=== PATIENT | female | born 1960 | race American Indian/Alaskan Native ===

== ENCOUNTER → 2023-11-02 | Outpatient (CLI) | payer SELFPAY | END | disposition home or self-care (01) | LOC: CARD 08:41 | PROVIDERS: ATTEND Internal Medicine | DX: I45.10 Unspecified right bundle-branch block (principal); I10 Essential (primary) hypertension; J44.9 Chronic obstructive pulmonary disease, unspecified; E78.5 Hyperlipidemia, unspecified | CPT/HCPCS: 78452; 93017; A9500 ==

== ENCOUNTER 2024-06-09 02:21 | Inpatient (IN) | payer MEDICAID, OTHER ==
[~2024-06-09] VITALS: Ht 170.2 cm; Wt 125.0 kg
[2024-06-09] VITALS (58 sets, daily range): BP systolic 102–159; BP diastolic 54–110; PULSE 60–97; RESP 17–90; TEMP 98–98.2; O2SAT 90–100
[2024-06-09] MEDS: DexAMETHasone SOD PHOS 10MG/1ML VIAL INJ ONE (02:42)
[2024-06-09] MEDS: diphenhdrAMINE HCL 50 MG/1 ML VL IV ONE (02:43)
[2024-06-09] MEDS: DexAMETHasone INJECTION 10 MG in D5W 5% 50 ML IV ONE (02:43)
[2024-06-09] MEDS: SUCCINYLCHOLINE CHLORIDE 20 MG/ML 10ML VIAL IV ONE ×2 (02:48→02:52)
[2024-06-09] MEDS: ONDANSETRON HCL 4 MG/2 ML VIAL ONE (02:48)
[2024-06-09] MEDS: ETOMIDATE (2MG/ML) 20ML VIAL IV ONE ×2 (02:48→02:50)
[2024-06-09] MEDS: ONDANSETRON HCL 4 MG/2 ML VIAL IV ONE (02:49)
[2024-06-09 02:58] LABS: Basophils # (auto) 0.1 10 ^3/uL (0-0.2); Eosinophils # (auto) 0.4 10 ^3/uL (0-0.8); Hemoglobin 13.7 g/dL (12.2-16.2); Lymphocytes # (auto) 2.6 10 ^3/uL (0.4-5.4); Mean Corpuscular Volume 80.5 fL (80.0-100.0); Nucleated Red Blood Cells % 0.1 %
[2024-06-09 03:04] LABS: Basophils % (auto) 1.1 % (0.0-2.0); Eosinophils % (auto) 3.5 % (0.0-7.0); Hematocrit 42.1 % (36.0-46.0); Lymphocytes % (auto) 26.3 % (10.0-50.0); Mean Corpuscular Hemoglobin 26.2 pg (28.0-32.0); Mean Corpuscular Hgb Conc. 32.6 g/dL (32.0-36.0); Monocytes # (auto) 0.7 10 ^3/uL (0-1.3); Monocytes % (auto) 6.9 % (0.0-12.0); Neutrophils # (auto) 6.2 10 ^3/uL (1.6-8.6); Neutrophils % (auto) 62.2 % (37.0-80.0); Platelet Count (auto) 263 10^3/uL (140-450); Red Blood Cells 5.23 10^6/uL (4.0-5.20); Red Cell Distribution Width 15.5 % (11.8-14.3)
[2024-06-09] MEDS: MAGNESIUM SULFATE 1GM/100ML 100 ML IV SCH (03:04)
[2024-06-09] MEDS: PROPOFOL 100 ML IV SCH (03:15)
[2024-06-09] MEDS ORDERED: MIDAZOLAM HCL 5 MG/ML-1ML VIAL IV ONE (03:15)
[2024-06-09] MEDS: MIDAZOLAM DRIP 50 mg/50mL 50 ML IV SCH (03:15)
[2024-06-09] MEDS: EPINEPHrine HCL 1 MG/1 ML AMP IM ONE (03:20)
[2024-06-09] MEDS: PROPOFOL 100 ML IV ONE (03:20)
[2024-06-09] MEDS: MIDAZOLAM HCL 5 MG/ML-1ML VIAL IV ONE ×2 (03:20→03:30)
[2024-06-09] MEDS: MIDAZOLAM DRIP 50 mg/50mL 50 ML IV ONE (03:20)
[2024-06-09] MEDS: MAGNESIUM SULFATE 1GM/100ML 200 ML IV ONE (03:20)
[2024-06-09] MEDS: MIDAZOLAM HCL 5 MG/ML-1ML VIAL ONE (03:20)
[2024-06-09] MEDS: METOPROLOL TARTRATE 1MG/1ML-5ML VIAL IV ONE ×2 (03:29)
[2024-06-09] MEDS: ALBUTEROL SULF 2.5 MG/0.5ML(0.5%) NEB SOLN NEB ONE (03:34)
[2024-06-09 03:49] LABS: Alanine Aminotransferase 19 U/L (7-40); Albumin 4.4 g/dL (3.2-4.8); Anion Gap 8 (5-15); Aspartate Aminotransferase 28 U/L (13-40); BUN/Creatinine Ratio 10.7 (10.0-20.0); Bilirubin, Total 0.4 mg/dL (0.2-1.0); Blood Urea Nitrogen 11 mg/dL (9-23); Calcium 9.9 mg/dL (8.7-10.4); Carbon Dioxide 23 mmol/L (20-31); Potassium 3.8 mmol/L (3.5-5.1); Sodium 141 mmol/L (136-145); Total Protein 7.6 g/dL (5.7-8.2)
--- NOTE | 2024-06-09 04:00 | ED.PDOC ---
HPI Allergic reaction HPI Comments 63-year-old female came to emergency room due to allergic reaction. Patient has history of hypertension, but she could not recall what medication she takes. As of 7:00 p.m. last night, patient has been experiencing facial swelling, tongue swelling, throat swelling, difficulty swallowing, shortness of breath and wheezing. Patient unable to speak in full sentences, and in respiratory distress at this time care, saturating 95% on room air Chief Complaint: Allergic Reaction Time Seen by MD: 03:58 Reviewed Notes: Nurses Notes Allergies: Coded Allergies: NO KNOWN ALLERGIES (Unverified , 06/09/24) Home Meds Reported Medications Lisinopril (Lisinopril) 20 Mg Tab, 1 TAB PO BID 06/09/24 Atorvastatin Calcium (ATORVASTATIN CALCIUM) 20 Mg Tab, 1 TAB PO DAILY 06/09/24 Information Source: Patient Mode of Arrival: Ambulatory Severity: Severe Rash: None SOB: Severe Difficulty swallowing: Severe Pruritus: None Timing: Hours Duration: Since onset Prehospital treatment: None Location: Face, Throat, Tongue Exposed to: Medication Developed: Difficult Swallowing, Facial Swelling Review of Systems REVIEW OF SYSTEMS: No fever, no chills, or fatigue HEENT: (+) difficulty swallowing, (+) tongue swelling, no earache, no congestion, no neck pain. Cardiac: No chest pain. No palpitations. Lungs: (+) shortness of breath, no cough. GI: No nausea, no vomiting, no diarrhea, no constipation, no abdominal pain : No dysuria, frequency, or urgency. No hematuria. Musculoskeletal: No joint pain , no joint swelling, no extremity edema. Skin: No rash, no itching. Neuro: No headache, no dizziness, no weakness Vital Signs Vital Signs Date Time Temp Pulse Resp B/P (MAP) Pulse Ox O2 Delivery O2 Flow Rate FiO2 06/09/24 07:45 94 22 151/102 (118) 96 06/09/24 07:33 Mechanical Ventilator+ 70 70 06/09/24 03:08 99.0 99.0 06/09/24 02:49 0 Physical Exam General: Awake, alert and oriented. Skin: Skin in warm, dry and intact. Appropriate color for ethnicity. Nailbeds pink with no cyanosis. HEENT: Tongue is swollen and protruding from mouth, patient is unable to swallow her secretions, muffled voice Neck: The neck is supple with normal range of motion. No JVD. Cardiac: Heart rate and rhythm are normal. No murmurs, gallops, or rubs are auscultated. Respiratory: No wheezing, no stridor, patient is tachypneic Abdominal: Abdomen is soft, non-tender without distention. Bowel sounds are present and normoactive in all four quadrants. Extremities: Upper and lower extremities are atraumatic in appearance without deformity Neurological: The patient is awake, alert and oriented to person, place, and time with normal speech. Speech is clear. There is no facial asymmetry. Past Medical History PAST MEDICAL HISTORY: HTN Surgical History: Denies all surgeries APPLICATIONS TESTER History: Denies all APPLICATIONS TESTER Hx Family History Family History: Reviewed,noncontributory to illness Social History Smoker: Non-Smoker Alcohol: Denies ETOH Use Drugs: Denies Drug Use Lives In: Home Was a procedure done? Was a procedure done?: Yes Sedation Sedation?: Yes Informed consent obtained: Yes Sedation start time: 02:48 Sedation end time: 03:48 Sedation total time: Patient is still sedated at this time Intubation Indication: Airway Protection Prep: Preoxygenation Pretreated with: Sedation Medicated with: Succinylcholine, Other (Etomidate) Intubation Approach: Orotracheal Intubation size: cm (6.5, 24 of the lip) Informed consent obtained: Yes Risks/benefits/alt described: Yes EKG EKG : Pulse Rate (adult): 133 Cardiac Rhythm: ST Block: RBBB Comments Left anterior fascicular block, No STEMI Differential diagnosis (all) Differential Diagnosis: Anaphylaxis, Angioedema, Bronchospasm, Drug Reaction, Other X-Ray, Labs, Meds, VS Vital Signs Date Time Temp Pulse Resp B/P (MAP) Pulse Ox O2 Delivery O2 Flow Rate FiO2 06/09/24 07:45 94 22 151/102 (118) 96 06/09/24 07:33 94 22 95 Mechanical Ventilator+ 70 70 06/09/24 07:21 87 22 140/54 (82) 95 70 06/09/24 07:15 87 22 140/99 (113) 95 06/09/24 07:00 137/97 06/09/24 07:00 137/97 06/09/24 07:00 88 22 138/93 (108) 95 06/09/24 06:39 142/100 (114) 95 70 06/09/24 06:30 90 22 142/100 (114) 97 06/09/24 06:15 93 22 152/108 (123) 96 06/09/24 06:00 151/108 06/09/24 06:00 151/108 06/09/24 06:00 95 22 151/108 (122) 96 06/09/24 05:45 98 22 159/108 (125) 97 06/09/24 05:34 94 22 159/108 (125) 96 100 06/09/24 05:30 94 22 165/113 (130) 96 06/09/24 05:15 95 22 162/112 (129) 96 06/09/24 05:00 97 22 160/112 (128) 95 06/09/24 05:00 160/112 06/09/24 05:00 160/112 06/09/24 04:45 97 22 157/110 (126) 97 06/09/24 04:40 97 22 157/110 (126) 97 100 06/09/24 04:30 96 18 150/107 (121) 97 06/09/24 04:29 96 150/107 06/09/24 04:15 96 19 136/98 (111) 97 06/09/24 04:00 96 20 129/96 (107) 95 06/09/24 04:00 129/96 06/09/24 04:00 129/99 06/09/24 04:00 133 06/09/24 03:55 120/93 06/09/24 03:45 91 20 120/93 (102) 97 06/09/24 03:45 120/93 06/09/24 03:45 120/93 06/09/24 03:30 128 19 131/94 (106) 97 06/09/24 03:30 131/94 06/09/24 03:29 126 131/94 06/09/24 03:15 197/131 06/09/24 03:15 197/131 06/09/24 03:15 197/131 06/09/24 03:15 130 20 197/131 (153) 92 06/09/24 03:09 133 06/09/24 03:08 99.0 98 20 160/103 (122) 95 99.0 06/09/24 03:00 142 19 97 06/09/24 02:55 132 26 177/122 (140) 94 100 06/09/24 02:49 94 19 94 Room Air* 0 21 06/09/24 02:45 96 19 168/108 (128) 94 Lab Test 06/09/24 06:35 06/09/24 05:47 06/09/24 04:32 06/09/24 04:19 Range/Units Blood Gas Specimen Type Arterial Arterial Blood Gas Sample Site Left radial Right brachial Blood Gas Patient Temperature 37.0 37.0 Arterial Blood Date Drawn [id number] Arterial Blood pH 7.354 7.281 L 7.350-7.450 Arterial Blood Partial Pressure CO2 41.1 49.9 H 32.0-45.0 mmHg Arterial Blood Partial Pressure O2 104.6 117.6 H 83.0-108.0 mmHg Arterial Blood HCO3 22.4 23.0 21.0-28.0 mmol/L Arterial Blood Oxygen Saturation 97.4 97.9 94.0-98.0 % Arterial Blood Base Excess -3.0 L -4.1 L -2.0-3.0 mmol/L Arterial Blood Oxyhemoglobin 95.4 95.2 94.0-98.0 % Arterial Blood Carboxyhemoglobin 1.5 2.2 H 0.5-1.5 % Arterial Blood Methemoglobin 0.6 0.6 0.0-1.5 % Ken Test Modified Modified Blood Gas Total Hemoglobin 14.60 14.30 12.0-16.0 g/dL Blood Gas Set Respiration Rate 22.0 14.0 Blood Gas Modality Vent - ac Vent - ac FiO2 % 100.0 100.0 Blood Gas Tidal Volume 500.0 500.0 Blood Gas PEEP or CPAP 10.0 10.0 Troponin I High Sensitivity 286 *H </=34 ng/L Urine Color Colorless Yellow Urine Clarity Clear Clear Urine pH 6.0 5.0-9.0 Urine Specific [place] 1.005 1.001-1.035 Urine Protein Negative Negative Urine Ketones Negative Negative Urine Blood Negative Negative /uL Urine Nitrite Negative Negative Urine Bilirubin Negative Negative Urine Urobilinogen Normal Negative mg/dL Urine Leukocyte Esterase Negative Negative /uL Urine RBC 1 0 - 4 /hpf Urine Microscopic WBC < 1 0-5 /HPF Urine Squamous Epithelial Cells Few <5 /hpf Urine Bacteria Few H None Seen /hpf Urine Mucus Few None Seen Urine Glucose Normal Normal mg/dL Test 06/09/24 03:45 06/09/24 02:44 Range/Units Troponin I High Sensitivity 37 *H 6 </=34 ng/L White Blood Count 10.0 4.4-10.8 10^3/uL Red Blood Count 5.23 H 4.0-5.20 10^6/uL Hemoglobin 13.7 12.2-16.2 g/dL Hematocrit 42.1 36.0-46.0 % Mean Corpuscular Volume 80.5 80.0-100.0 fL Mean Corpuscular Hemoglobin 26.2 L 28.0-32.0 pg Mean Corpuscular Hemoglobin Concent 32.6 32.0-36.0 g/dL Red Cell Distribution Width 15.5 H 11.8-14.3 % Platelet Count 263 140-450 10^3/uL Mean Platelet Volume 7.7 6.9-10.8 fL Neutrophils (%) (Auto) 62.2 37.0-80.0 % Lymphocytes (%) (Auto) 26.3 10.0-50.0 % Monocytes (%) (Auto) 6.9 0.0-12.0 % Eosinophils (%) (Auto) 3.5 0.0-7.0 % Basophils (%) (Auto) 1.1 0.0-2.0 % Neutrophils # (Auto) 6.2 1.6-8.6 10 ^3/uL Lymphocytes # (Auto) 2.6 0.4-5.4 10 ^3/uL Monocytes # (Auto) 0.7 0-1.3 10 ^3/uL Eosinophils # (Auto) 0.4 0-0.8 10 ^3/uL Basophils # (Auto) 0.1 0-0.2 10 ^3/uL Nucleated Red Blood Cells 0.1 % Sodium Level 141 136-145 mmol/L Potassium Level 3.8 3.5-5.1 mmol/L Chloride Level 110 H 98-107 mmol/L Carbon Dioxide Level 23 20-31 mmol/L Anion Gap 8 5-15 Blood Urea Nitrogen 11 9-23 mg/dL Creatinine 1.03 H 0.550-1.02 mg/dL Glomerular Filtration Rate Calc 61 >90 mL/min BUN/Creatinine Ratio 10.7 10.0-20.0 Serum Glucose 114 H 74-106 mg/dL Hemoglobin A1c 6.1 H <5.7 % A1C Lactic Acid Level 1.2 0.4-2.0 mmol/L Calcium Level 9.9 8.7-10.4 mg/dL Total Bilirubin 0.4 0.2-1.0 mg/dL Aspartate Amino Transferase (AST) 28 13-40 U/L Alanine Aminotransferase (ALT) 19 7-40 U/L Alkaline Phosphatase 144 H 46-116 U/L B-Type Natriuretic Peptide 20.54 0-100 pg/mL Total Protein 7.6 5.7-8.2 g/dL Albumin 4.4 3.2-4.8 g/dL Current Medications Medications (Trade) Dose Ordered Sig/Maday Route Start Time Stop Time Status Last Admin Epinephrine HCl 0.5 mg ONCE ONCE IM 06/09/24 02:45 06/09/24 02:46 DC 06/09/24 03:20 Dexamethasone Sodium Phosphate 10 mg/Dextrose 51 ml @ 204 mls/hr ONCE ONCE IV 06/09/24 02:45 06/09/24 02:59 DC 06/09/24 02:43 Diphenhydramine HCl (Benadryl Injection) 50 mg ONCE ONCE IV 06/09/24 02:45 06/09/24 02:46 DC 06/09/24 02:43 Ondansetron HCl (Zofran) 4 mg ONCE ONCE IV 06/09/24 03:00 06/09/24 03:01 DC 06/09/24 02:49 Etomidate 20 mg ONCE ONCE IV 06/09/24 03:00 06/09/24 03:26 DC 06/09/24 02:50 Succinylcholine Chloride (Quelicin) 100 mg ONCE ONCE IV 06/09/24 03:00 06/09/24 03:26 DC 06/09/24 02:52 Propofol 100 ml @ 3.558 mls/ hr Q24H IV 06/09/24 03:00 06/09/24 12:49 Metoprolol Tartrate (Lopressor) 5 mg ONCE ONCE IV 06/09/24 03:15 06/09/24 03:26 DC 06/09/24 03:29 Albuterol (Ventolin Medneb) 2.5 mg ONCE ONCE NEB 06/09/24 03:15 06/09/24 03:16 DC 06/09/24 03:34 Midazolam HCl 50 ml @ 1 mls/hr Q24H IV 06/09/24 03:15 06/09/24 14:10 Midazolam HCl (Versed Injection) 10 mg ONCE ONCE IV 06/09/24 04:30 06/09/24 04:31 DC 06/09/24 03:20 Magnesium Sulfate/ Dextrose 100 ml @ 100 mls/hr Q1H IV 06/09/24 07:45 06/09/24 08:30 DC 06/09/24 03:19 CHEST RADIOGRAPH Indication: Shortness of breath Technique: Single frontal view of the chest was obtained COMPARISON: None FINDINGS: Lines and Tubes: Endotracheal tube tip projects approximately 2.7 cm above the level of the ambar. Enteric catheter courses below the level of the diaphragm, terminating within the left upper quadrant. Lungs: Moderate opacification of the left lung consistent with pulmonary airspace disease. Pleura: No effusion. No pneumothorax. Cardiomediastinal contours: The heart is enlarged. Bones: Unremarkable IMPRESSION: 1. Left pulmonary airspace disease. 2. Cardiomegaly. 3. Lines and tubes as above. Time of 1ST Reevaluation: 03:55 Reevaluation 1ST: Unchanged Patient Education/Counseling: Diagnosis, Treatment Family Education/Counseling: No Family Present Departure 1 Departure Time of Disposition: 04:53 Impression: Primary Impression: Angioedema Additional Impressions: Endotracheally intubated Elevated troponin Disposition: 01 HOME / SELF CARE / HOMELESS Condition: Stable Comments 63-year-old female who presented to the emergency department with significant tongue swelling, she was having difficulty managing her secretions, difficulty speaking. Patient was seen in triage, taken to ED bed immediately. Administered Decadron, epinephrine. Patient was intubated immediately for concerning impending airway compromise. There was significant edema of the airway structures. Patient was intubated on the 2nd attempt using the GlideScope. Patient went into a sinus tachycardic rhythm with bundle branch block at a rate of 135 after the intubation. Patient's heart rate and blood pressure improved after dose of metoprolol. Patient admitted for further treatment, evaluation and monitoring. Discussed with the patient's daughter via phone. Extensive evaluation was performed in attempt to identify or rule out: (See differential diagnosis section) The following tests were ordered, and results were reviewed by me and discussed with patient: (See diagnostic results section) The following test were independently interpreted by me: EKG, I reviewed and agreed with the following test results read by other providers: N/A I reviewed the following notes from the pt's past medical encounters: N/A Additional information was gathered from interviewing the following independent historians: Patient's daughter Discussion of management or test interpretation with external physician/other qualified health director long term care: N/A Addressed an acute or chronic illness that poses a threat to life or bodily function: Angioedema, airway compromise Decision regarding hospitalization or escalation of hospital level of care: Risk and benefits of admission for further treatment of patient's condition was considered. Due to patient's current clinical condition, high risk of decline and poor outcome if discharged and need for further inpatient management and monitoring, patient will be admitted to the hospital. Discussed with patient. Drug therapy requiring intensive monitoring for toxicity: IV succinylcholine, IV dexamethasone, IM epinephrine Parenteral controlled substances: IV etomidate, IV propofol, IV Versed Decision regarding elective major surgery with identified patient or procedure risk factors: N/A Decision regarding emergency major surgery: N/A Decision not to resuscitate or to de-escalate care because of poor prognosis: N/A Diagnosis or treatment significantly limited by social determinants of health: N/A Critical Care Note Critical Care Time?: Yes (35 min-critical care time only) Critical care comment: Angioedema. Due to a high probability of clinically significant, life threatening deterioration, the patient required my highest level of preparedness to intervene emergently and I personally spent this critical care time directly and personally managing the patient. This critical care time included obtaining a history; examining the patient; pulse oximetry; ordering and review of studies; arranging urgent treatment with development of a management plan; evaluation of patient's response to treatment; frequent reassessment; and, discussions with other providers. This critical care time was performed to assess and manage the high probability of imminent, life-threatening deterioration that could result in multi-organ failure. It was exclusive of separately billable procedures and treating other patients and teaching time. Please see my other sections and the rest of the note for further information on patient assessment and treatment. Stability Stability form required: No Heart Score Heart Score: Heart Score Response (Comments) Value History N/A 0 EKG N/A 0 Age N/A 0 Risk Factors N/A 0 Troponin N/A 0 Total 0 I personally scribed for ISABEL IVORY MD ([email or web address]) on 06/09/24 at 04:00. Electronically submitted by Ryne Villar ([place]). I personally scribed for ISABEL IVORY MD ([email or web address]) on 06/09/24 at 04:49. Electronically submitted by Ryne Villar ([place]). ISABEL IVORY MD Jun 09, 2024 04:00
--- NOTE | 2024-06-09 04:21 | DVH ---
CHEST RADIOGRAPH Indication: Shortness of breath Technique: Single frontal view of the chest was obtained COMPARISON: None FINDINGS: Lines and Tubes: Endotracheal tube tip projects approximately 2.7 cm above the level of the ambar. E nteric catheter courses below the level of the diaphragm, terminating within the left upper quadrant. Lungs: Moderate opacification of the left lung consistent with pulmonary airspace disease. Pleura: No effusion. No pneumothorax. Cardiomediastinal contours: The heart is enlarged. Bones: Unremarkable IMPRESSION: 1. Left pulmonary airspace disease. 2. Cardiomegaly. 3. Lines and tubes as above.
[2024-06-09 04:29] LABS: Alkaline Phosphatase 144 U/L (46-116); Chloride 110 mmol/L (98-107); Glucose 114 mg/dL (74-106)
[2024-06-09 04:37] LABS: Base Excess -4.1 mmol/L (-2.0-3.0)
[2024-06-09 04:52] LABS: Urine Bacteria FEW /hpf (None Seen); Urine Blood Negative /uL (Negative); Urine Clarity Clear (Clear); Urine Color Colorless (Yellow); Urine Mucus FEW (None Seen); Urine Protein, UAD Negative (Negative); Urine Specific Gravity 1.005 (1.001-1.035); Urine Squamous Epithelial Cell FEW /hpf (<5); Urine Urobilinogen Normal (Negative); Urine WBC < 1 /HPF (0-5)
--- NOTE | 2024-06-09 05:14 | ECG ---
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
--- NOTE | 2024-06-09 07:56 | DVHHP2 ---
History of Present Illness Reason for Visit: Allergic reaction History of Present Illness This 63-year-old female presents in the ED with a chief complaint of allergic reaction. Upon assessment, the patient is currently intubated due to severe allergic reaction with angioedema. Medical records obtained from nursing staff, apparently symptoms of facial swelling, tongue swelling, throat swelling, shortness of breath, and wheezing started last night. Past medical history of hypertension and obesity Past Medical History As stated in HPI Past Surgical History Unknown Family History Unknown Past Social History Unknown Review of Systems Review of Systems ROS see HPI Allergies: Coded Allergies: NO KNOWN ALLERGIES (Unverified , 06/09/24) Medications Current Medications Medications Dose Ordered Sig/Maday Route Start Time Stop Time Status Last Admin Dose Admin Propofol 100 ml @ 3.558 mls/ hr Q24H IV 06/09/24 03:00 06/09/24 03:15 3.558 MLS/HR Midazolam HCl 50 ml @ 1 mls/hr Q24H IV 06/09/24 03:15 06/09/24 03:15 1 MLS/HR Magnesium Sulfate/ Dextrose 100 ml @ 100 mls/hr Q1H IV 06/09/24 07:45 06/09/24 09:44 UNV Exam Vital Signs Vital Signs Date Time Temp Pulse Resp B/P (MAP) Pulse Ox O2 Delivery O2 Flow Rate FiO2 06/09/24 07:33 94 22 95 Mechanical Ventilator+ 70 70 06/09/24 07:21 140/54 (82) 06/09/24 03:08 99.0 99.0 06/09/24 02:49 0 General Appearance: Other (Orally intubated) HEENT: Atraumatic, Other (Angioedema) Respiratory: Clear to auscultation, Normal air movement, Other (Mechanical intubation) Cardiovascular: Regular rate, Normal S1 Abdominal: Normal bowel sounds, Soft, No tenderness Extremities: No clubbing, No cyanosis, No edema, Normal pulses Skin: No rashes, No breakdown Neuro: Other (Sedated) Labs/Xrays Labs Test 06/09/24 06:35 06/09/24 05:47 06/09/24 04:19 06/09/24 02:44 Range/Units Blood Gas Specimen Type Arterial Blood Gas Sample Site Left radial Blood Gas Patient Temperature 37.0 Arterial Blood Date Drawn [id number] Arterial Blood pH 7.354 7.350-7.450 Arterial Blood Partial Pressure CO2 41.1 32.0-45.0 mmHg Arterial Blood Partial Pressure O2 104.6 83.0-108.0 mmHg Arterial Blood HCO3 22.4 21.0-28.0 mmol/L Arterial Blood Oxygen Saturation 97.4 94.0-98.0 % Arterial Blood Base Excess -3.0 L -2.0-3.0 mmol/L Arterial Blood Oxyhemoglobin 95.4 94.0-98.0 % Arterial Blood Carboxyhemoglobin 1.5 0.5-1.5 % Arterial Blood Methemoglobin 0.6 0.0-1.5 % Ken Test Modified Blood Gas Total Hemoglobin 14.60 12.0-16.0 g/dL Blood Gas Set Respiration Rate 22.0 Blood Gas Modality Vent - ac FiO2 % 100.0 Blood Gas Tidal Volume 500.0 Blood Gas PEEP or CPAP 10.0 Troponin I High Sensitivity 286 *H </=34 ng/L Urine Color Colorless Yellow Urine Clarity Clear Clear Urine pH 6.0 5.0-9.0 Urine Specific [place] 1.005 1.001-1.035 Urine Protein Negative Negative Urine Ketones Negative Negative Urine Blood Negative Negative /uL Urine Nitrite Negative Negative Urine Bilirubin Negative Negative Urine Urobilinogen Normal Negative mg/dL Urine Leukocyte Esterase Negative Negative /uL Urine RBC 1 0 - 4 /hpf Urine Microscopic WBC < 1 0-5 /HPF Urine Squamous Epithelial Cells Few <5 /hpf Urine Bacteria Few H None Seen /hpf Urine Mucus Few None Seen Urine Glucose Normal Normal mg/dL White Blood Count 10.0 4.4-10.8 10^3/uL Red Blood Count 5.23 H 4.0-5.20 10^6/uL Hemoglobin 13.7 12.2-16.2 g/dL Hematocrit 42.1 36.0-46.0 % Mean Corpuscular Volume 80.5 80.0-100.0 fL Mean Corpuscular Hemoglobin 26.2 L 28.0-32.0 pg Mean Corpuscular Hemoglobin Concent 32.6 32.0-36.0 g/dL Red Cell Distribution Width 15.5 H 11.8-14.3 % Platelet Count 263 140-450 10^3/uL Mean Platelet Volume 7.7 6.9-10.8 fL Neutrophils (%) (Auto) 62.2 37.0-80.0 % Lymphocytes (%) (Auto) 26.3 10.0-50.0 % Monocytes (%) (Auto) 6.9 0.0-12.0 % Eosinophils (%) (Auto) 3.5 0.0-7.0 % Basophils (%) (Auto) 1.1 0.0-2.0 % Neutrophils # (Auto) 6.2 1.6-8.6 10 ^3/uL Lymphocytes # (Auto) 2.6 0.4-5.4 10 ^3/uL Monocytes # (Auto) 0.7 0-1.3 10 ^3/uL Eosinophils # (Auto) 0.4 0-0.8 10 ^3/uL Basophils # (Auto) 0.1 0-0.2 10 ^3/uL Nucleated Red Blood Cells 0.1 % Sodium Level 141 136-145 mmol/L Potassium Level 3.8 3.5-5.1 mmol/L Chloride Level 110 H 98-107 mmol/L Carbon Dioxide Level 23 20-31 mmol/L Anion Gap 8 5-15 Blood Urea Nitrogen 11 9-23 mg/dL Creatinine 1.03 H 0.550-1.02 mg/dL Glomerular Filtration Rate Calc 61 >90 mL/min BUN/Creatinine Ratio 10.7 10.0-20.0 Serum Glucose 114 H 74-106 mg/dL Lactic Acid Level 1.2 0.4-2.0 mmol/L Calcium Level 9.9 8.7-10.4 mg/dL Total Bilirubin 0.4 0.2-1.0 mg/dL Aspartate Amino Transferase (AST) 28 13-40 U/L Alanine Aminotransferase (ALT) 19 7-40 U/L Alkaline Phosphatase 144 H 46-116 U/L B-Type Natriuretic Peptide 20.54 0-100 pg/mL Total Protein 7.6 5.7-8.2 g/dL Albumin 4.4 3.2-4.8 g/dL PROCEDURE(s): CXR1 - CHEST XRAY 1 VIEW REASON: Shortness of breath ORDER NUMBER(s): [id number], ACCESSION NUMBER(s): [id number] CHEST RADIOGRAPH Indication: Shortness of breath Technique: Single frontal view of the chest was obtained COMPARISON: None FINDINGS: Lines and Tubes: Endotracheal tube tip projects approximately 2.7 cm above the level of the ambar. Enteric catheter courses below the level of the diaphragm, terminating within the left upper quadrant. Lungs: Moderate opacification of the left lung consistent with pulmonary airspace disease. Pleura: No effusion. No pneumothorax. Cardiomediastinal contours: The heart is enlarged. Bones: Unremarkable IMPRESSION: 1. Left pulmonary airspace disease. 2. Cardiomegaly. 3. Lines and tubes as above. 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
[2024-06-09] MEDS ORDERED: LISI20TA56 PO (08:00)
[2024-06-09] MEDS: hydrALAZINE HCL 20 MG/ML VL IV ONE (08:00)
[2024-06-09] MEDS ORDERED: ATOR20TA50 PO (08:00)
[2024-06-09] MEDS ORDERED: IPRATROPIUM BROM 0.5 MG/2.5ML INH SOL NEB PRN (10:00)
[2024-06-09] MEDS ORDERED: ALBUTEROL SULF 2.5 MG/0.5ML(0.5%) NEB SOLN NEB PRN (10:00)
[2024-06-09] MEDS ORDERED: diphenhdrAMINE HCL 50 MG/1 ML VL IV PRN (10:00)
[2024-06-09] MEDS: methylPREDNISolone SOD SUCC 125 MG/2 ML VL IV SCH (10:26)
[2024-06-09 10:28] LABS: Cholesterol 190 mg/dL (< 200)
[2024-06-09] MEDS: ENOXAPARIN SOD 40 MG/0.4 ML SYRINGE SC SCH (10:29)
[2024-06-09] MEDS: SODIUM CHLORIDE 0.9% 1,000 ML IV SCH (10:34)
[2024-06-09] MEDS: PANTOPRAZOLE 40 MG/10 ML VIAL INJ IV SCH (10:35)
[2024-06-09 10:39] LABS: HDL Cholesterol 31 mg/dL (40-59); LDL Cholesterol 134 mg/dL (< 100); Triglycerides 163 mg/dL (< 150)
[2024-06-09 10:42] LABS: COVID19 ANTIGEN SOFIA FIA NEGATIVE (NEGATIVE); Rapid Influenza A Negative (Negative); Rapid Influenza B Negative (Negative)
[2024-06-09] MEDS: ASPirin 325 MG TAB PO ONE (10:43)
[2024-06-09] MEDS: ALBUTEROL SULF 2.5 MG/0.5ML(0.5%) NEB SOLN NEB SCH (11:59)
[2024-06-09] MEDS: IPRATROPIUM BROM 0.5 MG/2.5ML INH SOL NEB SCH (11:59)
--- NOTE | 2024-06-09 13:57 | DVHSR ---
APPROVED REPORT EXAM: LIMITED Two-dimensional and M-mode echocardiogram with Doppler and color Doppler. Blood Pressure: 140/99 mmHg INDICATION Elevated [place] RISK FACTORS Obesity: Height: 5' 7", Weight: 261 DIMENSIONS LVDd4.2 (3.8-5.7cm)LA (2D)3.9 (1.9-4.0cm)Aortic Root2.9 (2.0-3.7cm) LVDs3.4 (2.5-4.0cm)LA (MM) (1.9-4.0cm)Aortic Cusp Exc1.6 (1.5-2.0cm) EF (%) 40.0 (55-70%)Rt. Atrium3.8 (1.9-4.0cm)Asc. Aorta cm Mitral Valve MitralMitral Stenosis E wave0.50m/sMV Mean GR.mmHg A wave0.90m/sMV Peak GR.mmHg E/A ratio0.62D MVAcm2 Aortic Valve Aortic ValveAortic Stenosis V10.90m/Mary Mean GR.4mmHg V21.30m/Mary Peak GR.8mmHg LVOT Diameter2.0 (1.8-2.4cm)Doppler AVA2.17cm2 Pulmonic Valve V20.60m/s Other Information Quality : Technically LimitedRhythm : Technically limited study due to body habitus, patient position and on vent. Conclusion lvef 45% by visual estimatea apical wall motion abnormality noted, hypokinesis normal rv function leftl atria enlarged no severe valve abnormalities noted
--- NOTE | 2024-06-09 16:12 | DVHINCON2 ---
Date of service: Jun 09, 2024 History of Present Illness 63-year-old female came to emergency room due to allergic reaction. Patient has history of hypertension, but she could not recall what medication she takes. As of 7:00 p.m. last night, patient has been experiencing facial swelling, tongue swelling, throat swelling, difficulty swallowing, shortness of breath and wheezing. Patient unable to speak in full sentences, and in respiratory distress at this time care, saturating 95% on room air Chief Complaint: Allergic Reaction Time Seen by MD: 03:58 Reviewed Notes: Nurses Notes Allergies: Past Medical History reviewed Allergies: Coded Allergies: NO KNOWN ALLERGIES (Unverified , 06/09/24) Home Meds Reported Medications Lisinopril (Lisinopril) 20 Mg Tab, 1 TAB PO BID 06/09/24 Atorvastatin Calcium (ATORVASTATIN CALCIUM) 20 Mg Tab, 1 TAB PO DAILY 06/09/24 Current Medications Current Medications Medications (Trade) Dose Ordered Sig/Maday Route PRN Reason Start Time Stop Time Status Last Admin Propofol 100 ml @ 3.558 mls/ hr Q24H IV 06/09/24 03:00 06/09/24 12:49 Midazolam HCl 50 ml @ 1 mls/hr Q24H IV 06/09/24 03:15 06/09/24 14:10 Magnesium Sulfate/ Dextrose 100 ml @ 100 mls/hr Q1H IV 06/09/24 07:45 06/09/24 08:30 DC 06/09/24 03:19 Sodium Chloride 1,000 ml @ 75 mls/hr [id number] IV 06/09/24 08:00 06/09/24 10:34 Ondansetron HCl (Zofran) 4 mg Q4HP PRN IV NAUSEA / VOMITING 06/09/24 08:00 Enoxaparin Sodium (Lovenox) 40 mg DAILY SC 06/09/24 10:00 06/09/24 10:29 Methylprednisolone Sodium Succinate (Solu Medrol) 60 mg BID IV 06/09/24 10:00 06/09/24 10:26 Hydralazine HCl (Apresoline Injection) 10 mg Q6HP PRN IV SBP>150 06/09/24 08:00 Aspirin 81 mg DAILY PO 06/10/24 10:00 Atorvastatin Calcium (Lipitor) 40 mg HS PO 06/09/24 22:00 Diphenhydramine HCl (Benadryl Injection) 25 mg Q6HP PRN IV FOR ITCHING 06/09/24 10:00 Pantoprazole Sodium (Protonix) 40 mg DAILY IV 06/09/24 10:00 06/09/24 10:35 Albuterol (Ventolin Medneb) 2.5 mg Q4HPRN PRN NEB SHORTNESS OF BREATH 06/09/24 10:00 Albuterol (Ventolin Medneb) 2.5 mg Q6HR NEB 06/09/24 12:00 06/09/24 11:59 Ipratropium [place] (Atrovent Medneb) 0.5 mg Q4HPRN PRN NEB SHORTNESS OF BREATH 06/09/24 10:00 Ipratropium [place] (Atrovent Medneb) 0.5 mg Q6HR NEB 06/09/24 12:00 06/09/24 11:59 Review of Systems 10 pt ros otherwise negative Vital Signs Vital Signs Date Time Temp Pulse Resp B/P (MAP) Pulse Ox O2 Delivery O2 Flow Rate FiO2 06/09/24 15:56 68 22 111/79 (90) 95 60 06/09/24 12:00 98.0 98.0 06/09/24 08:00 Mechanical Ventilator+ 06/09/24 02:49 0 Physical Exam intubated sedated minor facial swelling, s1 s2 rrr ctab soft nt/nd no edema Labs/Diagnostic Data Labs Test 06/09/24 12:35 06/09/24 10:11 06/09/24 08:03 06/09/24 06:35 Range/Units Troponin I High Sensitivity 517 *H </=34 ng/L Influenza Type A Antigen Negative Negative Influenza Type B Antigen Negative Negative SARS-CoV-2 Antigen (Rapid) Negative NEGATIVE Triglycerides Level 163 H < 150 mg/dL Cholesterol Level 190 < 200 mg/dL LDL Cholesterol 134 H < 100 mg/dL HDL Cholesterol 31 L 40-59 mg/dL Thyroid Stimulating Hormone (TSH) 1.76 0.55-4.78 uIU/mL Blood Gas Specimen Type Arterial Blood Gas Sample Site Left radial Blood Gas Patient Temperature 37.0 Arterial Blood Date Drawn [id number] Arterial Blood pH 7.354 7.350-7.450 Arterial Blood Partial Pressure CO2 41.1 32.0-45.0 mmHg Arterial Blood Partial Pressure O2 104.6 83.0-108.0 mmHg Arterial Blood HCO3 22.4 21.0-28.0 mmol/L Arterial Blood Oxygen Saturation 97.4 94.0-98.0 % Arterial Blood Base Excess -3.0 L -2.0-3.0 mmol/L Arterial Blood Oxyhemoglobin 95.4 94.0-98.0 % Arterial Blood Carboxyhemoglobin 1.5 0.5-1.5 % Arterial Blood Methemoglobin 0.6 0.0-1.5 % Ken Test Modified Blood Gas Total Hemoglobin 14.60 12.0-16.0 g/dL Blood Gas Set Respiration Rate 22.0 Blood Gas Modality Vent - ac FiO2 % 100.0 Blood Gas Tidal Volume 500.0 Blood Gas PEEP or CPAP 10.0 Test 06/09/24 04:19 06/09/24 02:44 Range/Units Urine Color Colorless Yellow Urine Clarity Clear Clear Urine pH 6.0 5.0-9.0 Urine Specific [place] 1.005 1.001-1.035 Urine Protein Negative Negative Urine Ketones Negative Negative Urine Blood Negative Negative /uL Urine Nitrite Negative Negative Urine Bilirubin Negative Negative Urine Urobilinogen Normal Negative mg/dL Urine Leukocyte Esterase Negative Negative /uL Urine RBC 1 0 - 4 /hpf Urine Microscopic WBC < 1 0-5 /HPF Urine Squamous Epithelial Cells Few <5 /hpf Urine Bacteria Few H None Seen /hpf Urine Mucus Few None Seen Urine Glucose Normal Normal mg/dL White Blood Count 10.0 4.4-10.8 10^3/uL Red Blood Count 5.23 H 4.0-5.20 10^6/uL Hemoglobin 13.7 12.2-16.2 g/dL Hematocrit 42.1 36.0-46.0 % Mean Corpuscular Volume 80.5 80.0-100.0 fL Mean Corpuscular Hemoglobin 26.2 L 28.0-32.0 pg Mean Corpuscular Hemoglobin Concent 32.6 32.0-36.0 g/dL Red Cell Distribution Width 15.5 H 11.8-14.3 % Platelet Count 263 140-450 10^3/uL Mean Platelet Volume 7.7 6.9-10.8 fL Neutrophils (%) (Auto) 62.2 37.0-80.0 % Lymphocytes (%) (Auto) 26.3 10.0-50.0 % Monocytes (%) (Auto) 6.9 0.0-12.0 % Eosinophils (%) (Auto) 3.5 0.0-7.0 % Basophils (%) (Auto) 1.1 0.0-2.0 % Neutrophils # (Auto) 6.2 1.6-8.6 10 ^3/uL Lymphocytes # (Auto) 2.6 0.4-5.4 10 ^3/uL Monocytes # (Auto) 0.7 0-1.3 10 ^3/uL Eosinophils # (Auto) 0.4 0-0.8 10 ^3/uL Basophils # (Auto) 0.1 0-0.2 10 ^3/uL Nucleated Red Blood Cells 0.1 % Sodium Level 141 136-145 mmol/L Potassium Level 3.8 3.5-5.1 mmol/L Chloride Level 110 H 98-107 mmol/L Carbon Dioxide Level 23 20-31 mmol/L Anion Gap 8 5-15 Blood Urea Nitrogen 11 9-23 mg/dL Creatinine 1.03 H 0.550-1.02 mg/dL Glomerular Filtration Rate Calc 61 >90 mL/min BUN/Creatinine Ratio 10.7 10.0-20.0 Serum Glucose 114 H 74-106 mg/dL Hemoglobin A1c 6.1 H <5.7 % A1C Lactic Acid Level 1.2 0.4-2.0 mmol/L Calcium Level 9.9 8.7-10.4 mg/dL Total Bilirubin 0.4 0.2-1.0 mg/dL Aspartate Amino Transferase (AST) 28 13-40 U/L Alanine Aminotransferase (ALT) 19 7-40 U/L Alkaline Phosphatase 144 H 46-116 U/L B-Type Natriuretic Peptide 20.54 0-100 pg/mL Total Protein 7.6 5.7-8.2 g/dL Albumin 4.4 3.2-4.8 g/dL Assessment angioedema obesity mild LV dysfunction allergic reaction Plan/Recommendation pt has seen me in clinic before RN will try to obtain medication or recent history to cause this pt may have had this before cotn supportive care steroids mild LV dysfunction, monitor for now avoid garth/arb Plan discussed with: Patient ARCEKAREN MD Jun 09, 2024 16:12
[2024-06-09] MEDS: ATORVASTATIN 20 MG TAB PO SCH (21:54)
[2024-06-10] VITALS (75 sets, daily range): BP systolic 101–158; BP diastolic 59–103; PULSE 60–105; RESP 14–28; TEMP 97.4–99.7; O2SAT 92–98
[2024-06-10 05:44] LABS: Basophils # (auto) 0 10 ^3/uL (0-0.2); Basophils % (auto) 0.1 % (0.0-2.0); Eosinophils # (auto) 0 10 ^3/uL (0-0.8); Lymphocytes # (auto) 0.8 10 ^3/uL (0.4-5.4); Monocytes # (auto) 0.5 10 ^3/uL (0-1.3)
[2024-06-10 05:46] LABS: Hematocrit 41.3 % (36.0-46.0); Hemoglobin 13.3 g/dL (12.2-16.2); Lymphocytes % (auto) 7.4 % (10.0-50.0); Mean Corpuscular Hgb Conc. 32.3 g/dL (32.0-36.0); Mean Corpuscular Volume 80.6 fL (80.0-100.0); Monocytes % (auto) 4.4 % (0.0-12.0); Neutrophils # (auto) 9.8 10 ^3/uL (1.6-8.6); Neutrophils % (auto) 88.1 % (37.0-80.0); Platelet Count (auto) 250 10^3/uL (140-450); Red Blood Cells 5.13 10^6/uL (4.0-5.20); Red Cell Distribution Width 16.5 % (11.8-14.3); White Blood Cell 11.2 10^3/uL (4.4-10.8)
[2024-06-10 06:00] LABS: Alanine Aminotransferase 18 U/L (7-40); Anion Gap 8 (5-15); Aspartate Aminotransferase 26 U/L (13-40); BUN/Creatinine Ratio 15.8 (10.0-20.0); Blood Urea Nitrogen 16 mg/dL (9-23); Calcium 9.8 mg/dL (8.7-10.4); Carbon Dioxide 22 mmol/L (20-31); Potassium 3.9 mmol/L (3.5-5.1); Sodium 139 mmol/L (136-145)
[2024-06-10 06:09] LABS: Alkaline Phosphatase 127 U/L (46-116); Bilirubin, Total 0.3 mg/dL (0.2-1.0); Chloride 109 mmol/L (98-107); Glucose 169 mg/dL (74-106)
--- NOTE | 2024-06-10 06:34 | DVH ---
EXAM: XR Chest, 1 View CLINICAL INDICATION: angioedema TECHNIQUE: Frontal view of the chest. COMPARISON: XY CHEST XRAY 1 VIEW on DOS: 06/09/24 FINDINGS: LUNGS AND PLEURAL SPACES: Bibasilar atelectasis or pneumonia. No pneumothorax. HEART: Unremarkable. No cardiomegaly. MEDIASTINUM: Unremarkable. Normal mediastinal contour. BONES/JOINTS: Unremarkable. No acute fracture. TUBES, LINES AND DEVICES: The endotracheal tube (ETT) is in satisfactory position. Enteric tube ti p in the stomach. OTHER FINDINGS: . . .. IMPRESSION: Bibasilar atelectasis or pneumonia.
[2024-06-10 06:46] LABS: Base Excess -2.4 mmol/L (-2.0-3.0)
[2024-06-10] MEDS: ASPirin 81 mg TAB PO SCH (08:58)
[2024-06-10] MEDS: PIPERACILLIN-TAZOB 3.375GM 100 ML IV ONE (11:49)
[2024-06-10] MEDS: methylPREDNISolone SOD SUCC 125 MG/2 ML VL IV SCH (11:49)
--- NOTE | 2024-06-10 14:40 | ECG ---
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
--- NOTE | 2024-06-10 14:51 | ECG ---
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
[2024-06-10] MEDS: PIPERACILLIN-TAZOB 3.375GM 100 ML IV SCH (16:39)
[2024-06-10] MEDS: fentaNYL Drip 2500mCg/250mlNS 250 ML IV SCH (17:45)
--- NOTE | 2024-06-10 17:52 | DVHPNRES ---
Progress Note Date Seen: Jun 10, 2024 Resident Creating Document: CHRIS JOSE RESIDENT Has the PT tested + for MRSA If YES, has PT been informed?: No Medical Necessity Reason Pt with a Central, PICC or Fol: No Subjective Review of Systems This is a 63-year-old female with past medical history of hypertension and morbid obesity grade 3, who presented to the ED with chief complaint of allergic reaction. Upon admission, the patient was complaining of mild shortness of breath, facial swelling, tongue swelling, throat swelling and wheezes. Patient was evaluated by the ED staff and decision to secure airway was taken to prevent airway collapse. Patient was intubated and placed on mechanical ventilator. Initial parameters were VT 500, RR 22, FiO2 55%, peep 10. Patient was started on methylprednisolone 60 mg b.i.d., sedation. Prophylactic dose of enoxaparin. Patient was admitted for further assessment and management. Patient seen and examined at bedside. Patient is currently sedated on mechanical ventilation on the following parameters VT 500, RR 22, FiO2 55%, peep 8. Initial ABG showed a pH of 7.37, pCO2 of 40, PaO2 of 72.6 and HC03 of 22.6 consistent with a normal a acid-base balance. On my examination there were bilateral clear lungs, no crackles or wheezes at this time. Patient was still having swelling of the tongue and face looks slightly edematous. We will continue the patient on IV steroids, IV antibiotics and re-evaluate daily for possible extubation. ROS unable to obtain due to patient's current status intubated. Objective vital signs Vital Sign Date Time Temp Pulse Resp B/P (MAP) Pulse Ox O2 Delivery O2 Flow Rate FiO2 06/10/24 17:00 97.6 68 22 106/66 (79) 94 97.6 06/10/24 16:20 55 06/10/24 15:46 Mechanical Ventilator+ 06/10/24 10:00 55.0 Total Intake and Output 06/09/24 06/09/24 06/10/24 14:59 22:59 06:59 Intake Total 398.530 ml 738.82 ml 683.16 ml Output Total 826 ml 350 ml Balance 398.530 ml -87.18 ml 333.16 ml medications Current Medications Medications Dose Ordered Sig/Maday Route Start Time Stop Time Status Last Admin Dose Admin Propofol 100 ml @ 3.558 mls/ hr Q24H IV 06/09/24 03:00 06/10/24 16:39 35.58 MLS/HR Midazolam HCl 50 ml @ 1 mls/hr Q24H IV 06/09/24 03:15 06/09/24 14:10 3 MLS/HR Sodium Chloride 1,000 ml @ 75 mls/hr [id number] IV 06/09/24 08:00 06/09/24 21:22 75 MLS/HR Ondansetron HCl 4 mg Q4HP PRN IV 06/09/24 08:00 Enoxaparin Sodium 40 mg DAILY SC 06/09/24 10:00 06/10/24 08:58 40 MG Hydralazine HCl 10 mg Q6HP PRN IV 06/09/24 08:00 Aspirin 81 mg DAILY PO 06/10/24 10:00 06/10/24 08:58 81 MG Atorvastatin Calcium 40 mg HS PO 06/09/24 22:00 06/09/24 21:54 40 MG Diphenhydramine HCl 25 mg Q6HP PRN IV 06/09/24 10:00 Pantoprazole Sodium 40 mg DAILY IV 06/09/24 10:00 06/10/24 08:54 40 MG Albuterol 2.5 mg Q4HPRN PRN NEB 06/09/24 10:00 Albuterol 2.5 mg Q6HR NEB 06/09/24 12:00 06/10/24 12:22 2.5 MG Ipratropium [place] 0.5 mg Q4HPRN PRN NEB 06/09/24 10:00 Ipratropium [place] 0.5 mg Q6HR NEB 06/09/24 12:00 06/10/24 12:22 0.5 MG Piperacillin Sod/ Tazobactam Sod 100 ml @ 25 mls/hr Q8HR IV 06/10/24 17:00 06/10/24 16:39 25 MLS/HR Methylprednisolone Sodium Succinate 40 mg DAILY IV 06/10/24 10:00 06/10/24 11:49 40 MG Examination Physical Examination General: Patient sedated and intubated on the following parameters VT 500, RR 22, FiO2 55, peep 8. HEENT: Normocephalic, atraumatic, moist mucous membranes Respiratory/pulmonary: Clear lungs bilaterally, no associated crackles or wheezes. Cardiovascular: Normal heart sounds S1 and S2 with no associated murmurs Abdomen: Abdomen nondistended, there is no pain to palpation in any of the abdominal quadrants, no palpable masses. Extremities: There is no peripheral edema present at the lower extremities. Peripheral Pulses: 3+ Radial (R). 3+ Radial (L). 3+ Dorsalis pedis (R). 3+ Dorsalis pedis(L) Skin: No rashes or pruritus, there is no sacral edema present at this time. Neurological: Sedated currently RASS -3 laboratory and microbiology Laboratory Tests 06/10/24 05:07 Test 06/10/24 05:07 Range/Units Serum Glucose 169 H 74-106 mg/dL Microbiology Date/Time Source Procedure Growth Status 06/09/24 03:13 Sputum Gram Stain - Final Resulted 06/09/24 03:13 Sputum Respiratory Culture - Preliminary Resulted Problem List/Assessment/Plan Problem List/Assessment/Plan Assessment/Plan Acute anaphylactic reaction, unkown source Acute angioedema Acute hypoxic respiratory failure likely due to above -patient was having facial swelling, tongue, throat swelling and decision was to intubate to protect airway -patient is currently intubated on the following mechanical ventilatory settings: VT 500, RR 22, FiO2 55%, peep 8 -monitor ABG -continue methylprednisolone 40 mg IV daily -sedated on propofol, Versed. 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% -echocardiogram showed LVEF of 45% with apical wall abnormalities and hypokinesis -EKG showed sinus rhythm with right bundle branch block and T-wave inversion in all leads -troponins were elevated NSTEMI type 2 likely due to above -trend troponins -cardiology on the case DI likely due to vasomotor nephropathy -creatinine was 1.03 -we will monitor kidney function closely -hold Nirav or arbs at this time Primary hypertension -blood pressure on normal range at this time -patient sedated and intubated, not needing vasopressor at this time Dyslipidemia -start atorvastatin 40 mg daily Morbid obesity Grade III -Lifestyle modification Goals of care discussed with nurse, family attempted to contact but no response at this time, FULL CODE Plan discussed with Dr. Marcial Plan discussed with: Other My Orders My Orders Orders - CHRIS JOSE Procedure Category Date Status Time Piperacillin-Tazob PHA 06/10/24 In Process 3.375gm (Zosyn 3.375g 17:00 Methylprednisolone PHA 06/10/24 In Process Sod Succ (Solu Medrol 10:00 Ventilator Orders RT 06/10/24 Transmitted 10:00 Date of Service: Jun 10, 2024 Billing Provider: LISSETTE MARCIAL MD Common Visit Codes: [id number] INP/OBS CARE(HIGH) CHRIS JOSE RESIDENT Jun 10, 2024 17:52 LISSETTE MARCIAL MD Jun 10, 2024 18:36
[2024-06-10] MEDS: FUROSEMIDE 20 MG/2 ML VIAL IV ONE (18:40)
[2024-06-11] VITALS (105 sets, daily range): BP systolic 86–173; BP diastolic 48–108; PULSE 62–109; RESP 10–30; TEMP 98–99.6; O2SAT 89–100
--- NOTE | 2024-06-11 04:42 | DVH ---
CHEST RADIOGRAPH Indication: respiratory failure Technique: Single frontal view of the chest was obtained Comparison: XY CHEST PORTABLE on DOS: 06/10/24, XY CHEST XRAY 1 VIEW on DOS: 06/09/24 FINDINGS: Lines and Tubes: The endotracheal tube terminates 4.5 cm above the ambar. The enteric tube courses b elow the left hemidiaphragm and the tip extends outside the field of view. Lungs: Bibasilar opacities noted. Pleura: No effusion. No pneumothorax. Cardiomediastinal contours: Unremarkable Bones: No acute osseous abnormality. IMPRESSION: 1. No significant interval change.
[2024-06-11 05:29] LABS: Chloride 107 mmol/L (98-107); Potassium 3.9 mmol/L (3.5-5.1); Sodium 142 mmol/L (136-145)
[2024-06-11 05:30] LABS: Anion Gap 9 (5-15); Calcium 9.7 mg/dL (8.7-10.4); Carbon Dioxide 26 mmol/L (20-31)
[2024-06-11 05:35] LABS: BUN/Creatinine Ratio 17.6 (10.0-20.0); Blood Urea Nitrogen 21 mg/dL (9-23)
[2024-06-11 05:43] LABS: Glucose 120 mg/dL (74-106)
[2024-06-11 06:05] LABS: Basophils # (auto) 0.1 10 ^3/uL (0-0.2); Basophils % (auto) 0.9 % (0.0-2.0); Eosinophils # (auto) 0 10 ^3/uL (0-0.8); Eosinophils % (auto) 0.1 % (0.0-7.0); Hematocrit 41.6 % (36.0-46.0); Hemoglobin 13.4 g/dL (12.2-16.2); Lymphocytes # (auto) 2.3 10 ^3/uL (0.4-5.4); Lymphocytes % (auto) 15.1 % (10.0-50.0); Mean Corpuscular Hgb Conc. 32.1 g/dL (32.0-36.0); Mean Corpuscular Volume 80.9 fL (80.0-100.0); Monocytes # (auto) 2.1 10 ^3/uL (0-1.3); Monocytes % (auto) 13.7 % (0.0-12.0); Neutrophils # (auto) 10.9 10 ^3/uL (1.6-8.6); Neutrophils % (auto) 70.2 % (37.0-80.0); Nucleated Red Blood Cells % 0.2 %; Platelet Count (auto) 239 10^3/uL (140-450); Red Blood Cells 5.14 10^6/uL (4.0-5.20); Red Cell Distribution Width 16.9 % (11.8-14.3); White Blood Cell 15.5 10^3/uL (4.4-10.8)
[2024-06-11 07:58] LABS: Base Excess -2.5 mmol/L (-2.0-3.0)
[2024-06-11] MEDS ORDERED: NIFEdipine ER 30 MG TAB PO SCH (08:00)
[2024-06-11] MEDS: amLODIPine BESYLATE 5 MG TAB PO SCH (08:40)
--- NOTE | 2024-06-11 10:07 | ECG ---
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
[2024-06-11 10:40] LABS: Base Excess -2.1 mmol/L (-2.0-3.0)
--- NOTE | 2024-06-11 11:33 | DVHPNRES ---
Progress Note Date Seen: Jun 11, 2024 Resident Creating Document: CHRIS JOSE RESIDENT Has the PT tested + for MRSA If YES, has PT been informed?: No Medical Necessity Reason Pt with a Central, PICC or Fol: No Subjective Review of Systems This is a 63-year-old female with past medical history of hypertension and morbid obesity grade 3, who presented to the ED with chief complaint of allergic reaction. Upon admission, the patient was complaining of mild shortness of breath, facial swelling, tongue swelling, throat swelling and wheezes. Patient was evaluated by the ED staff and decision to secure airway was taken to prevent airway collapse. Patient was intubated and placed on mechanical ventilator. Initial parameters were VT 500, RR 22, FiO2 55%, peep 10. Patient was started on methylprednisolone 60 mg b.i.d., sedation. Prophylactic dose of enoxaparin. Patient was admitted for further assessment and management. Patient seen and examined at bedside. Patient is sedated and intubated on the following mechanical ventilatory parameters: VT 500, if 20, FiO2 45%, peep 8. This morning, based on clinical status, ABG that was reviewed, we decided to decrease FiO2 from 55-45%, respiratory rate was decreased from 22-20 and PEEP was kept at 8. Upon my examination, bilateral lungs are grossly clear with some rhonchi bilateral but no crackles or wheezes. Bilateral lower extremities were not edematous this morning. Blood pressure was in the higher side for which we started the patient on amlodipine 10 mg daily and there is hydralazine IV p.r.n. we will keep the patient on IV Zosyn and methylprednisolone 40 mg IV daily. We will continue trying to titrate down PEEP and FiO2 to be able to do CPAP trial tomorrow a.m.. ROS unable to obtain due to patient's current status intubation Objective vital signs Vital Sign Date Time Temp Pulse Resp B/P (MAP) Pulse Ox O2 Delivery O2 Flow Rate FiO2 06/11/24 11:15 69 20 95 06/11/24 11:00 98.9 98.9 06/11/24 10:14 45 06/11/24 06:00 Mechanical Ventilator+ 06/10/24 10:00 55.0 Total Intake and Output 06/10/24 06/10/24 06/11/24 15:00 23:00 07:00 Intake Total 1008.64 ml 570.734 ml 336.030 ml Output Total 750 ml 1300 ml Balance 1008.64 ml -179.266 ml -963.970 ml medications Current Medications Medications Dose Ordered Sig/Maday Route Start Time Stop Time Status Last Admin Dose Admin Propofol 100 ml @ 3.558 mls/ hr Q24H IV 06/09/24 03:00 06/11/24 10:08 28.464 MLS/HR Midazolam HCl 50 ml @ 1 mls/hr Q24H IV 06/09/24 03:15 06/11/24 10:36 4 MLS/HR Ondansetron HCl 4 mg Q4HP PRN IV 06/09/24 08:00 Enoxaparin Sodium 40 mg DAILY SC 06/09/24 10:00 06/11/24 08:42 40 MG Hydralazine HCl 10 mg Q6HP PRN IV 06/09/24 08:00 Aspirin 81 mg DAILY PO 06/10/24 10:00 06/11/24 08:41 81 MG Atorvastatin Calcium 40 mg HS PO 06/09/24 22:00 06/10/24 22:24 40 MG Diphenhydramine HCl 25 mg Q6HP PRN IV 06/09/24 10:00 Pantoprazole Sodium 40 mg DAILY IV 06/09/24 10:00 06/11/24 08:40 40 MG Albuterol 2.5 mg Q4HPRN PRN NEB 06/09/24 10:00 Albuterol 2.5 mg Q6HR NEB 06/09/24 12:00 06/11/24 06:01 2.5 MG Ipratropium [place] 0.5 mg Q4HPRN PRN NEB 06/09/24 10:00 Ipratropium [place] 0.5 mg Q6HR NEB 06/09/24 12:00 06/11/24 06:01 0.5 MG Piperacillin Sod/ Tazobactam Sod 100 ml @ 25 mls/hr Q8HR IV 06/10/24 17:00 06/11/24 05:55 25 MLS/HR Methylprednisolone Sodium Succinate 40 mg DAILY IV 06/10/24 10:00 06/11/24 08:41 40 MG Fentanyl Citrate 250 ml @ 2.5 mls/hr Q24H IV 06/10/24 17:45 Amlodipine Besylate 10 mg DAILY PO 06/11/24 08:15 06/11/24 08:40 10 MG Examination Physical Examination General: Patient sedated and intubated on the following parameters VT 500, RR 20, FiO2 45, peep 8. HEENT: Normocephalic, atraumatic, moist mucous membranes Respiratory/pulmonary: Clear lungs bilaterally, mild rhonchis. no associated crackles or wheezes. Cardiovascular: Normal heart sounds S1 and S2 with no associated murmurs Abdomen: Abdomen nondistended, there is no pain to palpation in any of the abdominal quadrants, no palpable masses. Extremities: There is no peripheral edema present at the lower extremities. Peripheral Pulses: 3+ Radial (R). 3+ Radial (L). 3+ Dorsalis pedis (R). 3+ Dorsalis pedis(L) Skin: No rashes or pruritus, there is no sacral edema present at this time. Neurological: Sedated currently RASS -3 laboratory and microbiology Laboratory Tests 06/11/24 04:28 Test 06/11/24 04:28 Range/Units Serum Glucose 120 H 74-106 mg/dL Microbiology Date/Time Source Procedure Growth Status 06/09/24 03:13 Sputum Gram Stain - Final Resulted 06/09/24 03:13 Sputum Respiratory Culture - Preliminary Resulted Problem List/Assessment/Plan Problem List/Assessment/Plan Assessment/Plan Acute anaphylactic reaction, unkown source Acute angioedema Acute hypoxic respiratory failure likely due to above -patient was having facial swelling, tongue, throat swelling and decision was to intubate to protect airway -patient is currently intubated on the following mechanical ventilatory settings: VT 500, RR 22, FiO2 55%, peep 8 -monitor ABG -continue methylprednisolone 40 mg IV daily -sedated on propofol, Versed. 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% -echocardiogram showed LVEF of 45% with apical wall abnormalities and hypokinesis -EKG showed sinus rhythm with right bundle branch block and T-wave inversion in all leads -troponins were elevated NSTEMI type 2 likely due to above -trend troponins -cardiology on the case DI likely due to vasomotor nephropathy -creatinine was 1.03 -we will monitor kidney function closely -hold Nirav or arbs at this time Primary hypertension -blood pressure on normal range at this time -patient sedated and intubated, not needing vasopressor at this time Dyslipidemia -start atorvastatin 40 mg daily Morbid obesity Grade III -Lifestyle modification Goals of care discussed with nurse, family attempted to contact but no response at this time, FULL CODE Plan discussed with Dr. Marcial critical care time 90 mins Plan discussed with: Daughter, Other My Orders My Orders Orders - CHRIS JOSE Procedure Category Date Status Time Ventilator Orders RT 06/10/24 Transmitted 10:00 Fentanyl Drip PHA 06/10/24 In Process 2500mcg/250mlns 17:45 Apply Barrier Cream HAYDEN 06/10/24 In Process 10:48 Chest Portable XY 06/11/24 Resulted 04:00 Abg W/ Co-Ox RT 06/11/24 Logged 06:00 Ventilator Orders RT 06/11/24 Transmitted 07:59 Amlodipine Tablet PHA 06/11/24 In Process (Norvasc Tablet) 08:15 Abg W/ Co-Ox RT 06/11/24 Logged 10:00 Dietary Evaluation Review Comments: 1. Recommend Vital HP while on high-dose propofol; begin @ 10 ml/hr, advance by 10 ml Q4 or as tolerated to goal-rate of 50 ml/hr continuously 2. Provide minimal free water flushes for tube patency of 30 ml Q6 (120 ml total); adjust PRN 3. Monitor BMP/lytes and replete per protocol TF Provision: TF at goal to provide 1200 ml total volume, 1200 kcal (+562 via propofol = 1762 kcal), 105 gm pro, 0 gm fiber, 1103 ml H20 (meets 100% est. kcal needs, 100% est. pro needs) Expected Outcomes/Goals: Adequate nutrition, weight maintenance, improved hemodynamic stability. Date of Service: Jun 11, 2024 Billing Provider: LISSETTE MARCIAL MD Common Visit Codes: [id number] CARE 30-74 MIN, [id number] CARE-EACH +30MIN CHRIS JOSE RESIDENT Jun 11, 2024 11:33 LISSETTE MARCIAL MD Jun 11, 2024 15:28
[2024-06-11] MEDS: hydrALAZINE HCL 20 MG/ML VL IV PRN (17:39)
[2024-06-11] MEDS: FUROSEMIDE 20 MG/2 ML VIAL IV ONE (18:31)
[2024-06-11] MEDS: NOREPINEPHRINE 8 MG/250ML KIT 250 ML IV SCH (19:00)
--- NOTE | 2024-06-11 19:49 | DVH ---
CHEST RADIOGRAPH Indication: INCREASE RR EFFORT Technique: Single frontal view of the chest was obtained COMPARISON: XY CHEST PORTABLE on DOS: 06/11/24, XY CHEST PORTABLE on DOS: 06/10/24, XY CHEST XRAY 1 VIE W on DOS: 06/09/24 FINDINGS: Lines and Tubes: ETT in satisfactory position Lungs: Mild bibasilar subsegmental atelectasis/consolidation greater on the right side with improveme nt in the aeration at the lung bases compared to the prior chest x-ray from earlier the same day. No pulmonary edema. Pleura: No effusion. No pneumothorax. Cardiomediastinal contours: Unremarkable IMPRESSION: Mild bibasilar subsegmental atelectasis/consolidation greater on the right side with improvement in t he aeration at the lung bases compared to the prior chest x-ray from earlier the same day. No new abn ormality noted.
[2024-06-12] VITALS (104 sets, daily range): BP systolic 97–155; BP diastolic 57–97; PULSE 55–84; RESP 20–22; TEMP 97.6–99; O2SAT 90–100
[2024-06-12 03:54] LABS: Eosinophils # (auto) 0 10 ^3/uL (0-0.8); Eosinophils % (auto) 0.1 % (0.0-7.0); Hematocrit 41.6 % (36.0-46.0); Monocytes # (auto) 0.9 10 ^3/uL (0-1.3)
[2024-06-12 03:57] LABS: Basophils # (auto) 0.1 10 ^3/uL (0-0.2); Basophils % (auto) 0.5 % (0.0-2.0); Hemoglobin 13.2 g/dL (12.2-16.2); Lymphocytes # (auto) 1.3 10 ^3/uL (0.4-5.4); Lymphocytes % (auto) 11.9 % (10.0-50.0); Mean Corpuscular Hemoglobin 25.9 pg (28.0-32.0); Mean Corpuscular Hgb Conc. 31.6 g/dL (32.0-36.0); Monocytes % (auto) 7.8 % (0.0-12.0); Neutrophils # (auto) 8.9 10 ^3/uL (1.6-8.6); Neutrophils % (auto) 79.7 % (37.0-80.0); Platelet Count (auto) 264 10^3/uL (140-450); Red Blood Cells 5.07 10^6/uL (4.0-5.20); Red Cell Distribution Width 17.5 % (11.8-14.3); White Blood Cell 11.1 10^3/uL (4.4-10.8)
[2024-06-12 04:02] LABS: Potassium 4.1 mmol/L (3.5-5.1); Sodium 141 mmol/L (136-145)
[2024-06-12 04:03] LABS: Anion Gap 9 (5-15); Calcium 9.5 mg/dL (8.7-10.4); Carbon Dioxide 22 mmol/L (20-31)
[2024-06-12 04:08] LABS: BUN/Creatinine Ratio 18.2 (10.0-20.0); Blood Urea Nitrogen 20 mg/dL (9-23)
[2024-06-12 04:43] LABS: Chloride 110 mmol/L (98-107); Glucose 129 mg/dL (74-106)
--- NOTE | 2024-06-12 05:00 | DVH ---
CHEST RADIOGRAPH Indication: F/U on pulm parenchyma and measuring tube distances Technique: Single frontal view of the chest was obtained Comparison: XY CHEST PORTABLE on DOS: 06/11/24, XY CHEST PORTABLE on DOS: 06/11/24, XY CHEST PORTABLE o n DOS: 06/10/24 FINDINGS: Lines and Tubes: The endotracheal tube terminates 3.3 cm above the ambar. The enteric tube courses b elow the left hemidiaphragm and the tip extends outside the field of view. Lungs: Stable bibasilar opacities. Pleura: No effusion. No pneumothorax. Cardiomediastinal contours: Stable cardiomegaly. Bones: No acute osseous abnormality. IMPRESSION: 1. Stable position of the support lines and tubes. 2. Stable bibasilar opacities.
[2024-06-12 06:32] LABS: Base Excess -1.5 mmol/L (-2.0-3.0)
--- NOTE | 2024-06-12 08:42 | DVHPNRES ---
Progress Note Date Seen: Jun 12, 2024 Resident Creating Document: CHRIS JOSE RESIDENT Has the PT tested + for MRSA If YES, has PT been informed?: No Medical Necessity Reason Pt with a Central, PICC or Fol: No Subjective Review of Systems This is a 63-year-old female with past medical history of hypertension and morbid obesity grade 3, who presented to the ED with chief complaint of allergic reaction. Upon admission, the patient was complaining of mild shortness of breath, facial swelling, tongue swelling, throat swelling and wheezes. Patient was evaluated by the ED staff and decision to secure airway was taken to prevent airway collapse. Patient was intubated and placed on mechanical ventilator. Initial parameters were VT 500, RR 22, FiO2 55%, peep 10. Patient was started on methylprednisolone 60 mg b.i.d., sedation. Prophylactic dose of enoxaparin. Patient was admitted for further assessment and management. Patient seen and examined at bedside. Per night shift manager nurse, the patient was desaturating to the 86% reason why FiO2 was needed to be increased at that time. Upon my examination the patient was in the following mechanical ventilatory settings: VT 500, if 20, FiO2 40%, peep 6. Patient is currently saturating 92%. Initial plan was to do CPAP trial but since the patient was desaturating overnight requiring more FiO2. We went back up on sedation. We will monitor saturations closely and try to titrate down FiO2 and PEEP as tolerated. Blood pressure was slightly elevated this morning since the patient was on low sedation. We will continue monitoring the patient. ROS unable to obtain due to patient is currently sedated and intubated. Objective vital signs Vital Sign Date Time Temp Pulse Resp B/P (MAP) Pulse Ox O2 Delivery O2 Flow Rate FiO2 06/12/24 08:08 72 20 155/97 (116) 93 40 06/12/24 06:00 Mechanical Ventilator+ 06/12/24 04:00 99.0 99.0 06/11/24 10:00 45.0 Total Intake and Output 06/11/24 06/11/24 06/12/24 15:00 23:00 07:00 Intake Total 384.712 ml 462.278 ml 429.284 ml Output Total 1200 ml 1000 ml Balance 384.712 ml -737.722 ml -570.716 ml medications Current Medications Medications Dose Ordered Sig/Maday Route Start Time Stop Time Status Last Admin Dose Admin Propofol 100 ml @ 3.558 mls/ hr Q24H IV 06/09/24 03:00 06/12/24 05:45 14.232 MLS/HR Midazolam HCl 50 ml @ 1 mls/hr Q24H IV 06/09/24 03:15 06/12/24 03:43 12 MLS/HR Ondansetron HCl 4 mg Q4HP PRN IV 06/09/24 08:00 Enoxaparin Sodium 40 mg DAILY SC 06/09/24 10:00 06/11/24 08:42 40 MG Hydralazine HCl 10 mg Q6HP PRN IV 06/09/24 08:00 06/11/24 17:39 10 MG Aspirin 81 mg DAILY PO 06/10/24 10:00 06/11/24 08:41 81 MG Atorvastatin Calcium 40 mg HS PO 06/09/24 22:00 06/11/24 21:40 40 MG Diphenhydramine HCl 25 mg Q6HP PRN IV 06/09/24 10:00 Pantoprazole Sodium 40 mg DAILY IV 06/09/24 10:00 06/11/24 08:40 40 MG Albuterol 2.5 mg Q4HPRN PRN NEB 06/09/24 10:00 Albuterol 2.5 mg Q6HR NEB 06/09/24 12:00 06/12/24 06:02 2.5 MG Ipratropium [place] 0.5 mg Q4HPRN PRN NEB 06/09/24 10:00 Ipratropium [place] 0.5 mg Q6HR NEB 06/09/24 12:00 06/12/24 06:02 0.5 MG Piperacillin Sod/ Tazobactam Sod 100 ml @ 25 mls/hr Q8HR IV 06/10/24 17:00 06/12/24 05:47 25 MLS/HR Methylprednisolone Sodium Succinate 40 mg DAILY IV 06/10/24 10:00 06/11/24 08:41 40 MG Fentanyl Citrate 250 ml @ 2.5 mls/hr Q24H IV 06/10/24 17:45 06/11/24 18:15 2.5 MLS/HR Amlodipine Besylate 10 mg DAILY PO 06/11/24 08:15 06/11/24 08:40 10 MG Norepinephrine Bitartrate 250 ml @ 3.75 mls/hr Q24H IV 06/11/24 19:00 Acetylcysteine 100 mg Q6HR NEB 06/12/24 12:00 UNV Furosemide 40 mg DAILY IV 06/12/24 10:00 UNV Examination Physical Examination General: Patient sedated and intubated on the following parameters VT 500, RR 20, FiO2 40, peep 6. HEENT: Normocephalic, atraumatic, moist mucous membranes Respiratory/pulmonary: Clear lungs bilaterally, mild rhonchis. no associated crackles or wheezes. Cardiovascular: Normal heart sounds S1 and S2 with no associated murmurs Abdomen: Abdomen nondistended, there is no pain to palpation in any of the abdominal quadrants, no palpable masses. Extremities: There is no peripheral edema present at the lower extremities. Peripheral Pulses: 3+ Radial (R). 3+ Radial (L). 3+ Dorsalis pedis (R). 3+ Dorsalis pedis(L) Skin: No rashes or pruritus, there is no sacral edema present at this time. Neurological: Sedated currently RASS -3 laboratory and microbiology Laboratory Tests 06/12/24 03:20 Test 06/12/24 03:20 Range/Units Serum Glucose 129 H 74-106 mg/dL Microbiology Date/Time Source Procedure Growth Status 06/10/24 18:10 Nose MRSA Screen - Final Complete 06/09/24 03:13 Sputum Gram Stain - Final Resulted 06/09/24 03:13 Sputum Respiratory Culture - Preliminary Resulted Problem List/Assessment/Plan Problem List/Assessment/Plan Assessment/Plan Acute anaphylactic reaction, unkown source Acute angioedema Acute hypoxic respiratory failure likely due to above -patient was having facial swelling, tongue, throat swelling and decision was to intubate to protect airway -patient is currently intubated on the following mechanical ventilatory settings: VT 500, RR 22, FiO2 55%, peep 8 -monitor ABG -continue methylprednisolone 40 mg IV daily -sedated on propofol, Versed. 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% -echocardiogram showed LVEF of 45% with apical wall abnormalities and hypokinesis -EKG showed sinus rhythm with right bundle branch block and T-wave inversion in all leads -troponins were elevated -Furosemide 40mg IV QD NSTEMI type 2 likely due to above -trend troponins -cardiology on the case DI likely due to vasomotor nephropathy -creatinine was 1.03, Cr 1.10 -we will monitor kidney function closely -hold Nirav or arbs at this time Primary hypertension -blood pressure on normal range at this time -patient sedated and intubated, not needing vasopressor at this time Dyslipidemia -continue atorvastatin 40 mg daily Morbid obesity Grade III -Lifestyle modification Goals of care discussed with daughter by phone for >25min, FULL CODE Critical time spent >43min Plan discussed with Dr. Marcial Plan discussed with: Daughter My Orders My Orders Orders - CHRIS JOSE Procedure Category Date Status Time Abg W/ Co-Ox RT 06/11/24 Logged 10:00 Chest Xray 1 View XY 06/12/24 Resulted 04:00 Cpap Trial For Am ORDERS 06/11/24 Transmitted 16:03 Chest Portable XY 06/11/24 Resulted 18:03 Abg W/ Co-Ox RT 06/12/24 Logged 05:26 Acetylcysteine PHA 06/12/24 Logged Inhalation 10% 12:00 Furosemide Injection PHA 06/12/24 Logged (Lasix Injection) 10:00 Communication Order ORDERS 06/12/24 Transmitted 07:51 Dietary Evaluation Review Comments: 1. Recommend Vital HP while on high-dose propofol; begin @ 10 ml/hr, advance by 10 ml Q4 or as tolerated to goal-rate of 50 ml/hr continuously 2. Provide minimal free water flushes for tube patency of 30 ml Q6 (120 ml total); adjust PRN 3. Monitor BMP/lytes and replete per protocol TF Provision: TF at goal to provide 1200 ml total volume, 1200 kcal (+562 via propofol = 1762 kcal), 105 gm pro, 0 gm fiber, 1103 ml H20 (meets 100% est. kcal needs, 100% est. pro needs) Expected Outcomes/Goals: Adequate nutrition, weight maintenance, improved hemodynamic stability. Date of Service: Jun 12, 2024 Billing Provider: LISSETTE MARCIAL MD Common Visit Codes: [id number] CARE 30-74 MIN CHRIS JOSE RESIDENT Jun 12, 2024 08:42 LISSETTE MARCIAL MD Jun 12, 2024 13:36
[2024-06-12] MEDS: FUROSEMIDE 40 MG/4 ML VIAL IV SCH (10:48)
[2024-06-12] MEDS: ACETYLCYSTEINE 10 %(100MG/ML) SOL 4ML NEB SCH (12:46)
[2024-06-12 22:17] LABS: Base Excess -0.7 mmol/L (-2.0-3.0)
[2024-06-13] VITALS (112 sets, daily range): BP systolic 95–145; BP diastolic 53–89; PULSE 50–88; RESP 13–29; TEMP 97.3–98.3; O2SAT 86–100
[2024-06-13 04:22] LABS: Potassium 4.4 mmol/L (3.5-5.1); Sodium 143 mmol/L (136-145)
[2024-06-13 04:23] LABS: Anion Gap 9 (5-15); Calcium 9.4 mg/dL (8.7-10.4); Carbon Dioxide 25 mmol/L (20-31)
[2024-06-13 04:28] LABS: BUN/Creatinine Ratio 22.4 (10.0-20.0); Glucose 96 mg/dL (74-106)
[2024-06-13 04:55] LABS: Eosinophils # (auto) 0 10 ^3/uL (0-0.8)
[2024-06-13 04:59] LABS: Basophils # (auto) 0.1 10 ^3/uL (0-0.2); Eosinophils % (auto) 0.3 % (0.0-7.0); Hematocrit 43.3 % (36.0-46.0); Hemoglobin 13.8 g/dL (12.2-16.2); Lymphocytes # (auto) 2.4 10 ^3/uL (0.4-5.4); Lymphocytes % (auto) 19.1 % (10.0-50.0); Mean Corpuscular Hemoglobin 25.8 pg (28.0-32.0); Mean Corpuscular Hgb Conc. 31.7 g/dL (32.0-36.0); Mean Corpuscular Volume 81.2 fL (80.0-100.0); Monocytes # (auto) 1.7 10 ^3/uL (0-1.3); Monocytes % (auto) 13.1 % (0.0-12.0); Neutrophils # (auto) 8.5 10 ^3/uL (1.6-8.6); Neutrophils % (auto) 66.5 % (37.0-80.0); Nucleated Red Blood Cells % 0.1 %; Platelet Count (auto) 119 10^3/uL (140-450); Red Blood Cells 5.34 10^6/uL (4.0-5.20); Red Cell Distribution Width 17.2 % (11.8-14.3); White Blood Cell 12.8 10^3/uL (4.4-10.8)
[2024-06-13 05:06] LABS: Blood Urea Nitrogen 24 mg/dL (9-23); Chloride 109 mmol/L (98-107)
--- NOTE | 2024-06-13 06:04 | DVH ---
EXAM: XR Chest, 1 View CLINICAL INDICATION: eval pulm parenchyma and tubes distances TECHNIQUE: Frontal view of the chest. COMPARISON: XY CHEST XRAY 1 VIEW on DOS: 06/12/24, XY CHEST PORTABLE on DOS: 06/11/24, XY CHEST ABBEY BLE on DOS: 06/11/24, XY CHEST PORTABLE on DOS: 06/10/24, XY CHEST XRAY 1 VIEW on DOS: 06/09/24 FINDINGS: LUNGS AND PLEURAL SPACES: Bilateral pleural effusions. Pulmonary venous congestion. No consolidat ion. No pneumothorax. HEART: Unremarkable. No cardiomegaly. MEDIASTINUM: Unremarkable. Normal mediastinal contour. BONES/JOINTS: Unremarkable. No acute fracture. TUBES, LINES AND DEVICES: The endotracheal tube (ETT) is in satisfactory position. OTHER FINDINGS: . Enteric STEMI. . IMPRESSION: 1. Bilateral pleural effusions. 2. Pulmonary venous congestion.
[2024-06-13 06:40] LABS: Platelet Estimate Decrea
--- NOTE | 2024-06-13 07:51 | DVHPNRES ---
Progress Note Date Seen: Jun 13, 2024 Resident Creating Document: CHRIS JOSE RESIDENT Has the PT tested + for MRSA If YES, has PT been informed?: No Medical Necessity Reason Pt with a Central, PICC or Fol: No Subjective Review of Systems This is a 63-year-old female with past medical history of hypertension and morbid obesity grade 3, who presented to the ED with chief complaint of allergic reaction. Upon admission, the patient was complaining of mild shortness of breath, facial swelling, tongue swelling, throat swelling and wheezes. Patient was evaluated by the ED staff and decision to secure airway was taken to prevent airway collapse. Patient was intubated and placed on mechanical ventilator. Initial parameters were VT 500, RR 22, FiO2 55%, peep 10. Patient was started on methylprednisolone 60 mg b.i.d., sedation. Prophylactic dose of enoxaparin. Patient was admitted for further assessment and management. Patient seen and examined at bedside. Patient is currently sedated and intubated in the following mechanical ventilatory settings: VT 500, if 20, FiO2 50%, PEEP 6 saturating 97%. We started enteral nutrition, and we will cancel CPAP trial today since the patient is not yet meeting minimal ventilatory settings. We will try to titrate down FiO2 peep during the day and re-evaluate with subsequent ABGs. My examination, there is no peripheral edema on bilateral lower extremities and bilateral lung sounds grossly clear with minimal rhonchi bilateral. ROS unable to obtain due to patient's current status sedated and intubated. Objective vital signs Vital Sign Date Time Temp Pulse Resp B/P (MAP) Pulse Ox O2 Delivery O2 Flow Rate FiO2 06/13/24 06:00 50 06/13/24 06:00 51 06/13/24 06:00 20 113/70 (84) 06/13/24 06:00 95 Mechanical Ventilator+ 06/13/24 04:00 97.7 97.7 06/11/24 10:00 45.0 Total Intake and Output 06/12/24 06/12/24 06/13/24 15:00 23:00 07:00 Intake Total 442.0 ml 416.410 ml 217.610 ml Output Total 1750 ml 500 ml Balance 442.0 ml -1333.590 ml -282.390 ml medications Current Medications Medications Dose Ordered Sig/Maday Route Start Time Stop Time Status Last Admin Dose Admin Propofol 100 ml @ 3.558 mls/ hr Q24H IV 06/09/24 03:00 06/13/24 03:32 32.022 MLS/HR Midazolam HCl 50 ml @ 1 mls/hr Q24H IV 06/09/24 03:15 06/12/24 19:57 5 MLS/HR Ondansetron HCl 4 mg Q4HP PRN IV 06/09/24 08:00 Enoxaparin Sodium 40 mg DAILY SC 06/09/24 10:00 06/12/24 10:50 40 MG Hydralazine HCl 10 mg Q6HP PRN IV 06/09/24 08:00 06/11/24 17:39 10 MG Aspirin 81 mg DAILY PO 06/10/24 10:00 06/12/24 10:50 81 MG Atorvastatin Calcium 40 mg HS PO 06/09/24 22:00 06/12/24 22:30 40 MG Diphenhydramine HCl 25 mg Q6HP PRN IV 06/09/24 10:00 Pantoprazole Sodium 40 mg DAILY IV 06/09/24 10:00 06/12/24 10:49 40 MG Albuterol 2.5 mg Q4HPRN PRN NEB 06/09/24 10:00 Albuterol 2.5 mg Q6HR NEB 06/09/24 12:00 06/13/24 06:41 2.5 MG Ipratropium [place] 0.5 mg Q4HPRN PRN NEB 06/09/24 10:00 Ipratropium [place] 0.5 mg Q6HR NEB 06/09/24 12:00 06/13/24 06:40 0.5 MG Piperacillin Sod/ Tazobactam Sod 100 ml @ 25 mls/hr Q8HR IV 06/10/24 17:00 06/13/24 05:31 25 MLS/HR Methylprednisolone Sodium Succinate 40 mg DAILY IV 06/10/24 10:00 06/12/24 10:49 40 MG Fentanyl Citrate 250 ml @ 2.5 mls/hr Q24H IV 06/10/24 17:45 06/11/24 18:15 2.5 MLS/HR Amlodipine Besylate 10 mg DAILY PO 06/11/24 08:15 06/12/24 10:49 10 MG Norepinephrine Bitartrate 250 ml @ 3.75 mls/hr Q24H IV 06/11/24 19:00 Acetylcysteine 100 mg Q6HR NEB 06/12/24 12:00 06/13/24 06:40 100 MG Furosemide 40 mg DAILY IV 06/12/24 10:00 06/12/24 10:48 40 MG Enteral Nutritional Formula 1,000 ml 30ML/HR GT 06/12/24 13:15 Examination Physical Examination General: Patient sedated and intubated on the following parameters VT 500, RR 20, FiO2 50, peep 6. HEENT: Normocephalic, atraumatic, moist mucous membranes Respiratory/pulmonary: Clear lungs bilaterally, mild rhonchis. no associated crackles or wheezes. Cardiovascular: Normal heart sounds S1 and S2 with no associated murmurs Abdomen: Abdomen nondistended, there is no pain to palpation in any of the abdominal quadrants, no palpable masses. Extremities: There is no peripheral edema present at the lower extremities. Peripheral Pulses: 3+ Radial (R). 3+ Radial (L). 3+ Dorsalis pedis (R). 3+ Dorsalis pedis(L) Skin: No rashes or pruritus, there is no sacral edema present at this time. Neurological: Sedated currently RASS -3 laboratory and microbiology Laboratory Tests 06/13/24 03:37 Test 06/13/24 03:37 Range/Units Serum Glucose 96 74-106 mg/dL Microbiology Date/Time Source Procedure Growth Status 06/10/24 18:10 Nose MRSA Screen - Final Complete 06/09/24 03:13 Sputum Gram Stain - Final Complete 06/09/24 03:13 Sputum Respiratory Culture - Final Complete Problem List/Assessment/Plan Problem List/Assessment/Plan Assessment/Plan Acute anaphylactic reaction, unkown source Acute angioedema SIRS with endorgan damage DI Acute hypoxic respiratory failure likely due to above -patient was having facial swelling, tongue, throat swelling and decision was to intubate to protect airway -patient is currently intubated on the following mechanical ventilatory settings: VT 500, RR 22, FiO2 55%, peep 8 -monitor ABG -continue methylprednisolone 40 mg IV daily -sedated on propofol, Versed. 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% -echocardiogram showed LVEF of 45% with apical wall abnormalities and hypokinesis -EKG showed sinus rhythm with right bundle branch block and T-wave inversion in all leads -troponins were elevated -Furosemide 40mg IV QD NSTEMI type 2 likely due to above -trend troponins -cardiology on the case DI likely due to vasomotor nephropathy -creatinine was 1.03, Cr 1.10 -we will monitor kidney function closely -hold Nirav or arbs at this time Primary hypertension -blood pressure on normal range at this time -patient sedated and intubated, not needing vasopressor at this time Dyslipidemia -continue atorvastatin 40 mg daily Morbid obesity Grade III -Lifestyle modification Goals of care discussed with daughter by phone for >25min, FULL CODE Critical time spent >47min Plan discussed with Dr. Marcial Plan discussed with: Daughter My Orders My Orders Orders - CHRIS JOSE Procedure Category Date Status Time Communication Order ORDERS 06/12/24 Transmitted 07:[address] Place Ng ORDERS 06/12/24 Transmitted 13:05 Nutritional PHA 06/12/24 In Process Supplements (Glucerna 13:15 Chest Xray 1 View XY 06/13/24 Resulted 04:00 Abg W/ Co-Ox RT 06/13/24 Logged 04:00 Cpap Trial For Am ORDERS 06/12/24 Transmitted 15:22 Abg W/ Co-Ox RT 06/12/24 Logged 21:53 Dietary Evaluation Review Comments: 1. Recommend Vital HP while on high-dose propofol; begin @ 10 ml/hr, advance by 10 ml Q4 or as tolerated to goal-rate of 50 ml/hr continuously 2. Provide minimal free water flushes for tube patency of 30 ml Q6 (120 ml total); adjust PRN 3. Monitor BMP/lytes and replete per protocol TF Provision: TF at goal to provide 1200 ml total volume, 1200 kcal (+562 via propofol = 1762 kcal), 105 gm pro, 0 gm fiber, 1103 ml H20 (meets 100% est. kcal needs, 100% est. pro needs) Expected Outcomes/Goals: Adequate nutrition, weight maintenance, improved hemodynamic stability. Date of Service: Jun 13, 2024 Billing Provider: LISSETTE MARCIAL MD Common Visit Codes: [id number] CARE 30-74 MIN CHRIS JOSE RESIDENT Jun 13, 2024 07:50 LISSETTE MARCIAL MD Jun 13, 2024 19:16
[2024-06-13 08:50] LABS: Base Excess -1.2 mmol/L (-2.0-3.0)
[2024-06-13] MEDS: DOXYCYCLINE 100 MG TAB/CAP PO ONE (16:20)
[2024-06-13] MEDS: BUMETANIDE 1mg/4ml VIAL (0.25mg/ml) IV ONE (16:20)
--- NOTE | 2024-06-13 19:05 | DVH ---
CHEST RADIOGRAPH Indication: ASPIRATION Technique: Single frontal view of the chest was obtained Comparison: XY CHEST XRAY 1 VIEW on DOS: 06/13/24, XY CHEST XRAY 1 VIEW on DOS: 06/12/24, XY CHEST PORT ABLE on DOS: 06/11/24 FINDINGS: Lines and Tubes: Endotracheal tube 2.3 cm above the ambar. Enteric tube below the left diaphragm in the stomach. Lungs: No focal consolidation. Pleura: No effusion. No pneumothorax. Cardiomediastinal contours: Unremarkable Bones: No acute osseous abnormality. IMPRESSION: 1. Enteric tube in the stomach 2. Endotracheal tube 2.3 cm above the bifurcation 3. Bibasilar airspace disease and atelectasis
[2024-06-13] MEDS: DOXYCYCLINE 100 MG TAB/CAP PO SCH (22:04)
[2024-06-14] VITALS (118 sets, daily range): BP systolic 95–139; BP diastolic 55–83; PULSE 50–82; RESP 12–23; TEMP 97.5–98.8; O2SAT 90–100
[2024-06-14 03:55] LABS: Basophils # (auto) 0.1 10 ^3/uL (0-0.2); Hematocrit 38.1 % (36.0-46.0); Hemoglobin 12.4 g/dL (12.2-16.2); Mean Corpuscular Hgb Conc. 32.5 g/dL (32.0-36.0); Neutrophils # (auto) 7.5 10 ^3/uL (1.6-8.6); Red Cell Distribution Width 17.4 % (11.8-14.3); White Blood Cell 11.2 10^3/uL (4.4-10.8)
[2024-06-14 03:57] LABS: Basophils % (auto) 0.6 % (0.0-2.0); Eosinophils # (auto) 0.1 10 ^3/uL (0-0.8); Eosinophils % (auto) 0.7 % (0.0-7.0); Lymphocytes # (auto) 2.4 10 ^3/uL (0.4-5.4); Lymphocytes % (auto) 21.5 % (10.0-50.0); Mean Corpuscular Hemoglobin 26.6 pg (28.0-32.0); Mean Corpuscular Volume 81.8 fL (80.0-100.0); Monocytes # (auto) 1.1 10 ^3/uL (0-1.3); Monocytes % (auto) 9.8 % (0.0-12.0); Neutrophils % (auto) 67.4 % (37.0-80.0); Platelet Count (auto) 237 10^3/uL (140-450); Red Blood Cells 4.66 10^6/uL (4.0-5.20)
[2024-06-14 04:15] LABS: Anion Gap 11 (5-15); Calcium 9.7 mg/dL (8.7-10.4); Carbon Dioxide 23 mmol/L (20-31); Potassium 3.8 mmol/L (3.5-5.1); Sodium 143 mmol/L (136-145)
[2024-06-14 04:21] LABS: BUN/Creatinine Ratio 25.7 (10.0-20.0); Glucose 88 mg/dL (74-106)
[2024-06-14 04:32] LABS: Blood Urea Nitrogen 29 mg/dL (9-23); Chloride 109 mmol/L (98-107)
[2024-06-14] MEDS: BUMETANIDE 1mg/4ml VIAL (0.25mg/ml) IV SCH ×2 (05:31→17:20)
--- NOTE | 2024-06-14 06:05 | DVH ---
CHEST RADIOGRAPH Indication: reevaluate Technique: Single frontal view of the chest was obtained Comparison: XY CHEST XRAY 1 VIEW on DOS: 06/13/24 FINDINGS: Lines and Tubes: The endotracheal tube terminates 4.7 cm above the ambar. The enteric tube courses b elow the left hemidiaphragm and the tip extends outside the field of view. Lungs: Hazy bilateral opacities similar to prior study. Pleura: Bilateral pleural effusions similar to prior study. No pneumothorax. Cardiomediastinal contours: Stable cardiomegaly. Bones: No acute osseous abnormality. IMPRESSION: 1. Stable bilateral airspace disease similar to prior study. 2. Bilateral pleural effusions also not significantly changed.
[2024-06-14 07:02] LABS: Base Excess 0.4 mmol/L (-2.0-3.0)
--- NOTE | 2024-06-14 08:53 | ECG ---
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
--- NOTE | 2024-06-14 08:56 | ECG ---
[facility] Test Date: 2024-06-14 Test Time: 06:47:35 Pat Name: KEIKO REESE Department: ICU Room: [address] [place] [address] Gender: F Custodial Services Manager: MITESH : 1960 Requested By: AVEL FERRELL Order Number: [id number] Reading MD: Virgil Ventura Measurements Intervals [place] Rate: 54 P: 45 CT: 157 QRS: -22 QRSD: 166 T: 185 QT: 494 QTc: 469 Interpretive Statements Sinus rhythm Right bundle branch block LVH with IVCD and secondary repol abnrm Electronically Signed On 06-14-2024 13:29:53 PDT by Virgil Ventura Please click the below link to view image of tracing.
[2024-06-14] MEDS: LIDOCAINE 1% (LOCAL ANESTH.) PF 5ml SDV ID ONE (09:00)
[2024-06-14] MEDS: SODIUM CHLOR 0.9% PF (SALINE LOCK) 10ML VIAL/SYR IV SCH (10:36)
[2024-06-14 10:41] LABS: Partial Thromboplastin Time 23.9 SEC (24.5-34.5); Prothrombin Time 10.6 sec (9.3-11.8)
--- NOTE | 2024-06-14 10:48 | DVHPNRES ---
Progress Note Date Seen: Jun 14, 2024 Resident Creating Document: CHRIS JOSE RESIDENT Has the PT tested + for MRSA If YES, has PT been informed?: No Medical Necessity Reason Pt with a Central, PICC or Fol: No Subjective Review of Systems This is a 63-year-old female with past medical history of hypertension and morbid obesity grade 3, who presented to the ED with chief complaint of allergic reaction. Upon admission, the patient was complaining of mild shortness of breath, facial swelling, tongue swelling, throat swelling and wheezes. Patient was evaluated by the ED staff and decision to secure airway was taken to prevent airway collapse. Patient was intubated and placed on mechanical ventilator. Initial parameters were VT 500, RR 22, FiO2 55%, peep 10. Patient was started on methylprednisolone 60 mg b.i.d., sedation. Prophylactic dose of enoxaparin. Patient was admitted for further assessment and management. Patient seen and examined at bedside. Patient is currently sedated and intubated on the following mechanical ventilatory settings: VT 500, if 20, FiO2 40%, PEEP 6. We will attempt to place a PICC line today since central line was of difficult attempt due to either arteriosclerosis or anatomical variance. Chest x-ray today is still showing mild opacities in bilateral lung bases little bit more prominent on the right lung. We will continue IV Zosyn and IV doxycycline. We ordered a chest ultrasound to rule out pleural effusion, since costophrenic angles are slightly blunted. We will increase his Bumex to 2 mg b.i.d. ROS unable to obtain due to patient's current status sedated and intubated. Objective vital signs Vital Sign Date Time Temp Pulse Resp B/P (MAP) Pulse Ox O2 Delivery O2 Flow Rate FiO2 06/14/24 10:24 62 20 115/67 (83) 97 40 06/14/24 09:32 Mechanical Ventilator+ 06/14/24 08:00 97.8 97.8 Total Intake and Output 06/13/24 06/13/24 06/14/24 15:00 23:00 07:00 Intake Total 354.480 ml 701.712 ml 471.798 ml Output Total 1525 ml 650 ml Balance 354.480 ml -823.288 ml -178.202 ml medications Current Medications Medications Dose Ordered Sig/Maday Route Start Time Stop Time Status Last Admin Dose Admin Propofol 100 ml @ 3.558 mls/ hr Q24H IV 06/09/24 03:00 06/14/24 06:29 3.558 MLS/HR Midazolam HCl 50 ml @ 1 mls/hr Q24H IV 06/09/24 03:15 06/14/24 04:17 7 MLS/HR Ondansetron HCl 4 mg Q4HP PRN IV 06/09/24 08:00 Enoxaparin Sodium 40 mg DAILY SC 06/09/24 10:00 06/13/24 11:45 40 MG Hydralazine HCl 10 mg Q6HP PRN IV 06/09/24 08:00 06/11/24 17:39 10 MG Aspirin 81 mg DAILY PO 06/10/24 10:00 06/13/24 11:46 81 MG Atorvastatin Calcium 40 mg HS PO 06/09/24 22:00 06/13/24 22:04 40 MG Pantoprazole Sodium 40 mg DAILY IV 06/09/24 10:00 06/13/24 09:42 40 MG Albuterol 2.5 mg Q6HR NEB 06/09/24 12:00 06/14/24 06:43 2.5 MG Ipratropium [place] 0.5 mg Q6HR NEB 06/09/24 12:00 06/14/24 06:43 0.5 MG Piperacillin Sod/ Tazobactam Sod 100 ml @ 25 mls/hr Q8HR IV 06/10/24 17:00 06/14/24 05:31 25 MLS/HR Methylprednisolone Sodium Succinate 40 mg DAILY IV 06/10/24 10:00 06/13/24 09:43 40 MG Fentanyl Citrate 250 ml @ 2.5 mls/hr Q24H IV 06/10/24 17:45 06/14/24 05:37 12.5 MLS/HR Amlodipine Besylate 10 mg DAILY PO 06/11/24 08:15 06/13/24 09:43 10 MG Norepinephrine Bitartrate 250 ml @ 3.75 mls/hr Q24H IV 06/11/24 19:00 Acetylcysteine 100 mg Q6HR NEB 06/12/24 12:00 06/14/24 06:43 100 MG Enteral Nutritional Formula 1,000 ml 30ML/HR GT 06/12/24 13:15 Doxycycline Monohydrate 100 mg Q12HR PO 06/13/24 22:00 06/13/24 22:04 100 MG Bumetanide 2 mg BIDD IV 06/14/24 18:00 Sodium Chloride 10 ml QSHIFT@10,22 IV 06/14/24 10:00 Examination Physical Examination General: Patient sedated and intubated on the following parameters VT 500, RR 20, FiO2 50, peep 6. HEENT: Normocephalic, atraumatic, moist mucous membranes Respiratory/pulmonary: Clear lungs bilaterally, mild rhonchis. no associated crackles or wheezes. Cardiovascular: Normal heart sounds S1 and S2 with no associated murmurs Abdomen: Abdomen nondistended, there is no pain to palpation in any of the abdominal quadrants, no palpable masses. Extremities: There is no peripheral edema present at the lower extremities. Peripheral Pulses: 3+ Radial (R). 3+ Radial (L). 3+ Dorsalis pedis (R). 3+ Dorsalis pedis(L) Skin: No rashes or pruritus, there is no sacral edema present at this time. Neurological: Sedated currently RASS -3 laboratory and microbiology Laboratory Tests 06/14/24 03:18 Test 06/14/24 03:18 Range/Units Serum Glucose 88 74-106 mg/dL Microbiology Date/Time Source Procedure Growth Status 06/10/24 18:10 Nose MRSA Screen - Final Complete 06/09/24 03:13 Sputum Gram Stain - Final Complete 06/09/24 03:13 Sputum Respiratory Culture - Final Complete Problem List/Assessment/Plan Problem List/Assessment/Plan Assessment/Plan Acute anaphylactic reaction, unkown source Acute angioedema SIRS with endorgan damage DI Acute hypoxic respiratory failure likely due to above -patient was having facial swelling, tongue, throat swelling and decision was to intubate to protect airway -patient is currently intubated on the following mechanical ventilatory settings: VT 500, RR 20, FiO2 40%, peep 6 -monitor ABG -continue methylprednisolone 40 mg IV daily -sedated on propofol, Versed. 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% -echocardiogram showed LVEF of 45% with apical wall abnormalities and hypokinesis -EKG showed sinus rhythm with right bundle branch block and T-wave inversion in all leads -troponins were elevated -Stop Furosemide -Increase bumex to 2 mg BID NSTEMI type 2 likely due to above -trend troponins -cardiology on the case DI likely due to vasomotor nephropathy -creatinine was 1.03, Cr 1.13 -we will monitor kidney function closely -hold Nirav or arbs at this time Primary hypertension -blood pressure on normal range at this time -patient sedated and intubated, not needing vasopressor at this time Dyslipidemia -continue atorvastatin 40 mg daily Morbid obesity Grade III -Lifestyle modification Will place PICC line. Goals of care discussed with daughter by phone for >25min, FULL CODE Critical time spent >41min Plan discussed with Dr. Marcial Plan discussed with: Daughter My Orders My Orders Orders - CHRIS JOSE RESIDENT Procedure Category Date Status Time Chest Xray 1 View XY 06/14/24 Resulted 04:00 Abg W/ Co-Ox RT 06/14/24 Logged 04:00 * Picc Line Consult CONS 06/13/24 Transmitted 17:56 Bumetanide Injection PHA 06/14/24 In Process (Bumex Injection) 18:00 Us Guided Vascular US 06/14/24 Taken Access 08:50 Nursing Protocol Picc HAYDEN 06/14/24 In Process 08:50 Change Dressing Prn HAYDEN 06/14/24 In Process 08:50 PICC BD 06/14/24 Transmitted 08:50 Sodium Chloride Lock PHA 06/14/24 In Process (Saline Lock Ns) 10:00 Do Not Use Picc For [place]AYDEN 06/14/24 In Process Blood Cult 08:50 May Draw Blood From H[place]DEN 06/14/24 In Process Picc 08:50 Ok To Use Picc [place]DEN 06/14/24 In Process 08:50 Change Picc Dressing HAYDEN 06/14/24 In Process Q7 Days 08:50 Dietary Evaluation Review Comments: 1. Recommend Vital HP while on high-dose propofol; begin @ 10 ml/hr, advance by 10 ml Q4 or as tolerated to goal-rate of 50 ml/hr continuously 2. Provide minimal free water flushes for tube patency of 30 ml Q6 (120 ml total); adjust PRN 3. Monitor BMP/lytes and replete per protocol TF Provision: TF at goal to provide 1200 ml total volume, 1200 kcal (+562 via propofol = 1762 kcal), 105 gm pro, 0 gm fiber, 1103 ml H20 (meets 100% est. kcal needs, 100% est. pro needs) Expected Outcomes/Goals: Adequate nutrition, weight maintenance, improved hemodynamic stability. Date of Service: Jun 14, 2024 Billing Provider: LISSETTE MARCIAL MD Common Visit Codes: [id number] CARE 30-74 MIN CHRIS JOSE RESIDENT Jun 14, 2024 10:48 LISSETTE MARCIAL MD Jun 14, 2024 14:16
--- NOTE | 2024-06-14 12:11 | DVH ---
Bilateral Chest Sonogram Date: 06/14/2024 10:58 AM Clinical history: poss pleural eff Findings: Limited sonographic evaluation of the right and left chest was performed to localize and ada fluid f or thoracentesis. No fluid noted IMPRESSION: No fluid noted END IMPRESSION:
--- NOTE | 2024-06-14 16:53 | DVH ---
Procedure: CT CHEST WITHOUT CONTRAST Reason for study/Clinical History: R/O asp pna Comparison Study: None available at time of dictation. Exam Date: 06/14/2024 03:49 PM TECHNIQUE: Multidetector CT of the chest was performed from the lung apices to the upper abdomen with out the use of intravenous contract. Axial, coronal and sagittal multiplanar reformats were performed . Radiation Dose Information: CT Dose: CTDI volume is 30.75 mGy. Dose-length product is 802.15 mGy*cm The dose indicators for CT are the volume Computed Tomography (CT) Dose Index (CTDIvol) and the Dose Length Product (DLP), and are measured in units of mGy and mGy-cm, respectively. These indicators are not patient dose, but values generated from the CT scanner acquisition factors. The report includes radiation exposure data for exposures received during this examination. FINDINGS: Lower neck: Normal thyroid. Endotracheal tube and enteric tube in place. PICC line from right arm in place in the superior vena cava. Lungs: Bilateral perihilar peribronchial thickening with extension into the lower lobes bilaterally a nd bibasilar areas of atelectasis. Findings could be secondary to aspiration. Heart/Vascular Structures: Normal heart size. No pericardial effusion. Lymph Nodes: No adenopathy Pleura: No pleural effusion or significant pneumothorax. Musculoskeletal: No acute osseous abnormality. Soft tissues: Normal. Upper abdomen: Limited portions of the upper abdomen are unremarkable. IMPRESSION: 1. Bilateral perihilar peribronchial thickening and bibasilar areas of atelectasis may be consistent with aspiration. 2. Endotracheal tube and enteric tubes in place 3. PICC line from right arm in the superior vena cava above the right atrium Radiation optimization: All CT scans at this facility use at least one of these dose optimization ciara hniques: automated exposure control mA and/or kV adjustment per patient size (includes targeted exam s where dose is matched to clinical indication) or iterative reconstruction.
[2024-06-15] VITALS (110 sets, daily range): BP systolic 106–156; BP diastolic 63–100; PULSE 53–95; RESP 12–22; TEMP 98.1–98.5; O2SAT 89–99
[2024-06-15 04:06] LABS: Basophils # (auto) 0.1 10 ^3/uL (0-0.2); Basophils % (auto) 0.9 % (0.0-2.0); Eosinophils # (auto) 0.1 10 ^3/uL (0-0.8); Eosinophils % (auto) 0.5 % (0.0-7.0); Hematocrit 38.4 % (36.0-46.0); Hemoglobin 12.3 g/dL (12.2-16.2); Lymphocytes # (auto) 2.5 10 ^3/uL (0.4-5.4); Lymphocytes % (auto) 22.1 % (10.0-50.0); Mean Corpuscular Volume 81.2 fL (80.0-100.0); Monocytes # (auto) 0.9 10 ^3/uL (0-1.3); Monocytes % (auto) 8.4 % (0.0-12.0); Neutrophils # (auto) 7.7 10 ^3/uL (1.6-8.6); Neutrophils % (auto) 68.1 % (37.0-80.0); Nucleated Red Blood Cells % 0.1 %; Platelet Count (auto) 245 10^3/uL (140-450); Red Blood Cells 4.73 10^6/uL (4.0-5.20); White Blood Cell 11.2 10^3/uL (4.4-10.8)
[2024-06-15 04:15] LABS: Anion Gap 9 (5-15); Carbon Dioxide 27 mmol/L (20-31); Potassium 3.8 mmol/L (3.5-5.1)
[2024-06-15 04:16] LABS: Calcium 9.9 mg/dL (8.7-10.4)
[2024-06-15 04:21] LABS: BUN/Creatinine Ratio 35.5 (10.0-20.0); Glucose 89 mg/dL (74-106)
[2024-06-15 04:29] LABS: Blood Urea Nitrogen 38 mg/dL (9-23); Chloride 111 mmol/L (98-107); Sodium 147 mmol/L (136-145)
--- NOTE | 2024-06-15 05:50 | DVH ---
CHEST RADIOGRAPH Indication: reeval Technique: Single frontal view of the chest was obtained Comparison: XY CHEST XRAY 1 VIEW on DOS: 06/14/24, XY CHEST XRAY 1 VIEW on DOS: 06/13/24, XY CHEST XRAY 1 VIEW on DOS: 06/13/24 IMPRESSION: There is cardiomegaly. Right PICC line tip in the region of the cavoatrial junction. Enteric tube t ip beyond the inferior level of the examination. Endotracheal tube tip approximately 2 cm from the ca jade. Obscuration of the left hemidiaphragm May relate to effusion and/or atelectasis, consolidation. No pneumothorax
[2024-06-15 06:42] LABS: Base Excess 3.5 mmol/L (-2.0-3.0)
--- NOTE | 2024-06-15 12:24 | DVHPN2 ---
Subjective The patient seen and examined at bedside. Remained intubated. FiO2 is 30%. Reviewed: Care Plan, H&P, Labs, Medications, Previous Orders, Radiology Changes from previous H/P or p: No Changes Objective Vitals Vital Signs Date Time Temp Pulse Resp B/P (MAP) Pulse Ox O2 Delivery O2 Flow Rate FiO2 06/15/24 12:15 79 20 149/84 (105) 89 06/15/24 12:00 Mechanical Ventilator+ 30 30 06/15/24 07:30 98.1 98.1 Intake/Output Intake and Output 06/15/24 07:00 Intake Total 1182.5 ml Output Total 2500 ml Balance -1317.5 ml Intake Oral 90 ml IV Total 726.5 ml Tube Feeding 366 ml Output Urine Total 2500 ml General Appearance: Other (Intubated, on vent, unable to exam) HEENT: Atraumatic, Mucous membr. moist/pink Neck: Supple Lungs: Clear to auscultation, Normal air movement Cardiovascular: Regular rate, Normal S1, Normal S2, No murmurs, Gallops, Rubs Abdomen: Normal bowel sounds, Soft, No tenderness Neuro: Cranial nerves 3-12 NL Psych/Mental Status: Mental status NL Medications Current Medications Medications Dose Ordered Sig/Maday Route Start Time Stop Time Status Last Admin Dose Admin Propofol 100 ml @ 3.558 mls/ hr Q24H IV 06/09/24 03:00 06/14/24 06:29 3.558 MLS/HR Midazolam HCl 50 ml @ 1 mls/hr Q24H IV 06/09/24 03:15 06/15/24 06:00 8 MLS/HR Ondansetron HCl 4 mg Q4HP PRN IV 06/09/24 08:00 Enoxaparin Sodium 40 mg DAILY SC 06/09/24 10:00 06/15/24 08:07 40 MG Hydralazine HCl 10 mg Q6HP PRN IV 06/09/24 08:00 06/11/24 17:39 10 MG Aspirin 81 mg DAILY PO 06/10/24 10:00 06/15/24 08:08 81 MG Atorvastatin Calcium 40 mg HS PO 06/09/24 22:00 06/14/24 21:40 40 MG Pantoprazole Sodium 40 mg DAILY IV 06/09/24 10:00 06/15/24 08:07 40 MG Albuterol 2.5 mg Q6HR NEB 06/09/24 12:00 06/15/24 11:42 2.5 MG Ipratropium [place] 0.5 mg Q6HR NEB 06/09/24 12:00 06/15/24 11:42 0.5 MG Piperacillin Sod/ Tazobactam Sod 100 ml @ 25 mls/hr Q8HR IV 06/10/24 17:00 06/15/24 06:00 25 MLS/HR Methylprednisolone Sodium Succinate 40 mg DAILY IV 06/10/24 10:00 06/15/24 08:07 40 MG Fentanyl Citrate 250 ml @ 2.5 mls/hr Q24H IV 06/10/24 17:45 06/14/24 21:41 15 MLS/HR Amlodipine Besylate 10 mg DAILY PO 06/11/24 08:15 06/15/24 08:08 10 MG Norepinephrine Bitartrate 250 ml @ 3.75 mls/hr Q24H IV 06/11/24 19:00 Acetylcysteine 100 mg Q6HR NEB 06/12/24 12:00 06/15/24 11:42 100 MG Enteral Nutritional Formula 1,000 ml 30ML/HR GT 06/12/24 13:15 Doxycycline Monohydrate 100 mg Q12HR PO 06/13/24 22:00 06/15/24 08:07 100 MG Bumetanide 2 mg BIDD IV 06/14/24 18:00 06/15/24 05:59 2 MG Sodium Chloride 10 ml QSHIFT@10,22 IV 06/14/24 10:00 06/15/24 08:07 10 ML Laboratory Results Laboratory Tests 06/15/24 03:13 Chemistry Test 06/15/24 03:13 Calcium Level 9.9 mg/dL (8.7-10.4) Urinalysis Test 06/09/24 04:19 Urine Color Colorless (Yellow) Urine Clarity Clear (Clear) Urine pH 6.0 (5.0-9.0) Urine Specific [place] 1.005 (1.001-1.035) Urine Protein Negative (Negative) Urine Ketones Negative (Negative) Urine Blood Negative /uL (Negative) Urine Nitrite Negative (Negative) Urine Bilirubin Negative (Negative) Urine Urobilinogen Normal mg/dL (Negative) Urine Leukocyte Esterase Negative /uL (Negative) Urine RBC 1 /hpf (0 - 4) Urine Microscopic WBC < 1 /HPF (0-5) Urine Squamous Epithelial Cells Few /hpf (<5) Urine Bacteria Few /hpf (None Seen) H Urine Mucus Few (None Seen) Urine Glucose Normal mg/dL (Normal) Blood Gas Results Test 06/15/24 06:34 Arterial Blood pH 7.472 (7.350-7.450) FiO2 % 40.0 Microbiology Microbiology Date/Time Source Procedure Growth Status 06/13/24 21:48 Sputum Gram Stain - Final Resulted 06/13/24 21:48 Sputum Respiratory Culture - Preliminary Resulted 06/10/24 18:10 Nose MRSA Screen - Final Complete Labs and/or images reviewed: Labs reviewed by me Assessment/Plan Assessment/Plan Acute anaphylactic reaction, unkown source Acute angioedema SIRS with endorgan damage DI Acute hypoxic respiratory failure likely due to above -patient was having facial swelling, tongue, throat swelling and decision was to intubate to protect airway -patient is currently intubated on the following mechanical ventilatory settings: VT 500, RR 20, FiO2 40%, peep 6 -monitor ABG -continue methylprednisolone 40 mg IV daily -sedated on propofol, Versed. 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% -echocardiogram showed LVEF of 45% with apical wall abnormalities and hypokinesis -EKG showed sinus rhythm with right bundle branch block and T-wave inversion in all leads -troponins were elevated -Stop Furosemide -Increase bumex to 2 mg BID NSTEMI type 2 likely due to above -trend troponins -cardiology on the case DI likely due to vasomotor nephropathy -creatinine was 1.03, Cr 1.13 -we will monitor kidney function closely -hold Nirav or arbs at this time Primary hypertension -blood pressure on normal range at this time -patient sedated and intubated, not needing vasopressor at this time Dyslipidemia -continue atorvastatin 40 mg daily Morbid obesity Grade III -Lifestyle modification Will place PICC line. CPAP trial ABG Hopefully can extubate soon This medical document was created using an electronic medical record system with [employer] direct computerized dictation system. Although this document has been carefully reviewed, there may still be some phonetic and typographical errors. These areas are purely typographical due to imperfections of the software programs, and do not reflect any compromise in the patient's medical care. Plan discussed with: Other (RN) Date of Service: Jun 15, 2024 Billing Provider: RENEE HOUSER MD Common Visit Codes: [id number] INP/OBS CARE(HIGH) RENEE HOUSER MD Jun 15, 2024 12:24
--- NOTE | 2024-06-15 13:01 | DVHPN2 ---
Objective Vitals Vital Signs Date Time Temp Pulse Resp B/P (MAP) Pulse Ox O2 Delivery O2 Flow Rate FiO2 06/15/24 12:15 79 20 149/84 (105) 89 06/15/24 12:00 Mechanical Ventilator+ 30 30 06/15/24 07:30 98.1 98.1 Intake/Output Intake and Output 06/15/24 07:00 Intake Total 1182.5 ml Output Total 2500 ml Balance -1317.5 ml Intake Oral 90 ml IV Total 726.5 ml Tube Feeding 366 ml Output Urine Total 2500 ml Medications Current Medications Medications Dose Ordered Sig/Maday Route Start Time Stop Time Status Last Admin Dose Admin Propofol 100 ml @ 3.558 mls/ hr Q24H IV 06/09/24 03:00 06/14/24 06:29 3.558 MLS/HR Midazolam HCl 50 ml @ 1 mls/hr Q24H IV 06/09/24 03:15 06/15/24 12:28 6 MLS/HR Ondansetron HCl 4 mg Q4HP PRN IV 06/09/24 08:00 Enoxaparin Sodium 40 mg DAILY SC 06/09/24 10:00 06/15/24 08:07 40 MG Hydralazine HCl 10 mg Q6HP PRN IV 06/09/24 08:00 06/11/24 17:39 10 MG Aspirin 81 mg DAILY PO 06/10/24 10:00 06/15/24 08:08 81 MG Atorvastatin Calcium 40 mg HS PO 06/09/24 22:00 06/14/24 21:40 40 MG Pantoprazole Sodium 40 mg DAILY IV 06/09/24 10:00 06/15/24 08:07 40 MG Albuterol 2.5 mg Q6HR NEB 06/09/24 12:00 06/15/24 11:42 2.5 MG Ipratropium [place] 0.5 mg Q6HR NEB 06/09/24 12:00 06/15/24 11:42 0.5 MG Piperacillin Sod/ Tazobactam Sod 100 ml @ 25 mls/hr Q8HR IV 06/10/24 17:00 06/15/24 12:28 25 MLS/HR Methylprednisolone Sodium Succinate 40 mg DAILY IV 06/10/24 10:00 06/15/24 08:07 40 MG Fentanyl Citrate 250 ml @ 2.5 mls/hr Q24H IV 06/10/24 17:45 06/14/24 21:41 15 MLS/HR Amlodipine Besylate 10 mg DAILY PO 06/11/24 08:15 06/15/24 08:08 10 MG Norepinephrine Bitartrate 250 ml @ 3.75 mls/hr Q24H IV 06/11/24 19:00 Acetylcysteine 100 mg Q6HR NEB 06/12/24 12:00 06/15/24 11:42 100 MG Enteral Nutritional Formula 1,000 ml 30ML/HR GT 06/12/24 13:15 Doxycycline Monohydrate 100 mg Q12HR PO 06/13/24 22:00 06/15/24 08:07 100 MG Bumetanide 2 mg BIDD IV 06/14/24 18:00 06/15/24 05:59 2 MG Sodium Chloride 10 ml QSHIFT@10,22 IV 06/14/24 10:00 06/15/24 08:07 10 ML Laboratory Results Laboratory Tests 06/15/24 03:13 Chemistry Test 06/15/24 03:13 Calcium Level 9.9 mg/dL (8.7-10.4) Urinalysis Test 06/09/24 04:19 Urine Color Colorless (Yellow) Urine Clarity Clear (Clear) Urine pH 6.0 (5.0-9.0) Urine Specific [place] 1.005 (1.001-1.035) Urine Protein Negative (Negative) Urine Ketones Negative (Negative) Urine Blood Negative /uL (Negative) Urine Nitrite Negative (Negative) Urine Bilirubin Negative (Negative) Urine Urobilinogen Normal mg/dL (Negative) Urine Leukocyte Esterase Negative /uL (Negative) Urine RBC 1 /hpf (0 - 4) Urine Microscopic WBC < 1 /HPF (0-5) Urine Squamous Epithelial Cells Few /hpf (<5) Urine Bacteria Few /hpf (None Seen) H Urine Mucus Few (None Seen) Urine Glucose Normal mg/dL (Normal) Blood Gas Results Test 06/15/24 06:34 Arterial Blood pH 7.472 (7.350-7.450) FiO2 % 40.0 Microbiology Microbiology Date/Time Source Procedure Growth Status 06/13/24 21:48 Sputum Gram Stain - Final Resulted 06/13/24 21:48 Sputum Respiratory Culture - Preliminary Resulted 06/10/24 18:10 Nose MRSA Screen - Final Complete HOUSER,RENEE O MD Jun 15, 2024 13:01
--- NOTE | 2024-06-15 23:23 | DVHINCON2 ---
Date of service: Jun 15, [address] Lea Reason for Consultation Acute hypoxic respiratory failure, on mechanical ventilator History of Present Illness A 63-year-old woman with past medical history of hypertension and morbid obesity who presented to the ED on 06/09/24 with a chief complaint of allergic reaction. Medical records obtained from nursing staff; apparently pt began with symptoms of facial swelling, tongue swelling, throat swelling, shortness of breath, and wheezing starting on the night prior to presentation. Patient was intubated and placed on mechanical ventilator due to severe allergic reaction with angioedema. Patient was admitted for further care and pulmonary consultation is requested for evaluation and management due to the above findings. Review of Systems: 14-point review of systems negative unless otherwise noted above. Past Medical History: Hypertension and morbid obesity Past Surgical History: None Medications: Reviewed. Allergies: No known drug allergies. Family History: Heart disease. Social History: Nonsmoker. No alcohol or illicit drug use. Family History: Cardiovascular disease G8 MOTHER Allergies: Coded Allergies: NO KNOWN ALLERGIES (Unverified , 06/09/24) Home Meds Reported Medications Lisinopril (Lisinopril) 20 Mg Tab, 1 TAB PO BID 06/09/24 Atorvastatin Calcium (ATORVASTATIN CALCIUM) 20 Mg Tab, 1 TAB PO DAILY 06/09/24 Vital Signs Vital Signs Date Time Temp Pulse Resp B/P (MAP) Pulse Ox O2 Delivery O2 Flow Rate FiO2 06/15/24 22:55 149/90 06/15/24 22:03 63 20 96 40 06/15/24 17:42 Mechanical Ventilator+ 06/15/24 16:00 98.3 98.3 Physical Exam Gen.: Patient lying in bed in medical ICU. Sedated, intubated on mechanical ventilator. Head: Normocephalic, atraumatic. Eyes: PERRLA. Ears: Normal external anatomy. Throat: Endotracheal tube and orogastric tube in place. Neck: Supple, trachea midline. Chest: Transmitted breath sounds bilaterally. Decreased air entry bilaterally. No wheezing. Bibasilar crackles. Cardiovascular: Positive S1, positive S2. Regular rate and rhythm. Abdomen: Positive bowel sounds in all 4 quadrants. Soft, nontender, nondiste nded. : Santiago in place. Normal external genitalia. Rectal: Deferred. Skin: Warm, dry. Intact. Extremities: 2+ radial pulses bilaterally. No lower extremity edema. Neuro: Sedated. Labs/Diagnostic Data Labs Test 06/15/24 06:34 06/15/24 03:13 06/14/24 10:11 06/13/24 03:37 Range/Units Blood Gas Specimen Type Arterial Blood Gas Sample Site Right radial Blood Gas Patient Temperature 37.0 Arterial Blood Date Drawn [id number] Arterial Blood pH 7.472 H 7.350-7.450 Arterial Blood Partial Pressure CO2 38.0 32.0-45.0 mmHg Arterial Blood Partial Pressure O2 77.8 L 83.0-108.0 mmHg Arterial Blood HCO3 27.2 21.0-28.0 mmol/L Arterial Blood Oxygen Saturation 94.6 94.0-98.0 % Arterial Blood Base Excess 3.5 H -2.0-3.0 mmol/L Arterial Blood Oxyhemoglobin 94.3 94.0-98.0 % Arterial Blood Carboxyhemoglobin 0.0 L 0.5-1.5 % Arterial Blood Methemoglobin 0.3 0.0-1.5 % Ken Test Modified Blood Gas Total Hemoglobin 13.40 12.0-16.0 g/dL Blood Gas Set Respiration Rate 20.0 Blood Gas Modality Vent - ac FiO2 % 40.0 Blood Gas Tidal Volume 500.0 Blood Gas PEEP or CPAP 6.0 White Blood Count 11.2 H 4.4-10.8 10^3/uL Red Blood Count 4.73 4.0-5.20 10^6/uL Hemoglobin 12.3 12.2-16.2 g/dL Hematocrit 38.4 36.0-46.0 % Mean Corpuscular Volume 81.2 80.0-100.0 fL Mean Corpuscular Hemoglobin 26.0 L 28.0-32.0 pg Mean Corpuscular Hemoglobin Concent 32.0 32.0-36.0 g/dL Red Cell Distribution Width 17.0 H 11.8-14.3 % Platelet Count 245 140-450 10^3/uL Mean Platelet Volume 7.9 6.9-10.8 fL Neutrophils (%) (Auto) 68.1 37.0-80.0 % Lymphocytes (%) (Auto) 22.1 10.0-50.0 % Monocytes (%) (Auto) 8.4 0.0-12.0 % Eosinophils (%) (Auto) 0.5 0.0-7.0 % Basophils (%) (Auto) 0.9 0.0-2.0 % Neutrophils # (Auto) 7.7 1.6-8.6 10 ^3/uL Lymphocytes # (Auto) 2.5 0.4-5.4 10 ^3/uL Monocytes # (Auto) 0.9 0-1.3 10 ^3/uL Eosinophils # (Auto) 0.1 0-0.8 10 ^3/uL Basophils # (Auto) 0.1 0-0.2 10 ^3/uL Nucleated Red Blood Cells 0.1 % Sodium Level 147 H 136-145 mmol/L Potassium Level 3.8 3.5-5.1 mmol/L Chloride Level 111 H 98-107 mmol/L Carbon Dioxide Level 27 20-31 mmol/L Anion Gap 9 5-15 Blood Urea Nitrogen 38 H 9-23 mg/dL Creatinine 1.07 H 0.550-1.02 mg/dL Glomerular Filtration Rate Calc 58 >90 mL/min BUN/Creatinine Ratio 35.5 H 10.0-20.0 Serum Glucose 89 74-106 mg/dL Calcium Level 9.9 8.7-10.4 mg/dL Prothrombin Time 10.6 9.3-11.8 sec Prothrombin Time INR 1.00 0.9-1.15 Activated Partial Thromboplast Time 23.9 L 24.5-34.5 SEC Platelet Estimate Decrea Test 06/10/24 05:07 06/09/24 12:35 06/09/24 10:11 06/09/24 08:03 Range/Units Total Bilirubin 0.3 0.2-1.0 mg/dL Aspartate Amino Transferase (AST) 26 13-40 U/L Alanine Aminotransferase (ALT) 18 7-40 U/L Alkaline Phosphatase 127 H 46-116 U/L Total Protein 7.0 5.7-8.2 g/dL Albumin 4.0 3.2-4.8 g/dL Troponin I High Sensitivity 517 *H </=34 ng/L Influenza Type A Antigen Negative Negative Influenza Type B Antigen Negative Negative SARS-CoV-2 Antigen (Rapid) Negative NEGATIVE Triglycerides Level 163 H < 150 mg/dL Cholesterol Level 190 < 200 mg/dL LDL Cholesterol 134 H < 100 mg/dL HDL Cholesterol 31 L 40-59 mg/dL Thyroid Stimulating Hormone (TSH) 1.76 0.55-4.78 uIU/mL Test 06/09/24 04:19 06/09/24 02:44 Range/Units Urine Color Colorless Yellow Urine Clarity Clear Clear Urine pH 6.0 5.0-9.0 Urine Specific Beyer 1.005 1.001-1.035 Urine Protein Negative Negative Urine Ketones Negative Negative Urine Blood Negative Negative /uL Urine Nitrite Negative Negative Urine Bilirubin Negative Negative Urine Urobilinogen Normal Negative mg/dL Urine Leukocyte Esterase Negative Negative /uL Urine RBC 1 0 - 4 /hpf Urine Microscopic WBC < 1 0-5 /HPF Urine Squamous Epithelial Cells Few <5 /hpf Urine Bacteria Few H None Seen /hpf Urine Mucus Few None Seen Urine Glucose Normal Normal mg/dL Hemoglobin A1c 6.1 H <5.7 % A1C Lactic Acid Level 1.2 0.4-2.0 mmol/L B-Type Natriuretic Peptide 20.54 0-100 pg/mL Microbiology Date/Time Source Procedure Growth Status 06/13/24 21:48 Sputum Gram Stain - Final Resulted 06/13/24 21:48 Sputum Respiratory Culture - Preliminary Resulted 06/10/24 18:10 Nose MRSA Screen - Final Complete Assessment Impression: Acute hypoxic respiratory failure On mechanical ventilator Acute anaphylactic reaction, angioedema Possible aspiration pneumonia Congestive heart failure NSTEMI type 2 Acute kidney injury Morbid obesity Plan: s/p intubation on mechanical ventilator. CXR image and report reviewed. Devices in place. Bilateral opacities. No p neumothorax. No pleural effusion. ABG reviewed, alkalemia. On AC mode; RR 26, VT 500, PEEP 6, FiO2 40% Will taper FIO2 to 35% Titrate FIO2 to keep O2 saturation above 90%. VAP bundle. Daily ABG and CXR while intubated Sedate for ventilator synchrony Off Propofol On Versed, Fentanyl drip. Continue antibiotics. Tube feeds for nutritional support Pressors as necessary for hemodynamic support Titrate to keep mean arterial pressure greater than 65 mmHg. Monitor renal function Monitor electrolytes. Supplement as necessary. Monitor ins and outs. Taper sedation as tolerated CPAP in AM with PS 8, PEEP of 5. Precedex drip OK if necessary. Diet and lifestyle modifications for weight reduction Morbid obesity complicates all care GI prophylaxis. DVT prophylaxis. Prognosis: Poor given patient's multiple co-morbidities. Condition: Critical Rest of plan per hospitalist and other consultants. A total of 35 minutes of critical care time was spent reviewing the patient record, examining the patient, making a diagnostic and therapeutic plan, discussing this plan with the medical personnel, following up on diagnostic studies and following the patient for clinical stability excluding any and all procedures. At least 50% of this time was spent in direct, [id number] con tact. Thank you Dr. Lea for allowing me to participate in this patient's care. Further recommendations will depend on the patient's clinical course. Please do not hesitate to contact me if you have any questions or concerns. This medical document was created using an electronic medical record system with [employer] dictation system. Although these documentations are being carefully reviewed, there may still be some phonetic and typographical changes. The errors are purely typographical, due to imperfection on the software program, and do not reflect any compromise in the patient's medical care. Plan discussed with: Other (MITESH Guadarrama/Dr. Lea) ESPERANZA ISABEL MD Jun 15, 2024 23:23
[2024-06-16] VITALS (104 sets, daily range): BP systolic 119–165; BP diastolic 67–107; PULSE 52–118; RESP 11–22; TEMP 98.2–100.4; O2SAT 89–100
[2024-06-16 04:08] LABS: Basophils # (auto) 0.1 10 ^3/uL (0-0.2); Eosinophils # (auto) 0 10 ^3/uL (0-0.8); Eosinophils % (auto) 0.3 % (0.0-7.0); Hematocrit 40.8 % (36.0-46.0); Monocytes # (auto) 1.2 10 ^3/uL (0-1.3); Neutrophils # (auto) 8.4 10 ^3/uL (1.6-8.6)
[2024-06-16 04:12] LABS: Basophils % (auto) 0.6 % (0.0-2.0); Hemoglobin 13.5 g/dL (12.2-16.2); Lymphocytes # (auto) 1.9 10 ^3/uL (0.4-5.4); Lymphocytes % (auto) 16.8 % (10.0-50.0); Mean Corpuscular Hemoglobin 26.6 pg (28.0-32.0); Mean Corpuscular Volume 80.6 fL (80.0-100.0); Monocytes % (auto) 10.1 % (0.0-12.0); Neutrophils % (auto) 72.2 % (37.0-80.0); Platelet Count (auto) 271 10^3/uL (140-450); Red Blood Cells 5.06 10^6/uL (4.0-5.20); Red Cell Distribution Width 17.3 % (11.8-14.3); White Blood Cell 11.6 10^3/uL (4.4-10.8)
[2024-06-16 04:16] LABS: Anion Gap 12 (5-15); Carbon Dioxide 27 mmol/L (20-31)
[2024-06-16 04:17] LABS: Calcium 9.6 mg/dL (8.7-10.4)
[2024-06-16 04:18] LABS: Chloride 112 mmol/L (98-107); Sodium 151 mmol/L (136-145)
[2024-06-16 04:22] LABS: Glucose 81 mg/dL (74-106)
[2024-06-16 04:23] LABS: Blood Urea Nitrogen 36 mg/dL (9-23)
[2024-06-16 04:25] LABS: Phosphorus 2.7 mg/dL (2.4-5.1)
[2024-06-16] MEDS: DEXMEDETOMIDINE HCL IN D5W 100 ML IV SCH (05:11)
--- NOTE | 2024-06-16 05:48 | DVH ---
CHEST RADIOGRAPH Indication: reeval Technique: Single frontal view of the chest was obtained Comparison: XY CHEST XRAY 1 VIEW on DOS: 06/15/24, XY CHEST XRAY 1 VIEW on DOS: 06/14/24, XY CHEST XRAY 1 VIEW on DOS: 06/13/24 IMPRESSION: Extremely suboptimal evaluation excluding the lung apices and lower neck. Endotracheal tube tip, enteric tube, and right PICC line appear relatively similar in position. Possi ble increased opacification of the left lung. Repeat imaging is recommended.
--- NOTE | 2024-06-16 06:36 | DVH ---
Exam: US US GUIDED VASCULAR ACCESS Clinical History: PICC LINE PLACEMENT Comparison: None Findings: Targeted sonographic evaluation of the arm vein was obtained utilizing grayscale and color Doppler im aging. IMPRESSION: Sonographic assistance for central line placement. Please refer to procedural report for detailed fin dings.
[2024-06-16 07:20] LABS: Base Excess 5.1 mmol/L (-2.0-3.0)
--- NOTE | 2024-06-16 13:02 | DVHPNRES ---
Progress Note Date Seen: Jun 16, 2024 Resident Creating Document: CHRIS JOSE RESIDENT Has the PT tested + for MRSA If YES, has PT been informed?: No Medical Necessity Reason Pt with a Central, PICC or Fol: No Subjective Review of Systems This is a 63-year-old female with past medical history of hypertension and morbid obesity grade 3, who presented to the ED with chief complaint of allergic reaction. Upon admission, the patient was complaining of mild shortness of breath, facial swelling, tongue swelling, throat swelling and wheezes. Patient was evaluated by the ED staff and decision to secure airway was taken to prevent airway collapse. Patient was intubated and placed on mechanical ventilator. Initial parameters were VT 500, RR 22, FiO2 55%, peep 10. Patient was started on methylprednisolone 60 mg b.i.d., sedation. Prophylactic dose of enoxaparin. Patient was admitted for further assessment and management. Patient seen and examined at bedside. Patient is sedated and intubated on the following mechanical ventilatory settings: VT 500, if 20, FiO2 35%, PEEP 6 saturating 95%. ABG was reviewed which show a pH of 7.48, pCO2 of 39.7, HC03 of 28.9 and PaO2 of 60.1. Despite low ventilatory settings patient PaO2 is in the lower side and is currently having bilateral secretion sounds on both lung lopez. Last chest x-ray performed this morning was also showing bilateral opacities on both lungs which are worse compared to previous x-rays. We will discuss in detail with streetcar operator Dr. Bautista, regarding a possible benefit of bronchoscopy. [facility] agree and we will plan for bronchoscopy, consents were obtained by daughter at bedside and procedure, pros and cons were explained to the daughter which agreed and understood. We will continue current medical management. ROS unable to obtain due to patient's current status intubated and sedated. Objective vital signs Vital Sign Date Time Temp Pulse Resp B/P (MAP) Pulse Ox O2 Delivery O2 Flow Rate FiO2 06/16/24 11:47 63 20 139/85 (103) 95 35 06/16/24 11:47 Mechanical Ventilator+ 06/16/24 11:45 99.3 210.7 Total Intake and Output 06/15/24 06/15/24 06/16/24 15:00 23:00 07:00 Intake Total 263.5 ml 317.5 ml 535.05 ml Output Total 1800 ml 1850 ml Balance 263.5 ml -1482.5 ml -1314.95 ml medications Current Medications Medications Dose Ordered Sig/Maday Route Start Time Stop Time Status Last Admin Dose Admin Midazolam HCl 50 ml @ 1 mls/hr Q24H IV 06/09/24 03:15 06/15/24 22:55 5 MLS/HR Ondansetron HCl 4 mg Q4HP PRN IV 06/09/24 08:00 Enoxaparin Sodium 40 mg DAILY SC 06/09/24 10:00 06/16/24 07:29 40 MG Hydralazine HCl 10 mg Q6HP PRN IV 06/09/24 08:00 06/11/24 17:39 10 MG Aspirin 81 mg DAILY PO 06/10/24 10:00 06/16/24 07:30 81 MG Atorvastatin Calcium 40 mg HS PO 06/09/24 22:00 06/15/24 22:47 40 MG Pantoprazole Sodium 40 mg DAILY IV 06/09/24 10:00 06/16/24 07:28 40 MG Albuterol 2.5 mg Q6HR NEB 06/09/24 12:00 06/16/24 11:46 2.5 MG Ipratropium [place] 0.5 mg Q6HR NEB 06/09/24 12:00 06/16/24 11:46 0.5 MG Piperacillin Sod/ Tazobactam Sod 100 ml @ 25 mls/hr Q8HR IV 06/10/24 17:00 06/16/24 05:33 25 MLS/HR Methylprednisolone Sodium Succinate 40 mg DAILY IV 06/10/24 10:00 06/16/24 07:28 40 MG Fentanyl Citrate 250 ml @ 2.5 mls/hr Q24H IV 06/10/24 17:45 06/15/24 14:43 10 MLS/HR Amlodipine Besylate 10 mg DAILY PO 06/11/24 08:15 06/16/24 07:29 10 MG Norepinephrine Bitartrate 250 ml @ 3.75 mls/hr Q24H IV 06/11/24 19:00 Acetylcysteine 100 mg Q6HR NEB 06/12/24 12:00 06/16/24 11:46 100 MG Enteral Nutritional Formula 1,000 ml 30ML/HR GT 06/12/24 13:15 Doxycycline Monohydrate 100 mg Q12HR PO 06/13/24 22:00 06/16/24 07:29 100 MG Bumetanide 2 mg BIDD IV 06/14/24 18:00 06/16/24 05:29 2 MG Sodium Chloride 10 ml QSHIFT@10,22 IV 06/14/24 10:00 06/16/24 07:29 10 ML Examination Physical Examination General: Patient sedated and intubated on the following parameters VT 500, RR 20, FiO2 35, peep 6. HEENT: Normocephalic, atraumatic, moist mucous membranes Respiratory/pulmonary: Clear lungs bilaterally,there are bilateral secretion sounds. no associated crackles or wheezes. Cardiovascular: Normal heart sounds S1 and S2 with no associated murmurs Abdomen: Abdomen nondistended, there is no pain to palpation in any of the abdominal quadrants, no palpable masses. Extremities: There is no peripheral edema present at the lower extremities. Peripheral Pulses: 3+ Radial (R). 3+ Radial (L). 3+ Dorsalis pedis (R). 3+ Dorsalis pedis(L) Skin: No rashes or pruritus, there is no sacral edema present at this time. Neurological: Sedated currently RASS -3 laboratory and microbiology Laboratory Tests 06/16/24 03:00 Test 06/16/24 03:00 Range/Units Serum Glucose 81 74-106 mg/dL Microbiology Date/Time Source Procedure Growth Status 06/13/24 21:48 Sputum Gram Stain - Final Resulted 06/13/24 21:48 Sputum Respiratory Culture - Preliminary Resulted 06/10/24 18:10 Nose MRSA Screen - Final Complete Problem List/Assessment/Plan Problem List/Assessment/Plan Assessment/Plan Acute anaphylactic reaction, unkown source Acute angioedema SIRS with endorgan damage DI Acute hypoxic respiratory failure likely due to above -patient was having facial swelling, tongue, throat swelling and decision was to intubate to protect airway -patient is currently intubated on the following mechanical ventilatory settings: VT 500, RR 20, FiO2 35%, peep 6 -monitor ABG -continue methylprednisolone 40 mg IV daily -sedated on propofol, Versed. Analgesia with fentanyl -keep saturation above 92% -Obtained consent for bronchoscopy, plan discussed with Dr. Bautista Possible aspiration pneumonia -Continue on IV zosyn -Continue doxycycline -Monitor Chest xrays 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% -echocardiogram showed LVEF of 45% with apical wall abnormalities and hypokinesis -EKG showed sinus rhythm with right bundle branch block and T-wave inversion in all leads -troponins were elevated -Continue bumex to 2 mg BID NSTEMI type 2 likely due to above -trend troponins -cardiology on the case DI likely due to vasomotor nephropathy -creatinine was 1.03, Cr 1.13 -we will monitor kidney function closely -hold Nirav or arbs at this time Primary hypertension -blood pressure on normal range at this time -patient sedated and intubated, not needing vasopressor at this time Dyslipidemia -continue atorvastatin 40 mg daily Morbid obesity Grade III -Lifestyle modification Will place PICC line. Goals of care discussed with daughter by phone for >25min, FULL CODE Critical time spent >43min Plan discussed with Dr. Houser Plan discussed with: Daughter, Other Dietary Evaluation Review Comments: 1. Recommend Vital HP while on high-dose propofol; begin @ 10 ml/hr, advance by 10 ml Q4 or as tolerated to goal-rate of 50 ml/hr continuously 2. Provide minimal free water flushes for tube patency of 30 ml Q6 (120 ml total); adjust PRN 3. Monitor BMP/lytes and replete per protocol TF Provision: TF at goal to provide 1200 ml total volume, 1200 kcal (+562 via propofol = 1762 kcal), 105 gm pro, 0 gm fiber, 1103 ml H20 (meets 100% est. kcal needs, 100% est. pro needs) Expected Outcomes/Goals: Adequate nutrition, weight maintenance, improved hemodynamic stability. Date of Service: Jun 16, 2024 Billing Provider: RENEE HOUSER MD Common Visit Codes: 54011-[id number] INP/OBS CARE(HIGH) CHRIS JOSE RESIDENT Jun 16, 2024 13:02 RENEE HOUSER MD Jun 16, 2024 22:44
--- NOTE | 2024-06-16 23:02 | DVHNC2 ---
Procedure - Bronchoscopy procedure note: Indications: Right and lower lobe atelectasis, Possible mucous plugging. Medicines: See DAIRY AND FOOD LABORATORY ASSISTANT notes. Complications: None Procedure: Patient medications and allergies reviewed. The risks and benefits of the procedure and the sedation options and risk were discussed with the patient's healthcare proxy. All questions were answered and informed consent was obtained. Patient identification and proposed procedure were verified prior to the procedure by the physician, and a nurse, and the respiratory therapist in ICU room. The heart rate, respiratory rate, oxygen saturations, blood pressure, adequacy of pulmonary ventilation, and response to care were monitored throughout the procedure. The physical status of the patient was reassessed after the procedure. After obtaining informed consent, the bronchoscope was introduced through the endotracheal tube and advanced into the trachea bronchial tree of both lungs. The procedure was accomplished without difficulty. The patient tolerated the procedure well. Findings: The trachea is in normal caliber. The ambar is sharp. The tracheobronchial tree of the right lung was examined to at least the first subsegmental level. The bronchial mucosa and anatomy in the right lung are normal. There are no endobronchial lesions. There was copious whitish secretions from right main stem bronchus onward throughout R6-R10. Right middle lobe (RML) Bronchoalveolar lavage (BAL) obtained. RML BAL sent for gram stain and culture. The left upper lobe, lingula, and left lower lobe were examined to at least the first subsegmental level. Bronchial mucosa and anatomy in the left upper lobe and lingula are normal. There were no endobronchial lesions. There was copious whitish secretions from left main stem bronchus onward throughout L1-L10. Mucous plugging removed from L6-L10. There was no active bleeding at the completion of the procedure. Estimated blood loss: Less than 5 mL. Impression: Right and left lower lobe atelectasis due to mucous plugging Mucous plugging from L6-L10 and R6-R10 RML BAL performed Recommendation: Follow-up RML BAL results. Procedure codes: 17367, bronchoscopy, rigid and flexible, including fluoroscopic guidance, one performed; with bronchial endobronchial broncho-alveolar lavage, single or multiple sites ESPERANZA ISABEL MD Jun 16, 2024 23:02
[2024-06-16] MEDS: Glucerna 1.2 Cal 1Liter BOTTLE GT SCH (23:19)
--- NOTE | 2024-06-16 23:44 | DVHPN2 ---
Progress Note - Dictate Date Seen: Jun 16, 2024 Has the PT tested + for MRSA If YES, has PT been informed?: No Medical Necessity Reason Pt with a Central, PICC or Fol: Yes The following are medically ne: Bae Catheter Reason for bae catheter: Strict I&O Subjective Patient seen and examined at bedside. Sedated, intubated on mechanical ventilator. Overnight events reviewed. vital signs Vital Sign Date Time Temp Pulse Resp B/P (MAP) Pulse Ox O2 Delivery O2 Flow Rate FiO2 06/16/24 23:15 100.2 87 20 128/85 (99) 93 212.4 06/16/24 22:44 35 06/16/24 22:00 Mechanical Ventilator+ Total Intake and Output 06/15/24 06/15/24 06/16/24 15:00 23:00 07:00 Intake Total 263.5 ml 317.5 ml 535.05 ml Output Total 1800 ml 1850 ml Balance 263.5 ml -1482.5 ml -1314.95 ml medications Current Medications Medications Dose Ordered Sig/Maday Route Start Time Stop Time Status Last Admin Dose Admin Midazolam HCl 50 ml @ 1 mls/hr Q24H IV 06/09/24 03:15 06/16/24 21:17 10 MLS/HR Ondansetron HCl 4 mg Q4HP PRN IV 06/09/24 08:00 Enoxaparin Sodium 40 mg DAILY SC 06/09/24 10:00 06/16/24 07:29 40 MG Hydralazine HCl 10 mg Q6HP PRN IV 06/09/24 08:00 06/11/24 17:39 10 MG Aspirin 81 mg DAILY PO 06/10/24 10:00 06/16/24 07:30 81 MG Atorvastatin Calcium 40 mg HS PO 06/09/24 22:00 06/16/24 22:59 40 MG Pantoprazole Sodium 40 mg DAILY IV 06/09/24 10:00 06/16/24 07:28 40 MG Albuterol 2.5 mg Q6HR NEB 06/09/24 12:00 06/16/24 18:16 2.5 MG Ipratropium Crosby 0.5 mg Q6HR NEB 06/09/24 12:00 06/16/24 18:16 0.5 MG Piperacillin Sod/ Tazobactam Sod 100 ml @ 25 mls/hr Q8HR IV 06/10/24 17:00 06/16/24 21:17 25 MLS/HR Methylprednisolone Sodium Succinate 40 mg DAILY IV 06/10/24 10:00 06/16/24 07:28 40 MG Fentanyl Citrate 250 ml @ 2.5 mls/hr Q24H IV 06/10/24 17:45 06/16/24 12:52 10 MLS/HR Amlodipine Besylate 10 mg DAILY PO 06/11/24 08:15 06/16/24 07:29 10 MG Norepinephrine Bitartrate 250 ml @ 3.75 mls/hr Q24H IV 06/11/24 19:00 Acetylcysteine 100 mg Q6HR NEB 06/12/24 12:00 06/16/24 18:16 100 MG Enteral Nutritional Formula 1,000 ml 30ML/HR GT 06/12/24 13:15 06/16/24 23:19 1,000 ML Doxycycline Monohydrate 100 mg Q12HR PO 06/13/24 22:00 06/16/24 22:59 100 MG Bumetanide 2 mg BIDD IV 06/14/24 18:00 06/16/24 16:50 2 MG Sodium Chloride 10 ml QSHIFT@10,22 IV 06/14/24 10:00 06/16/24 21:17 10 ML Acetaminophen 650 mg Q6HP PRN GT 06/16/24 20:30 objective Gen.: Patient lying in bed in medical ICU. Sedated, intubated on mechanical ventilator. Head: Normocephalic, atraumatic. Eyes: PERRLA. Ears: Normal external anatomy. Throat: Endotracheal tube and orogastric tube in place. Neck: Supple, trachea midline. Chest: Transmitted breath sounds bilaterally. Decreased air entry bilaterally. No wheezing. Bibasilar crackles. Cardiovascular: Positive S1, positive S2. Regular rate and rhythm. Abdomen: Positive bowel sounds in all 4 quadrants. Soft, nontender, nondistended. : Bae in place. Normal external genitalia. Rectal: Deferred. Skin: Warm, dry. Intact. Extremities: 2+ radial pulses bilaterally. No lower extremity edema. Neuro: Sedated. laboratory and microbiology Laboratory Tests 06/16/24 03:00 Test 06/16/24 03:00 Range/Units Serum Glucose 81 74-106 mg/dL Assessment/Plan Impression: Acute hypoxic respiratory failure On mechanical ventilator Acute anaphylactic reaction, angioedema Possible aspiration pneumonia Congestive heart failure NSTEMI type 2 Acute kidney injury Morbid obesity Events: Remains on vent support On AC mode; RR 20, VT 500, PEEP 6, FiO2 35% Sedated on Versed, Fentanyl Continue antibiotics. Tube feeds for nutritional support Increased ET tube secretions Obtain consent for therapeutic bronchoscopy to clear mucous plugging ABG reviewed, notable for alkalemia. Labs and imaging reviewed. Rest of plan as noted below. Plan: s/p intubation on mechanical ventilator. On AC mode; RR 20, VT 500, PEEP 6, FiO2 35% Will taper FIO2 to 35% Titrate FIO2 to keep O2 saturation above 90%. VAP bundle. Daily ABG and CXR while intubated Sedate for ventilator synchrony Continue antibiotics. Tube feeds for nutritional support Pressors as necessary for hemodynamic support Titrate to keep mean arterial pressure greater than 65 mmHg. Monitor renal function Monitor electrolytes. Supplement as necessary. Monitor ins and outs. Taper sedation as tolerated CPAP with PS 8, PEEP of 5. Precedex drip OK if necessary. Diet and lifestyle modifications for weight reduction Morbid obesity complicates all care GI prophylaxis. DVT prophylaxis. Prognosis: Poor given patient's multiple co-morbidities. Condition: Critical Rest of plan per hospitalist and other consultants. A total of 35 minutes of critical care time was spent reviewing the patient record, examining the patient, making a diagnostic and therapeutic plan, discussing this plan with the medical personnel, following up on diagnostic studies and following the patient for clinical stability excluding any and all procedures. At least 50% of this time was spent in direct, [id number] contact. Thank you Dr. Lea for allowing me to participate in this patient's care. Further recommendations will depend on the patient's clinical course. Please do not hesitate to contact me if you have any questions or concerns. This medical document was created using an electronic medical record system with [employer] dictation system. Although these documentations are being carefully reviewed, there may still be some phonetic and typographical changes. The errors are purely typographical, due to imperfection on the software program, and do not reflect any compromise in the patient's medical care. Dietary Evaluation Review Comments: 1. Recommend Vital HP while on high-dose propofol; begin @ 10 ml/hr, advance by 10 ml Q4 or as tolerated to goal-rate of 50 ml/hr continuously 2. Provide minimal free water flushes for tube patency of 30 ml Q6 (120 ml total); adjust PRN 3. Monitor BMP/lytes and replete per protocol TF Provision: TF at goal to provide 1200 ml total volume, 1200 kcal (+562 via propofol = 1762 kcal), 105 gm pro, 0 gm fiber, 1103 ml H20 (meets 100% est. kcal needs, 100% est. pro needs) Expected Outcomes/Goals: Adequate nutrition, weight maintenance, improved hemodynamic stability. Plan discussed with: Other (MITESH Arredondo) Critical Care Time(min): 35 ESPERANZA ISABEL MD Jun 16, 2024 23:44
[2024-06-17] VITALS (110 sets, daily range): BP systolic 100–150; BP diastolic 62–104; PULSE 55–100; RESP 15–25; TEMP 98.1–100.2; O2SAT 88–100
[2024-06-17] MEDS: FLEET ENEMA(ADULT) 135 ML PR ONE (02:55)
[2024-06-17 03:53] LABS: Basophils # (auto) 0.1 10 ^3/uL (0-0.2); Basophils % (auto) 0.8 % (0.0-2.0); Eosinophils # (auto) 0 10 ^3/uL (0-0.8); Eosinophils % (auto) 0.2 % (0.0-7.0); Lymphocytes # (auto) 2.1 10 ^3/uL (0.4-5.4)
[2024-06-17 03:55] LABS: Hematocrit 43.7 % (36.0-46.0); Hemoglobin 14.3 g/dL (12.2-16.2); Lymphocytes % (auto) 15.1 % (10.0-50.0); Mean Corpuscular Hemoglobin 26.3 pg (28.0-32.0); Mean Corpuscular Hgb Conc. 32.7 g/dL (32.0-36.0); Mean Corpuscular Volume 80.4 fL (80.0-100.0); Monocytes # (auto) 1.3 10 ^3/uL (0-1.3); Monocytes % (auto) 9.2 % (0.0-12.0); Neutrophils # (auto) 10.4 10 ^3/uL (1.6-8.6); Neutrophils % (auto) 74.7 % (37.0-80.0); Platelet Count (auto) 292 10^3/uL (140-450); Red Blood Cells 5.44 10^6/uL (4.0-5.20); White Blood Cell 13.9 10^3/uL (4.4-10.8)
[2024-06-17 04:11] LABS: Alanine Aminotransferase 24 U/L (7-40); Albumin 4.7 g/dL (3.2-4.8); Alkaline Phosphatase 121 U/L (46-116); Anion Gap 14 (5-15); Aspartate Aminotransferase 33 U/L (13-40); BUN/Creatinine Ratio 30.5 (10.0-20.0); Bilirubin, Total 0.8 mg/dL (0.2-1.0); Blood Urea Nitrogen 36 mg/dL (9-23); Calcium 10.8 mg/dL (8.7-10.4); Carbon Dioxide 27 mmol/L (20-31); Chloride 112 mmol/L (98-107); Glucose 109 mg/dL (74-106); Potassium 3.4 mmol/L (3.5-5.1); Sodium 153 mmol/L (136-145); Total Protein 8.1 g/dL (5.7-8.2)
--- NOTE | 2024-06-17 04:33 | DVH ---
CHEST RADIOGRAPH Indication: reeval of biat opacities Technique: Single frontal view of the chest was obtained Comparison: XY CHEST XRAY 1 VIEW on DOS: 06/16/24 FINDINGS: Lines and Tubes: The endotracheal tube terminates 3.0 cm above the ambar. Right PICC terminates in the superior vena cava. The enteric tube courses below the left hemidiaphragm and the tip extends out side the field of view. Lungs: Bibasilar airspace disease. Pleura: No effusion. No pneumothorax. Cardiomediastinal contours: Cardiomegaly. Bones: No acute osseous abnormality. IMPRESSION: 1. Appropriate position of the support lines and tubes. 2. Bibasilar airspace disease.
[2024-06-17] MEDS: POTASSIUM CHL 20MEQ/50ML 50 ML IV SCH (06:01)
[2024-06-17] MEDS: POTASSIUM CHL 20MEQ/100ML 100 ML IV ONE (07:30)
[2024-06-17 07:34] LABS: Base Excess 3.8 mmol/L (-2.0-3.0)
[2024-06-17] MEDS: POTASSIUM CHL 20MEQ/50ML 50 ML IV ONE (09:36)
--- NOTE | 2024-06-17 09:51 | DVHPNRES ---
Progress Note Date Seen: Jun 17, 2024 Resident Creating Document: CHRIS JOSE RESIDENT Has the PT tested + for MRSA If YES, has PT been informed?: No Medical Necessity Reason Pt with a Central, PICC or Fol: Yes The following are medically ne: Bae Catheter Reason for bae catheter: Strict I&O Subjective Review of Systems This is a 63-year-old female with past medical history of hypertension and morbid obesity grade 3, who presented to the ED with chief complaint of allergic reaction. Upon admission, the patient was complaining of mild shortness of breath, facial swelling, tongue swelling, throat swelling and wheezes. Patient was evaluated by the ED staff and decision to secure airway was taken to prevent airway collapse. Patient was intubated and placed on mechanical ventilator. Initial parameters were VT 500, RR 22, FiO2 55%, peep 10. Patient was started on methylprednisolone 60 mg b.i.d., sedation. Prophylactic dose of enoxaparin. Patient was admitted for further assessment and management. Patient seen and examined at bedside. Is currently sedated and intubated on the following vent mechanical ventilatory settings: VT 500, if 20, FiO2 35% peep 6. We reviewed ABG which was showing a pH of 7.47, pCO2 38.3, PaO2 of 72.5 HC03 of 27.5 based on these gas and last chest x-ray performed today which is showing improvement of the bilateral lung bases opacities compared to previous days we decided to decrease PEEP to 5. We will check for air leak, since bronchoscopy which was performed yesterday showed that the throat was swollen at the level of the tube. Bronchoscopy was performed yesterday without complications and mucus plugs were removed from both right and left lower lobes. We will continue current medical management with doxycycline and Zosyn for antibiotic coverage, bumetanide 2 mg b.i.d. and we will increase methylprednisolone to 40 b.i.d. which check with RT for air leak but there was no air leak at this time. We will give an extra dose of Decadron 6 mg IV. ROS unable to obtain due to patient's current status sedated and intubated. Objective vital signs Vital Sign Date Time Temp Pulse Resp B/P (MAP) Pulse Ox O2 Delivery O2 Flow Rate FiO2 06/17/24 09:38 96 Mechanical Ventilator 06/17/24 09:38 35 35 06/17/24 09:37 79 06/17/24 09:37 20 06/17/24 09:33 107/74 (85) 06/17/24 09:30 99.5 211.1 Total Intake and Output 06/16/24 06/16/24 06/17/24 15:00 23:00 07:00 Intake Total 236.55 ml 327.5 ml 733 ml Output Total 1650 ml 1750 ml Balance 236.55 ml -1322.5 ml -1017 ml medications Current Medications Medications Dose Ordered Sig/Maday Route Start Time Stop Time Status Last Admin Dose Admin Midazolam HCl 50 ml @ 1 mls/hr Q24H IV 06/09/24 03:15 06/17/24 07:17 9 MLS/HR Ondansetron HCl 4 mg Q4HP PRN IV 06/09/24 08:00 Enoxaparin Sodium 40 mg DAILY SC 06/09/24 10:00 06/17/24 07:59 40 MG Hydralazine HCl 10 mg Q6HP PRN IV 06/09/24 08:00 06/11/24 17:39 10 MG Aspirin 81 mg DAILY PO 06/10/24 10:00 06/17/24 08:00 81 MG Atorvastatin Calcium 40 mg HS PO 06/09/24 22:00 06/16/24 22:59 40 MG Pantoprazole Sodium 40 mg DAILY IV 06/09/24 10:00 06/16/24 07:28 40 MG Albuterol 2.5 mg Q6HR NEB 06/09/24 12:00 06/17/24 06:31 2.5 MG Ipratropium [place] 0.5 mg Q6HR NEB 06/09/24 12:00 06/17/24 06:31 0.5 MG Piperacillin Sod/ Tazobactam Sod 100 ml @ 25 mls/hr Q8HR IV 06/10/24 17:00 06/17/24 04:37 25 MLS/HR Methylprednisolone Sodium Succinate 40 mg DAILY IV 06/10/24 10:00 06/17/24 07:59 40 MG Fentanyl Citrate 250 ml @ 2.5 mls/hr Q24H IV 06/10/24 17:45 06/17/24 08:01 10 MLS/HR Amlodipine Besylate 10 mg DAILY PO 06/11/24 08:15 06/17/24 08:00 10 MG Norepinephrine Bitartrate 250 ml @ 3.75 mls/hr Q24H IV 06/11/24 19:00 Acetylcysteine 100 mg Q6HR NEB 06/12/24 12:00 06/17/24 06:31 100 MG Enteral Nutritional Formula 1,000 ml 30ML/HR GT 06/12/24 13:15 06/16/24 23:19 1,000 ML Doxycycline Monohydrate 100 mg Q12HR PO 06/13/24 22:00 06/17/24 08:00 100 MG Bumetanide 2 mg BIDD IV 06/14/24 18:00 06/17/24 04:36 2 MG Sodium Chloride 10 ml QSHIFT@10,22 IV 06/14/24 10:00 06/17/24 08:01 10 ML Acetaminophen 650 mg Q6HP PRN GT 06/16/24 20:30 Purified Water 250 ml Q6HR GT 06/17/24 12:00 Examination Physical Examination General: Patient sedated and intubated on the following parameters VT 500, RR 20, FiO2 35, peep 5 HEENT: Normocephalic, atraumatic, moist mucous membranes Respiratory/pulmonary: Clear lungs bilaterally,there are bilateral secretion sounds. no associated crackles or wheezes. Cardiovascular: Normal heart sounds S1 and S2 with no associated murmurs Abdomen: Abdomen nondistended, there is no pain to palpation in any of the abdominal quadrants, no palpable masses. Extremities: There is no peripheral edema present at the lower extremities. Peripheral Pulses: 3+ Radial (R). 3+ Radial (L). 3+ Dorsalis pedis (R). 3+ Dorsalis pedis(L) Skin: No rashes or pruritus, there is no sacral edema present at this time. Neurological: Sedated currently RASS -3 laboratory and microbiology Laboratory Tests 06/17/24 03:10 Test 06/17/24 03:10 Range/Units Serum Glucose 109 H 74-106 mg/dL Microbiology Date/Time Source Procedure Growth Status 06/13/24 21:48 Sputum Gram Stain - Final Complete 06/13/24 21:48 Sputum Respiratory Culture - Final Complete 06/10/24 18:10 Nose MRSA Screen - Final Complete Problem List/Assessment/Plan Problem List/Assessment/Plan Assessment/Plan Acute anaphylactic reaction, unkown source Acute angioedema SIRS with endorgan damage DI Acute hypoxic respiratory failure likely due to above -patient was having facial swelling, tongue, throat swelling and decision was to intubate to protect airway -patient is currently intubated on the following mechanical ventilatory settings: VT 500, RR 20, FiO2 35%, peep 6 -monitor ABG -increase methylprednisolone to 40 mg IV b.i.d. -sedated on propofol, Versed. Analgesia with fentanyl -keep saturation above 92% -bronchoscopy was performed yesterday on 06/16/2024, no complications, bilateral mucus plugs were removed from right and left lower lobes of the lung. -there was no air leak present at this time. We will give a single dose of Decadron 6 mg IV and increase methylprednisolone to 40mg b.i.d. -chest x-ray today was reviewed and is showing less opacities on bilateral lung bases which are improving compared to previous chest x-ray. Possible aspiration pneumonia POA Possible aspiration pneumonitis not present on admission -Continue on IV zosyn -Continue doxycycline -Monitor Chest xrays 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% -echocardiogram showed LVEF of 45% with apical wall abnormalities and hypokinesis -EKG showed sinus rhythm with right bundle branch block and T-wave inversion in all leads -troponins were elevated -Continue bumex to 2 mg BID NSTEMI type 2 likely due to above -trend troponins -cardiology on the case DI likely due to vasomotor nephropathy -creatinine was 1.03, Cr 1.13 -we will monitor kidney function closely -hold Nirav or arbs at this time Primary hypertension -blood pressure on normal range at this time -patient sedated and intubated, not needing vasopressor at this time Dyslipidemia -continue atorvastatin 40 mg daily Morbid obesity Grade III -Lifestyle modification Will place PICC line. Goals of care discussed with daughter by phone for >25min, FULL CODE Critical time spent >41min Plan discussed with Dr. Marcial Plan discussed with: Daughter My Orders My Orders Orders - CHRIS JOSE RESIDENT Procedure Category Date Status Time Chest Xray 1 View XY 06/17/24 Resulted 04:00 Abg W/ Co-Ox RT 06/17/24 Logged 04:00 Ventilator Orders RT 06/17/24 Transmitted 08:20 Ventilator Orders RT 06/17/24 Transmitted 09:30 Dietary Evaluation Review Comments: 1. Recommend Vital HP while on high-dose propofol; begin @ 10 ml/hr, advance by 10 ml Q4 or as tolerated to goal-rate of 50 ml/hr continuously 2. Provide minimal free water flushes for tube patency of 30 ml Q6 (120 ml total); adjust PRN 3. Monitor BMP/lytes and replete per protocol TF Provision: TF at goal to provide 1200 ml total volume, 1200 kcal (+562 via propofol = 1762 kcal), 105 gm pro, 0 gm fiber, 1103 ml H20 (meets 100% est. kcal needs, 100% est. pro needs) Expected Outcomes/Goals: Adequate nutrition, weight maintenance, improved hemodynamic stability. Date of Service: Jun 17, 2024 Billing Provider: LISSETTE MARCIAL MD Common Visit Codes: [id number] INP/OBS CARE(HIGH) CHRIS JOSE RESIDENT Jun 17, 2024 09:51 LISSETTE MARCIAL MD Jun 17, 2024 16:50
[2024-06-17] MEDS: FREE WATER GT SCH (10:30)
[2024-06-17] MEDS: methylPREDNISolone SOD SUCC 125 MG/2 ML VL IV SCH (10:30)
[2024-06-17] MEDS: DexAMETHasone SOD PHOS 10MG/1ML VIAL INJ IV ONE (10:30)
[2024-06-17] MEDS: D5W 5% 500 ML IV ONE (14:50)
[2024-06-18] VITALS (108 sets, daily range): BP systolic 109–154; BP diastolic 65–94; PULSE 53–76; RESP 16–22; TEMP 98.2–99; O2SAT 91–100
[2024-06-18 04:15] LABS: Basophils # (auto) 0 10 ^3/uL (0-0.2); Basophils % (auto) 0.3 % (0.0-2.0); Eosinophils # (auto) 0 10 ^3/uL (0-0.8); Hematocrit 41.5 % (36.0-46.0); Hemoglobin 13.6 g/dL (12.2-16.2); Lymphocytes # (auto) 0.9 10 ^3/uL (0.4-5.4); Lymphocytes % (auto) 8.7 % (10.0-50.0); Mean Corpuscular Hemoglobin 26.3 pg (28.0-32.0); Mean Corpuscular Hgb Conc. 32.6 g/dL (32.0-36.0); Mean Corpuscular Volume 80.6 fL (80.0-100.0); Monocytes # (auto) 0.5 10 ^3/uL (0-1.3); Monocytes % (auto) 4.7 % (0.0-12.0); Neutrophils # (auto) 8.6 10 ^3/uL (1.6-8.6); Neutrophils % (auto) 86.3 % (37.0-80.0); Nucleated Red Blood Cells % 0.1 %; Platelet Count (auto) 280 10^3/uL (140-450); Red Blood Cells 5.15 10^6/uL (4.0-5.20); Red Cell Distribution Width 17.2 % (11.8-14.3)
[2024-06-18 04:35] LABS: Anion Gap 14 (5-15); Carbon Dioxide 27 mmol/L (20-31)
[2024-06-18 04:36] LABS: Calcium 10.6 mg/dL (8.7-10.4); Chloride 112 mmol/L (98-107); Potassium 3.4 mmol/L (3.5-5.1); Sodium 153 mmol/L (136-145)
[2024-06-18 04:41] LABS: BUN/Creatinine Ratio 37.9 (10.0-20.0); Magnesium 2.4 mg/dL (1.6-2.6)
[2024-06-18 04:43] LABS: Blood Urea Nitrogen 47 mg/dL (9-23); Glucose 124 mg/dL (74-106)
--- NOTE | 2024-06-18 05:21 | DVH ---
EXAM: XR Chest, 1 View CLINICAL INDICATION: reeval TECHNIQUE: Frontal view of the chest. COMPARISON: XY CHEST XRAY 1 VIEW on DOS: 06/17/24, XY CHEST XRAY 1 VIEW on DOS: 06/16/24, XY CHEST XR AY 1 VIEW on DOS: 06/15/24, XY CHEST XRAY 1 VIEW on DOS: 06/14/24, XY CHEST XRAY 1 VIEW on DOS: 06/13/24 FINDINGS: LUNGS AND PLEURAL SPACES: Mild congestive heart failure. No consolidation. No pneumothorax. HEART: Unremarkable. No cardiomegaly. MEDIASTINUM: Unremarkable. Normal mediastinal contour. BONES/JOINTS: Unremarkable. No acute fracture. TUBES, LINES AND DEVICES: Right peripherally inserted central catheter (PICC) tip in the superior v terell cava. The endotracheal tube (ETT) is in satisfactory position. Enteric tube tip in the stomach. OTHER FINDINGS: . . IMPRESSION: Mild congestive heart failure.
[2024-06-18] MEDS ORDERED: D5W 5% 500 ML IV ONE (07:00)
[2024-06-18 07:44] LABS: Base Excess 1.2 mmol/L (-2.0-3.0)
[2024-06-18] MEDS: POTASSIUM CHL 20MEQ/50ML 50 ML IV SCH (08:30)
--- NOTE | 2024-06-18 11:25 | DVHPNRES ---
Progress Note Date Seen: Jun 18, 2024 Resident Creating Document: CHRIS JOSE RESIDENT Has the PT tested + for MRSA If YES, has PT been informed?: No Medical Necessity Reason Pt with a Central, PICC or Fol: Yes The following are medically ne: Bae Catheter Reason for bae catheter: Strict I&O Subjective Review of Systems This is a 63-year-old female with past medical history of hypertension and morbid obesity grade 3, who presented to the ED with chief complaint of allergic reaction. Upon admission, the patient was complaining of mild shortness of breath, facial swelling, tongue swelling, throat swelling and wheezes. Patient was evaluated by the ED staff and decision to secure airway was taken to prevent airway collapse. Patient was intubated and placed on mechanical ventilator. Initial parameters were VT 500, RR 22, FiO2 55%, peep 10. Patient was started on methylprednisolone 60 mg b.i.d., sedation. Prophylactic dose of enoxaparin. Patient was admitted for further assessment and management. Patient seen and examined at bedside. Patient is sedated and intubated on the following Mechanical ventilator story settings: VT 500, if 20, FiO2 45%, peep 5 sat 94%. Today's chest x-ray was reviewed showing increased opacities on left lower lobe compared to previous x-rays. ABG was reviewed showing a PaO2 in the lower 60s. Patient still having hypernatremia at 153 despite of getting 500 cc of D5W yesterday and flushes of 250 cc of purified water. Upon my examination, bilateral lung sounds grossly clear with minimal decreased sounds in the lung bases. We will continue IV Zosyn and doxycycline. We will continue methylprednisolone 40 mg IV b.i.d. we will do focus at bedside to have a better overview of lung bases. ROS unable to obtain due to patient's current status sedated and intubated. Objective vital signs Vital Sign Date Time Temp Pulse Resp B/P (MAP) Pulse Ox O2 Delivery O2 Flow Rate FiO2 06/18/24 10:30 98.8 64 20 123/77 (92) 94 209.8 06/18/24 10:17 40 06/18/24 10:00 Mechanical Ventilator 20.0 Total Intake and Output 06/17/24 06/17/24 06/18/24 15:00 23:00 07:00 Intake Total 327 ml 1133 ml 755.0 ml Output Total 850 ml 650 ml Balance 327 ml 283 ml 105.0 ml medications Current Medications Medications Dose Ordered Sig/Maday Route Start Time Stop Time Status Last Admin Dose Admin Midazolam HCl 50 ml @ 1 mls/hr Q24H IV 06/09/24 03:15 06/18/24 09:32 9 MLS/HR Ondansetron HCl 4 mg Q4HP PRN IV 06/09/24 08:00 Enoxaparin Sodium 40 mg DAILY SC 06/09/24 10:00 06/18/24 09:30 40 MG Hydralazine HCl 10 mg Q6HP PRN IV 06/09/24 08:00 06/11/24 17:39 10 MG Aspirin 81 mg DAILY PO 06/10/24 10:00 06/18/24 09:31 81 MG Atorvastatin Calcium 40 mg HS PO 06/09/24 22:00 06/17/24 21:45 40 MG Pantoprazole Sodium 40 mg DAILY IV 06/09/24 10:00 06/18/24 09:30 40 MG Albuterol 2.5 mg Q6HR NEB 06/09/24 12:00 06/18/24 06:11 2.5 MG Ipratropium [place] 0.5 mg Q6HR NEB 06/09/24 12:00 06/18/24 06:11 0.5 MG Piperacillin Sod/ Tazobactam Sod 100 ml @ 25 mls/hr Q8HR IV 06/10/24 17:00 06/18/24 05:56 25 MLS/HR Fentanyl Citrate 250 ml @ 2.5 mls/hr Q24H IV 06/10/24 17:45 06/18/24 06:45 12.5 MLS/HR Amlodipine Besylate 10 mg DAILY PO 06/11/24 08:15 06/18/24 09:31 10 MG Norepinephrine Bitartrate 250 ml @ 3.75 mls/hr Q24H IV 06/11/24 19:00 Acetylcysteine 100 mg Q6HR NEB 06/12/24 12:00 06/18/24 06:11 100 MG Enteral Nutritional Formula 1,000 ml 30ML/HR GT 06/12/24 13:15 06/16/24 23:19 1,000 ML Doxycycline Monohydrate 100 mg Q12HR PO 06/13/24 22:00 06/18/24 09:30 100 MG Sodium Chloride 10 ml QSHIFT@10,22 IV 06/14/24 10:00 06/18/24 09:31 10 ML Acetaminophen 650 mg Q6HP PRN GT 06/16/24 20:30 Purified Water 250 ml Q6HR GT 06/17/24 12:00 06/18/24 05:56 250 ML Methylprednisolone Sodium Succinate 40 mg BID IV 06/17/24 10:00 06/18/24 09:30 40 MG Examination Physical Examination General: Patient sedated and intubated on the following parameters VT 500, RR 20, FiO2 45, peep 5 HEENT: Normocephalic, atraumatic, moist mucous membranes Respiratory/pulmonary: Clear lungs bilaterally,there are bilateral secretion sounds. no associated crackles or wheezes. Cardiovascular: Normal heart sounds S1 and S2 with no associated murmurs Abdomen: Abdomen nondistended, there is no pain to palpation in any of the abdominal quadrants, no palpable masses. Extremities: There is no peripheral edema present at the lower extremities. Peripheral Pulses: 3+ Radial (R). 3+ Radial (L). 3+ Dorsalis pedis (R). 3+ Dorsalis pedis(L) Skin: No rashes or pruritus, there is no sacral edema present at this time. Neurological: Sedated currently RASS -3 laboratory and microbiology Laboratory Tests 06/18/24 03:20 Test 06/18/24 03:20 Range/Units Serum Glucose 124 H 74-106 mg/dL Microbiology Date/Time Source Procedure Growth Status 06/16/24 23:54 Blood Blood Culture - Preliminary NO GROWTH AFTER 24 HOURS OF INCUBATION. Resulted 06/13/24 21:48 Sputum Gram Stain - Final Complete 06/13/24 21:48 Sputum Respiratory Culture - Final Complete 06/10/24 18:10 Nose MRSA Screen - Final Complete Problem List/Assessment/Plan Problem List/Assessment/Plan Assessment/Plan Acute anaphylactic reaction, unkown source Acute angioedema SIRS with endorgan damage DI Acute hypoxic respiratory failure likely due to above -patient was having facial swelling, tongue, throat swelling and decision was to intubate to protect airway -patient is currently intubated on the following mechanical ventilatory settings: VT 500, RR 20, FiO2 35%, peep 6 -monitor ABG -continue methylprednisolone to 40 mg IV b.i.d. -sedated on propofol, Versed. Analgesia with fentanyl -keep saturation above 92% -bronchoscopy was performed yesterday on 06/16/2024, no complications, bilateral mucus plugs were removed from right and left lower lobes of the lung. -there was no air leak present at this time. We will give a single dose of Decadron 6 mg IV and increase methylprednisolone to 40mg b.i.d. -chest x-ray today was reviewed and is showing increased opacities on left lower lobe compared to previous x-ray. Sepsis due to possible aspiration pneumonia POA Possible aspiration pneumonitis not present on admission -Continue on IV zosyn -Continue doxycycline -Monitor Chest xrays 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% -echocardiogram showed LVEF of 45% with apical wall abnormalities and hypokinesis -EKG showed sinus rhythm with right bundle branch block and T-wave inversion in all leads -troponins were elevated -Discontinue bumex to 2 mg BID Acute hypernatremia -D5W 500cc IV fluids were given -Na 153, will continue monitoring electrolytes NSTEMI type 2 likely due to above -trend troponins -cardiology on the case DI likely due to vasomotor nephropathy -creatinine was 1.03, Cr 1.24 -we will monitor kidney function closely -hold Nirav or arbs at this time Primary hypertension -blood pressure on normal range at this time -patient sedated and intubated, not needing vasopressor at this time Dyslipidemia -continue atorvastatin 40 mg daily Morbid obesity Grade III -Lifestyle modification Will place PICC line. Goals of care discussed with daughter by phone for >25min, FULL CODE Critical time spent >47min Plan discussed with Dr. Marcial Plan discussed with: Daughter My Orders My Orders Orders - CHRIS JOSE RESIDENT Procedure Category Date Status Time Sodium LAB 06/18/24 Logged 10:57 Dietary Evaluation Review Comments: 1. Recommend Vital HP while on high-dose propofol; begin @ 10 ml/hr, advance by 10 ml Q4 or as tolerated to goal-rate of 50 ml/hr continuously 2. Provide minimal free water flushes for tube patency of 30 ml Q6 (120 ml total); adjust PRN 3. Monitor BMP/lytes and replete per protocol TF Provision: TF at goal to provide 1200 ml total volume, 1200 kcal (+562 via propofol = 1762 kcal), 105 gm pro, 0 gm fiber, 1103 ml H20 (meets 100% est. kcal needs, 100% est. pro needs) Expected Outcomes/Goals: Adequate nutrition, weight maintenance, improved hemodynamic stability. Date of Service: Jun 18, 2024 Billing Provider: LISSETTE MARCIAL MD Common Visit Codes: 15311-TYFKASTL CARE 30-74 MIN CHRIS JOSE RESIDENT Jun 18, 2024 11:25 LISSETTE MACRIAL MD Jun 18, 2024 21:36
[2024-06-18] MEDS: D5W/SOD CHL 0.45% 1,000 ML IV ONE (18:30)
--- NOTE | 2024-06-18 22:40 | DVHPN2 ---
Progress Note - Dictate Date Seen: Jun 18, 2024 Has the PT tested + for MRSA If YES, has PT been informed?: No Medical Necessity Reason Pt with a Central, PICC or Fol: Yes The following are medically ne: Bae Catheter Reason for bae catheter: Strict I&O Subjective Patient seen and examined at bedside. Sedated, intubated on mechanical ventilator. Overnight events reviewed. vital signs Vital Sign Date Time Temp Pulse Resp B/P (MAP) Pulse Ox O2 Delivery O2 Flow Rate FiO2 06/18/24 21:45 98.6 56 20 130/86 (101) 97 209.5 06/18/24 20:00 Mechanical Ventilator+ 40 40 06/18/24 10:00 20.0 Total Intake and Output 06/17/24 06/17/24 06/18/24 15:00 23:00 07:00 Intake Total 327 ml 1133 ml 755.0 ml Output Total 850 ml 650 ml Balance 327 ml 283 ml 105.0 ml medications Current Medications Medications Dose Ordered Sig/Maday Route Start Time Stop Time Status Last Admin Dose Admin Midazolam HCl 50 ml @ 1 mls/hr Q24H IV 06/09/24 03:15 06/18/24 21:06 8 MLS/HR Ondansetron HCl 4 mg Q4HP PRN IV 06/09/24 08:00 Enoxaparin Sodium 40 mg DAILY SC 06/09/24 10:00 06/18/24 09:30 40 MG Hydralazine HCl 10 mg Q6HP PRN IV 06/09/24 08:00 06/11/24 17:39 10 MG Aspirin 81 mg DAILY PO 06/10/24 10:00 06/18/24 09:31 81 MG Atorvastatin Calcium 40 mg HS PO 06/09/24 22:00 06/18/24 21:41 40 MG Pantoprazole Sodium 40 mg DAILY IV 06/09/24 10:00 06/18/24 09:30 40 MG Albuterol 2.5 mg Q6HR NEB 06/09/24 12:00 06/18/24 18:38 2.5 MG Ipratropium [place] 0.5 mg Q6HR NEB 06/09/24 12:00 06/18/24 18:38 0.5 MG Piperacillin Sod/ Tazobactam Sod 100 ml @ 25 mls/hr Q8HR IV 06/10/24 17:00 06/18/24 21:41 25 MLS/HR Fentanyl Citrate 250 ml @ 2.5 mls/hr Q24H IV 06/10/24 17:45 06/18/24 06:45 12.5 MLS/HR Amlodipine Besylate 10 mg DAILY PO 06/11/24 08:15 06/18/24 09:31 10 MG Norepinephrine Bitartrate 250 ml @ 3.75 mls/hr Q24H IV 06/11/24 19:00 Acetylcysteine 100 mg Q6HR NEB 06/12/24 12:00 06/18/24 18:38 100 MG Enteral Nutritional Formula 1,000 ml 30ML/HR GT 06/12/24 13:15 06/16/24 23:19 1,000 ML Doxycycline Monohydrate 100 mg Q12HR PO 06/13/24 22:00 06/18/24 21:41 100 MG Sodium Chloride 10 ml QSHIFT@10,22 IV 06/14/24 10:00 06/18/24 21:41 10 ML Acetaminophen 650 mg Q6HP PRN GT 06/16/24 20:30 Purified Water 250 ml Q6HR GT 06/17/24 12:00 06/18/24 18:03 250 ML Methylprednisolone Sodium Succinate 40 mg BID IV 06/17/24 10:00 06/18/24 21:41 40 MG objective Gen.: Patient lying in bed in medical ICU. Sedated, intubated on mechanical ventilator. Head: Normocephalic, atraumatic. Eyes: PERRLA. Ears: Normal external anatomy. Throat: Endotracheal tube and orogastric tube in place. Neck: Supple, trachea midline. Chest: Transmitted breath sounds bilaterally. Decreased air entry bilaterally. No wheezing. Bibasilar crackles. Cardiovascular: Positive S1, positive S2. Regular rate and rhythm. Abdomen: Positive bowel sounds in all 4 quadrants. Soft, nontender, nondistended. : Bae in place. Normal external genitalia. Rectal: Deferred. Skin: Warm, dry. Intact. Extremities: 2+ radial pulses bilaterally. No lower extremity edema. Neuro: Sedated. laboratory and microbiology Laboratory Tests 06/18/24 13:14 06/18/24 03:20 Test 06/18/24 03:20 Range/Units Serum Glucose 124 H 74-106 mg/dL Assessment/Plan Impression: Acute hypoxic respiratory failure On mechanical ventilator Acute anaphylactic reaction, angioedema Possible aspiration pneumonia Congestive heart failure NSTEMI type 2 Acute kidney injury Morbid obesity Events: Remains on vent support On AC mode; RR 20, VT 500, PEEP 5, FiO2 40% Sedated on Versed, Fentanyl Continue antibiotics. Tube feeds for nutritional support IV fluids at 75 ml/hr. Ordered x-ray neck to rule out foreign body Taper sedation as tolerated. Plan for CPAP in the AM S/p therapeutic bronchoscopy w/ BAL on 06/16/24 - cleared mucous plugging from L6-L10 and R6-R10 See separate procedure note for details ABG reviewed, notable for alkalemia. CXR notable for Mild congestive heart failure. Labs and imaging reviewed. Rest of plan as noted below. Plan: s/p intubation on mechanical ventilator. On AC mode; RR 20, VT 500, PEEP 5, FiO2 40% Titrate FIO2 to keep O2 saturation above 90%. VAP bundle. Daily ABG and CXR while intubated Sedate for ventilator synchrony Continue antibiotics. Tube feeds for nutritional support Pressors as necessary for hemodynamic support Titrate to keep mean arterial pressure greater than 65 mmHg. Monitor renal function Monitor electrolytes. Supplement as necessary. Monitor ins and outs. Taper sedation as tolerated CPAP with PS 8, PEEP of 5. Precedex drip OK if necessary. Diet and lifestyle modifications for weight reduction Morbid obesity complicates all care GI prophylaxis. DVT prophylaxis. Prognosis: Poor given patient's multiple co-morbidities. Condition: Critical Rest of plan per hospitalist and other consultants. A total of 35 minutes of critical care time was spent reviewing the patient record, examining the patient, making a diagnostic and therapeutic plan, discussing this plan with the medical personnel, following up on diagnostic studies and following the patient for clinical stability excluding any and all procedures. At least 50% of this time was spent in direct, [id number] contact. Thank you Dr. Lea for allowing me to participate in this patient's care. Further recommendations will depend on the patient's clinical course. Please do not hesitate to contact me if you have any questions or concerns. This medical document was created using an electronic medical record system with [employer] system. Although these documentations are being carefully reviewed, there may still be some phonetic and typographical changes. The errors are purely typographical, due to imperfection on the software program, and do not reflect any compromise in the patient's medical care. Dietary Evaluation Review Comments: 1. Recommend Vital HP while on high-dose propofol; begin @ 10 ml/hr, advance by 10 ml Q4 or as tolerated to goal-rate of 50 ml/hr continuously 2. Provide minimal free water flushes for tube patency of 30 ml Q6 (120 ml total); adjust PRN 3. Monitor BMP/lytes and replete per protocol TF Provision: TF at goal to provide 1200 ml total volume, 1200 kcal (+562 via propofol = 1762 kcal), 105 gm pro, 0 gm fiber, 1103 ml H20 (meets 100% est. kcal needs, 100% est. pro needs) Expected Outcomes/Goals: Adequate nutrition, weight maintenance, improved hemodynamic stability. Plan discussed with: Other (MITESH Quiñonez) Critical Care Time(min): 35 ESPERANZA ISABEL MD Jun 18, 2024 22:40
--- NOTE | 2024-06-18 23:28 | DVH ---
Procedure: XY NECK FOR SOFT TISSUE Exam Date: 06/18/2024 10:46 PM History: foreign object Comparison Study: None available at time of dictation. Technique: Soft Tissue Neck: AP and lateral views. Findings: There is is no evidence for radiopaque foreign body in the neck. Right-sided PICC line tip is at the right subclavian superior vena cava junction. Nasogastric tube is far too low . It is in the bifurcation and should be pulled back at least 3 cm. Nasogastric tube appears to be in the stomach. There is cardiomegaly and bilateral pleural effusions. IMPRESSION: 1. PICC line tip is at the right subclavian superior vena cava junction. Endotracheal tube should be pulled back 3 cm. No radiopaque foreign body is seen. Heart size consistent with cardiomegaly there is bilateral pleura l effusions
[2024-06-19] VITALS (107 sets, daily range): BP systolic 100–163; BP diastolic 63–102; PULSE 50–98; RESP 15–30; TEMP 97.2–99; O2SAT 89–100
--- NOTE | 2024-06-19 04:12 | DVH ---
CHEST RADIOGRAPH Indication: reeval left lower lung base Technique: Frontal view of the chest. Comparison: XY CHEST XRAY 1 VIEW on DOS: 06/18/24, XY CHEST XRAY 1 VIEW on DOS: 06/17/24, XY CHEST XRAY 1 VIEW on DOS: 06/16/24, XY CHEST XRAY 1 VIEW on DOS: 06/15/24, XY CHEST XRAY 1 VIEW on DOS: 06/14/24, XY CHEST XRAY 1 VIEW on DOS: 06/18/24 FINDINGS: LUNGS AND PLEURAL SPACES: Mild congestive heart failure. No consolidation. No pneumothorax. HEART: Unremarkable. No cardiomegaly. MEDIASTINUM: Unremarkable. Normal mediastinal contour. BONES/JOINTS: Unremarkable. No acute fracture. TUBES, LINES AND DEVICES: Right peripherally inserted central catheter (PICC) tip in the superior v terell cava. The endotracheal tube (ETT) is in satisfactory position. Enteric tube tip in the stomach. IMPRESSION: Mild congestive heart failure.
[2024-06-19 04:24] LABS: Basophils # (auto) 0 10 ^3/uL (0-0.2); Basophils % (auto) 0.1 % (0.0-2.0); Eosinophils # (auto) 0 10 ^3/uL (0-0.8); Hematocrit 42.3 % (36.0-46.0); Hemoglobin 13.6 g/dL (12.2-16.2); Lymphocytes # (auto) 0.9 10 ^3/uL (0.4-5.4); Lymphocytes % (auto) 6.4 % (10.0-50.0); Mean Corpuscular Hemoglobin 26.1 pg (28.0-32.0); Mean Corpuscular Hgb Conc. 32.2 g/dL (32.0-36.0); Monocytes # (auto) 0.7 10 ^3/uL (0-1.3); Monocytes % (auto) 4.9 % (0.0-12.0); Neutrophils # (auto) 12.1 10 ^3/uL (1.6-8.6); Neutrophils % (auto) 88.6 % (37.0-80.0); Nucleated Red Blood Cells % 0.1 %; Platelet Count (auto) 277 10^3/uL (140-450); Red Blood Cells 5.21 10^6/uL (4.0-5.20); Red Cell Distribution Width 17.5 % (11.8-14.3); White Blood Cell 13.7 10^3/uL (4.4-10.8)
[2024-06-19 04:39] LABS: Potassium 3.5 mmol/L (3.5-5.1)
[2024-06-19 04:40] LABS: Anion Gap 12 (5-15); Carbon Dioxide 25 mmol/L (20-31)
[2024-06-19 04:41] LABS: Calcium 10.6 mg/dL (8.7-10.4); Chloride 111 mmol/L (98-107); Sodium 148 mmol/L (136-145)
[2024-06-19 04:45] LABS: BUN/Creatinine Ratio 34.3 (10.0-20.0)
[2024-06-19 04:46] LABS: Blood Urea Nitrogen 47 mg/dL (9-23); Glucose 156 mg/dL (74-106); Magnesium 2.4 mg/dL (1.6-2.6)
[2024-06-19 08:03] LABS: Base Excess -0.3 mmol/L (-2.0-3.0)
--- NOTE | 2024-06-19 11:17 | DVHPNRES ---
Progress Note Date Seen: Jun 19, 2024 Resident Creating Document: CHRIS JOSE RESIDENT Has the PT tested + for MRSA If YES, has PT been informed?: No Medical Necessity Reason Pt with a Central, PICC or Fol: Yes The following are medically ne: Bae Catheter Reason for bae catheter: Strict I&O Subjective Review of Systems This is a 63-year-old female with past medical history of hypertension and morbid obesity grade 3, who presented to the ED with chief complaint of allergic reaction. Upon admission, the patient was complaining of mild shortness of breath, facial swelling, tongue swelling, throat swelling and wheezes. Patient was evaluated by the ED staff and decision to secure airway was taken to prevent airway collapse. Patient was intubated and placed on mechanical ventilator. Initial parameters were VT 500, RR 22, FiO2 55%, peep 10. Patient was started on methylprednisolone 60 mg b.i.d., sedation. Prophylactic dose of enoxaparin. Patient was admitted for further assessment and management. Patient seen and examined at bedside. Patient is being weaned off sedation for CPAP trial this morning, still intubated on minimal ventilatory settings: VT 500, if 20, FiO2 35%, PEEP 5 saturating 96%. ABG were reviewed this morning showing no Acid base disturbances and PaO2 was around 68. Patient still sedated and not responding but he has been weaning off sedation. We will try CPAP trial at noon once sedation has been weaned off little more. Chest x-ray today is looking slightly more clear compared to previous x-rays. Discussed with Cardiology regarding the possibility of left heart catheterization but stated that it might be an allergic reaction from the anaphylaxis and angioedema. Cardiology does not consider necessary any further procedure at this time. ROS unable to obtain due to patient being intubated. Objective vital signs Vital Sign Date Time Temp Pulse Resp B/P (MAP) Pulse Ox O2 Delivery O2 Flow Rate FiO2 06/19/24 10:00 96 Mechanical Ventilator 06/19/24 10:00 76 06/19/24 10:00 35 06/19/24 10:00 98.8 21 148/82 (104) 209.8 06/18/24 10:00 20.0 Total Intake and Output 06/18/24 06/18/24 06/19/24 15:00 23:00 07:00 Intake Total 281.5 ml 1179.0 ml 1051.888 ml Output Total 650 ml 700 ml Balance 281.5 ml 529.0 ml 351.888 ml medications Current Medications Medications Dose Ordered Sig/Maday Route Start Time Stop Time Status Last Admin Dose Admin Midazolam HCl 50 ml @ 1 mls/hr Q24H IV 06/09/24 03:15 06/18/24 21:06 8 MLS/HR Ondansetron HCl 4 mg Q4HP PRN IV 06/09/24 08:00 Enoxaparin Sodium 40 mg DAILY SC 06/09/24 10:00 06/19/24 09:53 40 MG Hydralazine HCl 10 mg Q6HP PRN IV 06/09/24 08:00 06/11/24 17:39 10 MG Aspirin 81 mg DAILY PO 06/10/24 10:00 06/19/24 09:54 81 MG Atorvastatin Calcium 40 mg HS PO 06/09/24 22:00 06/18/24 21:41 40 MG Pantoprazole Sodium 40 mg DAILY IV 06/09/24 10:00 06/19/24 09:53 40 MG Albuterol 2.5 mg Q6HR NEB 06/09/24 12:00 06/19/24 06:09 2.5 MG Ipratropium [place] 0.5 mg Q6HR NEB 06/09/24 12:00 06/19/24 06:10 0.5 MG Piperacillin Sod/ Tazobactam Sod 100 ml @ 25 mls/hr Q8HR IV 06/10/24 17:00 06/19/24 05:41 25 MLS/HR Fentanyl Citrate 250 ml @ 2.5 mls/hr Q24H IV 06/10/24 17:45 06/19/24 01:15 12.5 MLS/HR Amlodipine Besylate 10 mg DAILY PO 06/11/24 08:15 06/19/24 09:54 10 MG Norepinephrine Bitartrate 250 ml @ 3.75 mls/hr Q24H IV 06/11/24 19:00 Acetylcysteine 100 mg Q6HR NEB 06/12/24 12:00 06/19/24 06:10 100 MG Enteral Nutritional Formula 1,000 ml 30ML/HR GT 06/12/24 13:15 06/16/24 23:19 1,000 ML Doxycycline Monohydrate 100 mg Q12HR PO 06/13/24 22:00 4/23/25 09:54 100 MG Sodium Chloride 10 ml QSHIFT@10,22 IV 06/14/24 10:00 06/19/24 09:55 10 ML Acetaminophen 650 mg Q6HP PRN GT 06/16/24 20:30 Purified Water 250 ml Q6HR GT 06/17/24 12:00 06/19/24 00:00 250 ML Methylprednisolone Sodium Succinate 40 mg BID IV 06/17/24 10:00 06/19/24 09:53 40 MG Examination Physical Examination General: Patient is been weaned off sedation and intubated on the following parameters VT 500, RR 20, FiO2 35%, peep 5 HEENT: Normocephalic, atraumatic, moist mucous membranes Respiratory/pulmonary: Clear lungs bilaterally,there are bilateral secretion sounds. no associated crackles or wheezes. Cardiovascular: Normal heart sounds S1 and S2 with no associated murmurs Abdomen: Abdomen nondistended, there is no pain to palpation in any of the abdominal quadrants, no palpable masses. Extremities: There is no peripheral edema present at the lower extremities. Peripheral Pulses: 3+ Radial (R). 3+ Radial (L). 3+ Dorsalis pedis (R). 3+ Dorsalis pedis(L) Skin: No rashes or pruritus, there is no sacral edema present at this time. Neurological: Sedated currently RASS -1 laboratory and microbiology Laboratory Tests 06/19/24 03:00 Test 06/19/24 03:00 Range/Units Serum Glucose 156 H 74-106 mg/dL Microbiology Date/Time Source Procedure Growth Status 06/16/24 23:54 Blood Blood Culture - Preliminary NO GROWTH AFTER 48 HOURS OF INCUBATION. Resulted 06/16/24 22:10 Bronchial Washings Gram Stain Pending Resulted 06/16/24 22:10 Bronchial Washings Respiratory Culture - Preliminary Resulted 06/10/24 18:10 Nose MRSA Screen - Final Complete Problem List/Assessment/Plan Problem List/Assessment/Plan Assessment/Plan Acute anaphylactic reaction, unkown source Acute angioedema Sepsis with acute organ dysfunction kidney Acute hypoxic respiratory failure likely due to above -patient was having facial swelling, tongue, throat swelling and decision was to intubate to protect airway -patient is currently intubated on the following mechanical ventilatory settings: VT 500, RR 20, FiO2 35%, peep 6 -monitor ABG -continue methylprednisolone to 40 mg IV b.i.d. -sedated on propofol, Versed. Analgesia with fentanyl -keep saturation above 92% -bronchoscopy was performed yesterday on 06/16/2024, no complications, bilateral mucus plugs were removed from right and left lower lobes of the lung. -there was no air leak present at this time. We will give a single dose of Decadron 6 mg IV and increase methylprednisolone to 40mg b.i.d. -chest x-ray today was reviewed and is showing less opacities in the left lower lung compared to previous x-ray Sepsis due to possible aspiration pneumonia POA Possible aspiration pneumonitis not present on admission -Continue on IV zosyn -Continue doxycycline -Monitor Chest xrays -Patient is been weaned off sedation for CPAP trial -Will try CPAP TRIAL today at noon 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% -echocardiogram showed LVEF of 45% with apical wall abnormalities and hypokinesis -EKG showed sinus rhythm with right bundle branch block and T-wave inversion in all leads -troponins were elevated -Discontinue bumex to 2 mg BID Acute hypernatremia -D5W 500cc IV fluids were given -Na 153, now 148, slightly improving NSTEMI type 2 likely due to above -trend troponins -cardiology on the case DI likely due to vasomotor nephropathy -creatinine was 1.03, Cr 1.37 -we will monitor kidney function closely -hold Nirav or arbs at this time Primary hypertension -blood pressure on normal range at this time -patient sedated and intubated, not needing vasopressor at this time Dyslipidemia -continue atorvastatin 40 mg daily Morbid obesity Grade III -Lifestyle modification Will place PICC line. Goals of care discussed with daughter by phone for >20min, FULL CODE Critical time spent >41min Plan discussed with Dr. Marcial Plan discussed with: Daughter My Orders My Orders Orders - CHRIS JOSE Procedure Category Date Status Time Chest Xray 1 View XY 06/19/24 Resulted 04:00 Abg W/ Co-Ox RT 06/19/24 Logged 04:00 Urine Bacterial CRYSTAL 06/18/24 In Process Culture 14:50 * Cardiology Consult CONS 06/18/24 Transmitted 18:02 Dietary Evaluation Review Comments: 1. Recommend Vital HP while on high-dose propofol; begin @ 10 ml/hr, advance by 10 ml Q4 or as tolerated to goal-rate of 50 ml/hr continuously 2. Provide minimal free water flushes for tube patency of 30 ml Q6 (120 ml total); adjust PRN 3. Monitor BMP/lytes and replete per protocol TF Provision: TF at goal to provide 1200 ml total volume, 1200 kcal (+562 via propofol = 1762 kcal), 105 gm pro, 0 gm fiber, 1103 ml H20 (meets 100% est. kcal needs, 100% est. pro needs) Expected Outcomes/Goals: Adequate nutrition, weight maintenance, improved hemodynamic stability. Date of Service: Jun 19, 2024 Billing Provider: LISSETTE MARCIAL MD Common Visit Codes: [id number] INP/OBS CARE(MOD) CHRIS JOSE RESIDENT Jun 19, 2024 11:17 LISSETTE MARCIAL MD Jun 19, 2024 21:11
--- NOTE | 2024-06-19 22:23 | DVHPN2 ---
Progress Note - Dictate Date Seen: Jun 19, 2024 Has the PT tested + for MRSA If YES, has PT been informed?: No Medical Necessity Reason Pt with a Central, PICC or Fol: Yes The following are medically ne: Bae Catheter Reason for bae catheter: Strict I&O Subjective Patient seen and examined at bedside Intubated on mechanical ventilator. Overnight events reviewed. vital signs Vital Sign Date Time Temp Pulse Resp B/P (MAP) Pulse Ox O2 Delivery O2 Flow Rate FiO2 06/19/24 20:05 74 22 133/81 (98) 93 40 06/19/24 18:45 98.2 208.8 06/19/24 18:14 Mechanical Ventilator+ 06/18/24 10:00 20.0 Total Intake and Output 06/18/24 06/18/24 06/19/24 15:00 23:00 07:00 Intake Total 281.5 ml 1179.0 ml 1051.888 ml Output Total 650 ml 700 ml Balance 281.5 ml 529.0 ml 351.888 ml medications Current Medications Medications Dose Ordered Sig/Maday Route Start Time Stop Time Status Last Admin Dose Admin Midazolam HCl 50 ml @ 1 mls/hr Q24H IV 06/09/24 03:15 06/18/24 21:06 8 MLS/HR Ondansetron HCl 4 mg Q4HP PRN IV 06/09/24 08:00 Enoxaparin Sodium 40 mg DAILY SC 06/09/24 10:00 06/19/24 09:53 40 MG Hydralazine HCl 10 mg Q6HP PRN IV 06/09/24 08:00 06/19/24 11:13 10 MG Aspirin 81 mg DAILY PO 06/10/24 10:00 06/19/24 09:54 81 MG Atorvastatin Calcium 40 mg HS PO 06/09/24 22:00 06/18/24 21:41 40 MG Pantoprazole Sodium 40 mg DAILY IV 06/09/24 10:00 06/19/24 09:53 40 MG Albuterol 2.5 mg Q6HR NEB 06/09/24 12:00 06/19/24 18:13 2.5 MG Ipratropium [place] 0.5 mg Q6HR NEB 06/09/24 12:00 06/19/24 18:13 0.5 MG Piperacillin Sod/ Tazobactam Sod 100 ml @ 25 mls/hr Q8HR IV 06/10/24 17:00 06/19/24 14:00 25 MLS/HR Amlodipine Besylate 10 mg DAILY PO 06/11/24 08:15 06/19/24 09:54 10 MG Norepinephrine Bitartrate 250 ml @ 3.75 mls/hr Q24H IV 06/11/24 19:00 Acetylcysteine 100 mg Q6HR NEB 06/12/24 12:00 06/19/24 18:13 100 MG Enteral Nutritional Formula 1,000 ml 30ML/HR GT 06/12/24 13:15 06/16/24 23:19 1,000 ML Doxycycline Monohydrate 100 mg Q12HR PO 06/13/24 22:00 06/19/24 09:54 100 MG Sodium Chloride 10 ml QSHIFT@10,22 IV 06/14/24 10:00 06/19/24 09:55 10 ML Acetaminophen 650 mg Q6HP PRN GT 06/16/24 20:30 Purified Water 250 ml Q6HR GT 06/17/24 12:00 06/19/24 18:19 250 ML Methylprednisolone Sodium Succinate 40 mg BID IV 06/17/24 10:00 06/19/24 09:53 40 MG objective Gen.: Patient lying in bed in medical ICU. Intubated on mechanical ventilator. Head: Normocephalic, atraumatic. Eyes: PERRLA. Ears: Normal external anatomy. Throat: Endotracheal tube and orogastric tube in place. Neck: Supple, trachea midline. Chest: Transmitted breath sounds bilaterally. Decreased air entry bilaterally. No wheezing. Bibasilar crackles. Cardiovascular: Positive S1, positive S2. Regular rate and rhythm. Abdomen: Positive bowel sounds in all 4 quadrants. Soft, nontender, nondistended. : Bae in place. Normal external genitalia. Rectal: Deferred. Skin: Warm, dry. Intact. Extremities: 2+ radial pulses bilaterally. No lower extremity edema. Neuro: Off sedation laboratory and microbiology Laboratory Tests 06/19/24 03:00 Test 06/19/24 03:00 Range/Units Serum Glucose 156 H 74-106 mg/dL Assessment/Plan Impression: Acute hypoxic respiratory failure On mechanical ventilator Acute anaphylactic reaction, angioedema Possible aspiration pneumonia Congestive heart failure NSTEMI type 2 Acute kidney injury Morbid obesity Events: Remains on vent support On AC mode; RR 20, VT 500, PEEP 5, FiO2 40% Off Versed On Precedex and Fentanyl Continue antibiotics. Monitor WBC - 13.7 K Continue IV steroids Mucomyst Tube feeds for nutritional support. On CPAP with PS 16, PEEP of 5 for exercise - tolerating. Minimal secretions via ET tube. X-ray neck showed no foreign body S/p therapeutic bronchoscopy w/ BAL on 06/16/24 - cleared mucous plugging from L6-L10 and R6-R10 See separate procedure note for details ABG reviewed, compensated. CXR notable for mild congestive heart failure. Labs and imaging reviewed. Rest of plan as noted below. Plan: s/p intubation on mechanical ventilator. On AC mode; RR 20, VT 500, PEEP 5, FiO2 40% Titrate FIO2 to keep O2 saturation above 90%. VAP bundle. Daily ABG and CXR while intubated Off sedation Continue antibiotics. Tube feeds for nutritional support Pressors as necessary for hemodynamic support Titrate to keep mean arterial pressure greater than 65 mmHg. Monitor renal function Monitor electrolytes. Supplement as necessary. Monitor ins and outs. SBT/EDIS. Diet and lifestyle modifications for weight reduction Morbid obesity complicates all care GI prophylaxis - Protonix. DVT prophylaxis - Lovenox. Prognosis: Poor given patient's multiple co-morbidities. Condition: Critical Rest of plan per hospitalist and other consultants. A total of 35 minutes of critical care time was spent reviewing the patient record, examining the patient, making a diagnostic and therapeutic plan, discussing this plan with the medical personnel, following up on diagnostic studies and following the patient for clinical stability excluding any and all procedures. At least 50% of this time was spent in direct, [id number] contact. Thank you Dr. Lea for allowing me to participate in this patient's care. Further recommendations will depend on the patient's clinical course. Please do not hesitate to contact me if you have any questions or concerns. This medical document was created using an electronic medical record system with [employer] system. Although these documentations are being carefully reviewed, there may still be some phonetic and typographical changes. The errors are purely typographical, due to imperfection on the software program, and do not reflect any compromise in the patient's medical care. Dietary Evaluation Review Comments: 1. Recommend Vital HP while on high-dose propofol; begin @ 10 ml/hr, advance by 10 ml Q4 or as tolerated to goal-rate of 50 ml/hr continuously 2. Provide minimal free water flushes for tube patency of 30 ml Q6 (120 ml total); adjust PRN 3. Monitor BMP/lytes and replete per protocol TF Provision: TF at goal to provide 1200 ml total volume, 1200 kcal (+562 via propofol = 1762 kcal), 105 gm pro, 0 gm fiber, 1103 ml H20 (meets 100% est. kcal needs, 100% est. pro needs) Expected Outcomes/Goals: Adequate nutrition, weight maintenance, improved hemodynamic stability. Plan discussed with: Patient, Other (MITESH Montero) Critical Care Time(min): 35 ESPERANZA ISABEL MD Jun 19, 2024 22:23
[2024-06-20] VITALS (118 sets, daily range): BP systolic 117–182; BP diastolic 65–126; PULSE 54–111; RESP 12–29; TEMP 96.8–98.6; O2SAT 91–100
[2024-06-20] MEDS: fentaNYL Drip 2500mCg/250mlNS 250 ML IV SCH (02:00)
[2024-06-20 04:15] LABS: Basophils # (auto) 0 10 ^3/uL (0-0.2); Basophils % (auto) 0.2 % (0.0-2.0); Eosinophils # (auto) 0 10 ^3/uL (0-0.8); Hemoglobin 13.2 g/dL (12.2-16.2); Lymphocytes # (auto) 0.9 10 ^3/uL (0.4-5.4); Lymphocytes % (auto) 7.3 % (10.0-50.0); Mean Corpuscular Hgb Conc. 32.4 g/dL (32.0-36.0); Monocytes # (auto) 0.5 10 ^3/uL (0-1.3); Nucleated Red Blood Cells % 0.1 %; Red Blood Cells 5.08 10^6/uL (4.0-5.20); White Blood Cell 12.6 10^3/uL (4.4-10.8)
[2024-06-20 04:16] LABS: Anion Gap 13 (5-15); Carbon Dioxide 24 mmol/L (20-31); Potassium 3.6 mmol/L (3.5-5.1)
[2024-06-20 04:17] LABS: Eosinophils % (auto) 0.1 % (0.0-7.0); Hematocrit 40.9 % (36.0-46.0); Mean Corpuscular Hemoglobin 26.1 pg (28.0-32.0); Mean Corpuscular Volume 80.5 fL (80.0-100.0); Monocytes % (auto) 3.7 % (0.0-12.0); Neutrophils # (auto) 11.1 10 ^3/uL (1.6-8.6); Neutrophils % (auto) 88.7 % (37.0-80.0); Platelet Count (auto) 211 10^3/uL (140-450); Red Cell Distribution Width 17.1 % (11.8-14.3)
[2024-06-20 04:22] LABS: BUN/Creatinine Ratio 33.9 (10.0-20.0)
[2024-06-20 04:23] LABS: Magnesium 2.3 mg/dL (1.6-2.6)
[2024-06-20 04:28] LABS: Blood Urea Nitrogen 40 mg/dL (9-23); Calcium 10.5 mg/dL (8.7-10.4); Chloride 114 mmol/L (98-107); Glucose 168 mg/dL (74-106); Sodium 151 mmol/L (136-145)
--- NOTE | 2024-06-20 06:01 | DVH ---
EXAM: XR Chest, 1 View CLINICAL INDICATION: reeval TECHNIQUE: Frontal view of the chest. COMPARISON: XY CHEST XRAY 1 VIEW on DOS: 06/19/24, XY CHEST XRAY 1 VIEW on DOS: 06/18/24, XY CHEST XR AY 1 VIEW on DOS: 06/17/24, XY CHEST XRAY 1 VIEW on DOS: 06/16/24, XY CHEST XRAY 1 VIEW on DOS: 06/15/24 FINDINGS: LUNGS AND PLEURAL SPACES: Pulmonary venous congestion. No consolidation. No pneumothorax. HEART: Unremarkable. No cardiomegaly. MEDIASTINUM: Unremarkable. Normal mediastinal contour. BONES/JOINTS: Unremarkable. No acute fracture. TUBES, LINES AND DEVICES: The endotracheal tube (ETT) is in satisfactory position. Enteric tube ti p cannot be seen but is below the diaphragm. OTHER FINDINGS: . . . IMPRESSION: Pulmonary venous congestion.
[2024-06-20] MEDS: D5W/SOD CHL 0.45% 1,000 ML IV ONE (08:14)
[2024-06-20 10:04] LABS: Base Excess 1.6 mmol/L (-2.0-3.0)
--- NOTE | 2024-06-20 11:53 | DVHPNRES ---
Progress Note Date Seen: Jun 20, 2024 Resident Creating Document: CHRIS JOSE RESIDENT Has the PT tested + for MRSA If YES, has PT been informed?: No Medical Necessity Reason Pt with a Central, PICC or Fol: Yes The following are medically ne: Bae Catheter Reason for bae catheter: Strict I&O Subjective Review of Systems This is a 63-year-old female with past medical history of hypertension and morbid obesity grade 3, who presented to the ED with chief complaint of allergic reaction. Upon admission, the patient was complaining of mild shortness of breath, facial swelling, tongue swelling, throat swelling and wheezes. Patient was evaluated by the ED staff and decision to secure airway was taken to prevent airway collapse. Patient was intubated and placed on mechanical ventilator. Initial parameters were VT 500, RR 22, FiO2 55%, peep 10. Patient was started on methylprednisolone 60 mg b.i.d., sedation. Prophylactic dose of enoxaparin. Patient was admitted for further assessment and management. Patient seen and examined at bedside. Chest X-ray this morning was showing endotracheal tube too close to the ambar which we recommended to retract the ET tube by 2 cm. There is also right-sided lower lobe opacities which could be due to poor penetration. Has been weaned it off sedation for CPAP trial this morning. The patient has been on CPAP trial since 6:00 a.m. and CPAP parameters happen very positive. RSBI 33, NIF -41, VC: 700s, air leak: [phone]. The patient is still having occasional abdominal breathing movements, reason why we want her to continue on CPAP trial longer before extubation. Otherwise patient is hemodinamically stable and no complaints or fever overnight. Will monitor and extubate if possible. ROS unable to uptake due to intubation. Objective vital signs Vital Sign Date Time Temp Pulse Resp B/P (MAP) Pulse Ox O2 Delivery O2 Flow Rate FiO2 06/20/24 11:15 64 20 128/73 (91) 95 35 06/20/24 10:00 98.2 208.8 06/20/24 08:00 Mechanical Ventilator+ 06/18/24 10:00 20.0 Total Intake and Output 06/19/24 06/19/24 06/20/24 15:00 23:00 07:00 Intake Total 1131.378 ml 322.326 ml 261.363 ml Output Total 650 ml Balance 1131.378 ml -327.674 ml 261.363 ml medications Current Medications Medications Dose Ordered Sig/Maday Route Start Time Stop Time Status Last Admin Dose Admin Midazolam HCl 50 ml @ 1 mls/hr Q24H IV 06/09/24 03:15 06/18/24 21:06 8 MLS/HR Ondansetron HCl 4 mg Q4HP PRN IV 06/09/24 08:00 Enoxaparin Sodium 40 mg DAILY SC 06/09/24 10:00 06/20/24 09:18 40 MG Hydralazine HCl 10 mg Q6HP PRN IV 06/09/24 08:00 06/20/24 09:17 10 MG Aspirin 81 mg DAILY PO 06/10/24 10:00 06/20/24 09:16 81 MG Atorvastatin Calcium 40 mg HS PO 06/09/24 22:00 06/19/24 22:29 40 MG Pantoprazole Sodium 40 mg DAILY IV 06/09/24 10:00 06/20/24 09:17 40 MG Albuterol 2.5 mg Q6HR NEB 06/09/24 12:00 06/20/24 11:24 2.5 MG Ipratropium [place] 0.5 mg Q6HR NEB 06/09/24 12:00 06/20/24 11:24 0.5 MG Piperacillin Sod/ Tazobactam Sod 100 ml @ 25 mls/hr Q8HR IV 06/10/24 17:00 06/20/24 06:30 25 MLS/HR Amlodipine Besylate 10 mg DAILY PO 06/11/24 08:15 06/20/24 09:16 10 MG Norepinephrine Bitartrate 250 ml @ 3.75 mls/hr Q24H IV 06/11/24 19:00 Acetylcysteine 100 mg Q6HR NEB 06/12/24 12:00 06/20/24 11:24 100 MG Enteral Nutritional Formula 1,000 ml 30ML/HR GT 06/12/24 13:15 06/16/24 23:19 1,000 ML Doxycycline Monohydrate 100 mg Q12HR PO 06/13/24 22:00 06/20/24 09:16 100 MG Sodium Chloride 10 ml QSHIFT@10,22 IV 06/14/24 10:00 06/20/24 09:18 10 ML Acetaminophen 650 mg Q6HP PRN GT 06/16/24 20:30 Purified Water 250 ml Q6HR GT 06/17/24 12:00 06/20/24 06:00 250 ML Methylprednisolone Sodium Succinate 40 mg BID IV 06/17/24 10:00 06/20/24 09:16 40 MG Fentanyl Citrate 250 ml @ 2.5 mls/hr Q24H IV 06/20/24 02:00 06/20/24 02:00 5 MLS/HR Examination Physical Examination General: Patient is been weaned off sedation and intubated on the following parameters VT 500, RR 20, FiO2 35%, peep 5 HEENT: Normocephalic, atraumatic, moist mucous membranes Respiratory/pulmonary: Clear lungs bilaterally,there are bilateral secretion sounds. no associated crackles or wheezes. Cardiovascular: Normal heart sounds S1 and S2 with no associated murmurs Abdomen: Abdomen nondistended, there is no pain to palpation in any of the abdominal quadrants, no palpable masses. Extremities: There is no peripheral edema present at the lower extremities. Peripheral Pulses: 3+ Radial (R). 3+ Radial (L). 3+ Dorsalis pedis (R). 3+ Dorsalis pedis(L) Skin: No rashes or pruritus, there is no sacral edema present at this time. Neurological: Sedated currently RASS -1 laboratory and microbiology Laboratory Tests 06/20/24 03:15 Test 06/20/24 03:15 Range/Units Serum Glucose 168 H 74-106 mg/dL Microbiology Date/Time Source Procedure Growth Status 06/16/24 23:54 Blood Blood Culture - Preliminary NO GROWTH AFTER 72 HOURS OF INCUBATION. Resulted 06/16/24 22:10 Bronchial Washings Gram Stain - Final Resulted 06/16/24 22:10 Bronchial Washings Respiratory Culture - Preliminary Resulted 06/10/24 18:10 Nose MRSA Screen - Final Complete Problem List/Assessment/Plan Problem List/Assessment/Plan Assessment/Plan Acute anaphylactic reaction, unkown source Acute angioedema Sepsis with acute organ dysfunction kidney Acute hypoxic respiratory failure likely due to above -patient was having facial swelling, tongue, throat swelling and decision was to intubate to protect airway -patient is currently intubated on the following mechanical ventilatory settings: VT 500, RR 20, FiO2 35%, peep 6 -monitor ABG -continue methylprednisolone to 40 mg IV b.i.d. -sedated on propofol, Versed. Analgesia with fentanyl -keep saturation above 92% -bronchoscopy was performed yesterday on 06/16/2024, no complications, bilateral mucus plugs were removed from right and left lower lobes of the lung. -there was no air leak present at this time. We will give a single dose of Decadron 6 mg IV and increase methylprednisolone to 40mg b.i.d. -chest x-ray today was reviewed and is showing ET tube too close to ambar, we ordered to retract by 2cm. Also showing mild opacities in right lower lobe which could be due to poor penetration. 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% -echocardiogram showed LVEF of 45% with apical wall abnormalities and hypokinesis -EKG showed sinus rhythm with right bundle branch block and T-wave inversion in all leads -troponins were elevated -Discontinue bumex to 2 mg BID Acute hypernatremia -D5W 500cc IV fluids were given -Na 153, now 151, slightly improving NSTEMI type 2 likely due to above -trend troponins -cardiology on the case DI likely due to vasomotor nephropathy -creatinine was 1.03, Cr 1.18 -we will monitor kidney function closely -hold Nirav or arbs at this time Primary hypertension -blood pressure on normal range at this time -patient sedated and intubated, not needing vasopressor at this time Dyslipidemia -continue atorvastatin 40 mg daily Morbid obesity Grade III -Lifestyle modification Will place PICC line. Goals of care discussed with daughter by phone for >20min, FULL CODE Critical time spent >41min Plan discussed with Dr. Tate Plan discussed with: Other My Orders My Orders Orders - CHRIS JOSE RESIDENT Procedure Category Date Status Time Abg W/ Co-Ox RT 06/20/24 Logged 04:00 Chest Xray 1 View XY 06/20/24 Resulted 04:00 Cpap Trial For Am ORDERS 06/19/24 Transmitted 19:41 Fentanyl Drip PHA 06/20/24 In Process 2500mcg/250mlns 02:00 D5w/Sod Chl 0.45% PHA 06/20/24 In Process (D5w 1/2ns) 06:45 Communication Order ORDERS 06/20/24 Transmitted 06:37 Dietary Evaluation Review Comments: 1. Recommend Vital HP while on high-dose propofol; begin @ 10 ml/hr, advance by 10 ml Q4 or as tolerated to goal-rate of 50 ml/hr continuously 2. Provide minimal free water flushes for tube patency of 30 ml Q6 (120 ml total); adjust PRN 3. Monitor BMP/lytes and replete per protocol TF Provision: TF at goal to provide 1200 ml total volume, 1200 kcal (+562 via propofol = 1762 kcal), 105 gm pro, 0 gm fiber, 1103 ml H20 (meets 100% est. kcal needs, 100% est. pro needs) Expected Outcomes/Goals: Adequate nutrition, weight maintenance, improved hemodynamic stability. Date of Service: Jun 20, 2024 Billing Provider: DARION TATE DO Common Visit Codes: [id number] CARE 30-74 MIN, [id number] CARE-EACH +30MIN CHRIS JOSE RESIDENT Jun 20, 2024 11:53 DARION TATE DO Jun 22, 2024 20:44
[2024-06-20] MEDS: EPINEPHrine HCL 0.5 ML NEB ONE ×2 (12:50→13:52)
--- NOTE | 2024-06-20 19:22 | DVHPN2 ---
Progress Note - Dictate Date Seen: Jun 20, 2024 Has the PT tested + for MRSA If YES, has PT been informed?: No Medical Necessity Reason Pt with a Central, PICC or Fol: Yes The following are medically ne: Bae Catheter Reason for bae catheter: Strict I&O Subjective Patient seen and examined at bedside. S/p extubation, on supplemental oxygen Overnight events reviewed. vital signs Vital Sign Date Time Temp Pulse Resp B/P (MAP) Pulse Ox O2 Delivery O2 Flow Rate FiO2 06/20/24 18:45 97.0 77 19 161/95 (117) 97 206.6 06/20/24 18:00 Oxymizer 8 N/A Total Intake and Output 06/19/24 06/19/24 06/20/24 14:59 22:59 06:59 Intake Total 1128.241 ml 282.901 ml 282.6 ml Output Total 650 ml Balance 1128.241 ml -367.099 ml 282.6 ml medications Current Medications Medications Dose Ordered Sig/Maday Route Start Time Stop Time Status Last Admin Dose Admin Midazolam HCl 50 ml @ 1 mls/hr Q24H IV 06/09/24 03:15 06/18/24 21:06 8 MLS/HR Ondansetron HCl 4 mg Q4HP PRN IV 06/09/24 08:00 Hydralazine HCl 10 mg Q6HP PRN IV 06/09/24 08:00 06/20/24 16:54 10 MG Aspirin 81 mg DAILY PO 06/10/24 10:00 06/20/24 09:16 81 MG Atorvastatin Calcium 40 mg HS PO 06/09/24 22:00 06/19/24 22:29 40 MG Pantoprazole Sodium 40 mg DAILY IV 06/09/24 10:00 06/20/24 09:17 40 MG Albuterol 2.5 mg Q6HR NEB 06/09/24 12:00 06/20/24 11:24 2.5 MG Ipratropium [place] 0.5 mg Q6HR NEB 06/09/24 12:00 06/20/24 11:24 0.5 MG Piperacillin Sod/ Tazobactam Sod 100 ml @ 25 mls/hr Q8HR IV 06/10/24 17:00 06/20/24 14:59 25 MLS/HR Amlodipine Besylate 10 mg DAILY PO 06/11/24 08:15 06/20/24 09:16 10 MG Norepinephrine Bitartrate 250 ml @ 3.75 mls/hr Q24H IV 06/11/24 19:00 Acetylcysteine 100 mg Q6HR NEB 06/12/24 12:00 06/20/24 11:24 100 MG Enteral Nutritional Formula 1,000 ml 30ML/HR GT 06/12/24 13:15 06/16/24 23:19 1,000 ML Doxycycline Monohydrate 100 mg Q12HR PO 06/13/24 22:00 06/20/24 09:16 100 MG Sodium Chloride 10 ml QSHIFT@10,22 IV 06/14/24 10:00 06/20/24 09:18 10 ML Acetaminophen 650 mg Q6HP PRN GT 06/16/24 20:30 Purified Water 250 ml Q6HR GT 06/17/24 12:00 06/20/24 12:00 250 ML Methylprednisolone Sodium Succinate 40 mg BID IV 06/17/24 10:00 06/20/24 09:16 40 MG Fentanyl Citrate 250 ml @ 2.5 mls/hr Q24H IV 06/20/24 02:00 06/20/24 02:00 5 MLS/HR Morphine Sulfate 1 mg Q6HP PRN IV 06/20/24 17:30 objective Gen.: Patient lying in bed in no apparent distress. On supplemental oxygen. Head: Normocephalic, atraumatic. Eyes: EOMI/PERRLA. Ears: Normal hearing. Normal anatomy. Neck/trachea: Trachea midline, supple. Nose: Normal external anatomy. Mouth: Moist mucous membranes. Chest: Decreased air entry bilaterally. No wheezing or rhonchi. Minimal stridor Cardiovascular: Positive S1, positive S2. Regular rate and rhythm. Abdomen: Positive bowel sounds in all 4 quadrants. Soft, non-tender, non- distended. : Deferred. Rectal: Deferred. Skin: Warm, dry. Intact. Extremities: 2+ radial pulses bilaterally. No lower extremity edema. Neuro: Awake, alert, oriented x3. No gross motor or sensory deficits. Cranial nerves II through XII intact. Gait not assessed. laboratory and microbiology Laboratory Tests 06/20/24 03:15 Test 06/20/24 03:15 Range/Units Serum Glucose 168 H 74-106 mg/dL Assessment/Plan Impression: Acute hypoxic respiratory failure Mechanical ventilation, s/p extubation Acute anaphylactic reaction, angioedema Possible aspiration pneumonia Congestive heart failure NSTEMI type 2 Acute kidney injury Morbid obesity Events: Off sedation Patient tolerated CPAP Leak close to 200 mL On steroids Patient was successfully extubated with minimal stridor. Racemic epinephrine was given. BiPAP PRN. I was at bedside during extubation Continue antibiotics Monitor WBC Continue IV steroids Mucomyst Pain control Avoid oversedation Tube feeds for nutritional support. S/p therapeutic bronchoscopy w/ BAL on 06/16/24 - cleared mucous plugging from L6-L10 and R6-R10 See separate procedure note for details Labs and imaging reviewed. Rest of plan as noted below. Plan: S/p extubation Supplemental oxygen via Oxymizer Titrate to keep O2 sats above 90%. BiPAP PRN Monitor respiratory status closely Continue antibiotics. IV steroids Tube feeds for nutritional support Pressors as necessary for hemodynamic support Titrate to keep mean arterial pressure greater than 65 mmHg. Monitor renal function Monitor electrolytes. Supplement as necessary. Monitor ins and outs. Diet and lifestyle modifications for weight reduction Morbid obesity complicates all care GI prophylaxis - Protonix. DVT prophylaxis - Lovenox. Prognosis: Poor given patient's multiple co-morbidities. Condition: Critical Rest of plan per hospitalist and other consultants. A total of 35 minutes of critical care time was spent reviewing the patient record, examining the patient, making a diagnostic and therapeutic plan, discussing this plan with the medical personnel, following up on diagnostic studies and following the patient for clinical stability excluding any and all procedures. At least 50% of this time was spent in direct, [id number] contact. Thank you Dr. Lea for allowing me to participate in this patient's care. Further recommendations will depend on the patient's clinical course. Please do not hesitate to contact me if you have any questions or concerns. This medical document was created using an electronic medical record system with [employer] dictation system. Although these documentations are being carefully reviewed, there may still be some phonetic and typographical changes. The errors are purely typographical, due to imperfection on the software program, and do not reflect any compromise in the patient's medical care. Dietary Evaluation Review Comments: 1. Recommend Vital HP while on high-dose propofol; begin @ 10 ml/hr, advance by 10 ml Q4 or as tolerated to goal-rate of 50 ml/hr continuously 2. Provide minimal free water flushes for tube patency of 30 ml Q6 (120 ml total); adjust PRN 3. Monitor BMP/lytes and replete per protocol TF Provision: TF at goal to provide 1200 ml total volume, 1200 kcal (+562 via propofol = 1762 kcal), 105 gm pro, 0 gm fiber, 1103 ml H20 (meets 100% est. kcal needs, 100% est. pro needs) Expected Outcomes/Goals: Adequate nutrition, weight maintenance, improved hemodynamic stability. Plan discussed with: Other (MITESH Montero) Critical Care Time(min): 35 ESPERANZA ISABEL MD Jun 20, 2024 19:22
[2024-06-20] MEDS: ONDANSETRON HCL 4 MG/2 ML VIAL IV PRN (21:57)
[2024-06-20] MEDS: MORPHINE SULFATE INJ 2 MG/ml SYRG IV PRN (21:58)
[2024-06-21] VITALS (111 sets, daily range): BP systolic 124–181; BP diastolic 56–107; PULSE 79–109; RESP 13–36; TEMP 97.6–98.5; O2SAT 86–99
[2024-06-21 03:54] LABS: Hematocrit 44.7 % (36.0-46.0); Red Blood Cells 5.55 10^6/uL (4.0-5.20)
[2024-06-21 03:57] LABS: Hemoglobin 14.5 g/dL (12.2-16.2); Mean Corpuscular Hemoglobin 26.1 pg (28.0-32.0); Mean Corpuscular Hgb Conc. 32.4 g/dL (32.0-36.0); Mean Corpuscular Volume 80.5 fL (80.0-100.0); Platelet Count (auto) 291 10^3/uL (140-450); Red Cell Distribution Width 17.4 % (11.8-14.3); White Blood Cell 19.5 10^3/uL (4.4-10.8)
[2024-06-21 03:59] LABS: Anion Gap 12 (5-15); Carbon Dioxide 23 mmol/L (20-31); Potassium 3.8 mmol/L (3.5-5.1)
[2024-06-21 04:05] LABS: BUN/Creatinine Ratio 31.7 (10.0-20.0); Band Neutrophils % (manual) 0; Basophils % (manual) 0 (0.0-2.0); Blast Cells 0; Metamyelocytes % 0; Myelocytes % 0; Promyelocytes % 0; Reactive Lymphocytes 0
[2024-06-21 04:08] LABS: Blood Urea Nitrogen 33 mg/dL (9-23); Calcium 10.7 mg/dL (8.7-10.4); Chloride 115 mmol/L (98-107); Glucose 137 mg/dL (74-106); Sodium 150 mmol/L (136-145)
[2024-06-21 05:31] LABS: Eosinophils % (manual) 1 (0-7); Lymphocytes % (manual) 16 (10.0-50.0); Monocytes % (manual) 5 (0-12)
[2024-06-21 05:32] LABS: Platelet Estimate Adequate
[2024-06-21] MEDS: D5W/SOD CHL 0.45% 1,000 ML IV ONE (09:26)
[2024-06-21] MEDS: D5W/SOD CHL 0.45% 500 ML IV ONE (09:45)
--- NOTE | 2024-06-21 09:53 | DVHPNRES ---
Progress Note Date Seen: Jun 21, 2024 Resident Creating Document: CHRIS JOSE RESIDENT Has the PT tested + for MRSA If YES, has PT been informed?: No Medical Necessity Reason Pt with a Central, PICC or Fol: Yes The following are medically ne: Bae Catheter Reason for bae catheter: Strict I&O Subjective Review of Systems This is a 63-year-old female with past medical history of hypertension and morbid obesity grade 3, who presented to the ED with chief complaint of allergic reaction. Upon admission, the patient was complaining of mild shortness of breath, facial swelling, tongue swelling, throat swelling and wheezes. Patient was evaluated by the ED staff and decision to secure airway was taken to prevent airway collapse. Patient was intubated and placed on mechanical ventilator. Initial parameters were VT 500, RR 22, FiO2 55%, peep 10. Patient was started on methylprednisolone 60 mg b.i.d., sedation. Prophylactic dose of enoxaparin. Patient was admitted for further assessment and management. Patient seen and examined at bedside. Patient is currently status post extubation performed yesterday on 06/20/2024. Patient is currently alert in person and oriented place but not in time. Patient is having random thoughts, patient might be cursing with an episode of delirium. We will not give any medications at this time and we will let her wean off completely of sedation from her system. We will encouraged the daughter to stay around her and talking more to her. Patient is currently on room air saturating above 94%. We will keep monitoring saturations. We will continue IV Zosyn and doxycycline at this time. We will give an additional 500 cc of D5W with half NS due to probable dehydration and hypernatremia. We will possibly downgrade patient to TY. ROS, not able to obtain fully due to possible episode of delirium. Objective vital signs Vital Sign Date Time Temp Pulse Resp B/P (MAP) Pulse Ox O2 Delivery O2 Flow Rate FiO2 06/21/24 09:07 133/91 06/21/24 07:46 95 Nasal Cannula* 4 36 06/21/24 07:40 96 20 06/21/24 04:01 97.6 97.6 Total Intake and Output 06/20/24 06/20/24 06/21/24 15:00 23:00 07:00 Intake Total 803.791 ml 650.10 ml 100 ml Output Total 1550 ml 1475 ml Balance 803.791 ml -899.90 ml -1375 ml medications Current Medications Medications Dose Ordered Sig/Maday Route Start Time Stop Time Status Last Admin Dose Admin Ondansetron HCl 4 mg Q4HP PRN IV 06/09/24 08:00 06/20/24 21:57 4 MG Hydralazine HCl 10 mg Q6HP PRN IV 06/09/24 08:00 06/21/24 06:18 10 MG Aspirin 81 mg DAILY PO 06/10/24 10:00 06/21/24 09:08 81 MG Atorvastatin Calcium 40 mg HS PO 06/09/24 22:00 06/19/24 22:29 40 MG Pantoprazole Sodium 40 mg DAILY IV 06/09/24 10:00 06/21/24 09:08 40 MG Albuterol 2.5 mg Q6HR NEB 06/09/24 12:00 06/21/24 07:31 2.5 MG Ipratropium [place] 0.5 mg Q6HR NEB 06/09/24 12:00 06/21/24 07:32 0.5 MG Piperacillin Sod/ Tazobactam Sod 100 ml @ 25 mls/hr Q8HR IV 06/10/24 17:00 06/21/24 06:04 25 MLS/HR Amlodipine Besylate 10 mg DAILY PO 06/11/24 08:15 06/21/24 09:07 10 MG Acetylcysteine 100 mg Q6HR NEB 06/12/24 12:00 06/21/24 07:31 100 MG Enteral Nutritional Formula 1,000 ml 30ML/HR GT 06/12/24 13:15 06/16/24 23:19 1,000 ML Doxycycline Monohydrate 100 mg Q12HR PO 06/13/24 22:00 06/21/24 09:07 100 MG Sodium Chloride 10 ml QSHIFT@10,22 IV 06/14/24 10:00 06/21/24 09:26 10 ML Acetaminophen 650 mg Q6HP PRN GT 06/16/24 20:30 Purified Water 250 ml Q6HR GT 06/17/24 12:00 06/20/24 12:00 250 ML Fentanyl Citrate 250 ml @ 2.5 mls/hr Q24H IV 06/20/24 02:00 06/20/24 02:00 5 MLS/HR Morphine Sulfate 1 mg Q6HP PRN IV 06/20/24 17:30 06/20/24 21:58 1 MG Methylprednisolone Sodium Succinate 20 mg DAILY IV 06/21/24 10:00 Examination Physical Examination General: Patient alert and oriented in person and place but not in time. Status post extubation. Patient might be cursing with the episode of delirium. patient follows command. HEENT: Normocephalic, atraumatic, moist mucous membranes Respiratory/pulmonary: Clear lungs bilaterally, no associated crackles or wheezes. Status post extubation, on room air at this time. Cardiovascular: Normal heart sounds S1 and S2 with no associated murmurs Abdomen: Abdomen nondistended, there is no pain to palpation in any of the abdominal quadrants, no palpable masses. Extremities: There is no peripheral edema present at the lower extremities. Peripheral Pulses: 3+ Radial (R). 3+ Radial (L). 3+ Dorsalis pedis (R). 3+ Dorsalis pedis(L) Skin: No rashes or pruritus, there is no sacral edema present at this time. laboratory and microbiology Laboratory Tests 06/21/24 03:00 Test 06/21/24 03:00 Range/Units Serum Glucose 137 H 74-106 mg/dL Microbiology Date/Time Source Procedure Growth Status 06/18/24 23:20 Voided Urine Urine Culture - Preliminary Resulted 06/16/24 23:54 Blood Blood Culture - Preliminary NO GROWTH AFTER 72 HOURS OF INCUBATION. Resulted 06/16/24 22:10 Bronchial Washings Gram Stain - Final Complete 06/16/24 22:10 Bronchial Washings Respiratory Culture - Final Complete 06/10/24 18:10 Nose MRSA Screen - Final Complete Problem List/Assessment/Plan Problem List/Assessment/Plan Assessment/Plan Acute anaphylactic reaction, unkown source Acute angioedema Sepsis with acute organ dysfunction kidney Acute hypoxic respiratory failure likely due to above -patient was having facial swelling, tongue, throat swelling and decision was to intubate to protect airway -patient is currently on room air saturating above 94%. -monitor ABG -Decrease methylprednisolone to 20 mg IV daily, and then we will wean off steroids. -sedated on propofol, Versed. Analgesia with fentanyl -keep saturation above 92% -bronchoscopy was performed yesterday on 06/16/2024, no complications, bilateral mucus plugs were removed from right and left lower lobes of the lung. -there was no air leak present at this time. We will give a single dose of Decadron 6 mg IV and increase methylprednisolone to 40mg b.i.d. -patient is status post extubation yesterday 06/20/2024. We will order a new chest x-ray for today an ABG. Sepsis due to possible aspiration pneumonia POA Possible aspiration pneumonitis not present on admission -Continue on IV zosyn -Continue doxycycline -Monitor Chest xrays -patient is status post extubation on 06/20/2024. 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% -echocardiogram showed LVEF of 45% with apical wall abnormalities and hypokinesis -EKG showed sinus rhythm with right bundle branch block and T-wave inversion in all leads -troponins were elevated -Discontinue bumex to 2 mg BID Acute hypernatremia -D5W/o.45%NS 500cc IV fluids -Na 153, now 150, slightly improving NSTEMI type 2 likely due to above -trend troponins -cardiology on the case DI likely due to vasomotor nephropathy -creatinine was 1.03, Cr 1.04 -we will monitor kidney function closely -hold Nirav or arbs at this time Primary hypertension -blood pressure on normal range at this time -patient sedated and intubated, not needing vasopressor at this time Dyslipidemia -continue atorvastatin 40 mg daily Morbid obesity Grade III -Lifestyle modification Will place PICC line. We will possibly downgrade patient to TY at this time. Goals of care discussed with daughter by phone for >20min, FULL CODE Critical time spent >41min Plan discussed with Dr. Tate Plan discussed with: Patient, Daughter My Orders My Orders Orders - CHRIS JOSE RESIDENT Procedure Category Date Status Time Morphine Sulfate PHA 06/20/24 In Process Injection 17:30 * Swallow Request ST 06/21/24 Transmitted 09:00 Methylprednisolone PHA 06/21/24 In Process Sod Succ (Solu Medrol 10:00 [facility] 06/21/24 In Process Clarification: 23:59 D5w/Sod Chl 0.45% PHA 06/21/24 In Process (D5w 1/2ns) 09:45 Dietary Evaluation Review Comments: 1. Recommend Vital HP while on high-dose propofol; begin @ 10 ml/hr, advance by 10 ml Q4 or as tolerated to goal-rate of 50 ml/hr continuously 2. Provide minimal free water flushes for tube patency of 30 ml Q6 (120 ml total); adjust PRN 3. Monitor BMP/lytes and replete per protocol TF Provision: TF at goal to provide 1200 ml total volume, 1200 kcal (+562 via propofol = 1762 kcal), 105 gm pro, 0 gm fiber, 1103 ml H20 (meets 100% est. kcal needs, 100% est. pro needs) Expected Outcomes/Goals: Adequate nutrition, weight maintenance, improved hemodynamic stability. Date of Service: Jun 21, 2024 Billing Provider: DARION TATE DO Common Visit Codes: [id number] CARE 30-74 MIN, [id number] CARE-EACH +30MIN CHRIS JOSE RESIDENT Jun 21, 2024 09:53 DARION TATE DO Jun 22, 2024 20:44
--- NOTE | 2024-06-21 11:13 | DVH ---
CHEST RADIOGRAPH Indication: reeval post extubation Technique: Single frontal view of the chest was obtained Comparison: XY CHEST XRAY 1 VIEW on DOS: 06/20/24, XY CHEST XRAY 1 VIEW on DOS: 06/19/24, XY CHEST XRAY 1 VIEW on DOS: 06/18/24, XY CHEST XRAY 1 VIEW on DOS: 06/17/24, XY CHEST XRAY 1 VIEW on DOS: 06/16/24 FINDINGS: Lines and Tubes: Right PICC tip in the SVC Lungs: No focal consolidation. Pleura: No effusion. No pneumothorax. Cardiomediastinal contours: Unremarkable Bones: No acute osseous abnormality. IMPRESSION: No acute cardiopulmonary disease.
[2024-06-21] MEDS: methylPREDNISolone SOD SUCC 40 MG/ML VL IV SCH (11:39)
--- NOTE | 2024-06-21 12:18 | DVHPN2 ---
Progress Note - Dictate Date Seen: Jun 21, 2024 Has the PT tested + for MRSA If YES, has PT been informed?: No Medical Necessity Reason Pt with a Central, PICC or Fol: Yes The following are medically ne: Bae Catheter Reason for bae catheter: Strict I&O vital signs Vital Sign Date Time Temp Pulse Resp B/P (MAP) Pulse Ox O2 Delivery O2 Flow Rate FiO2 06/21/24 12:10 86 20 98 06/21/24 12:00 Nasal Cannula* 4 36 06/21/24 09:07 133/91 06/21/24 04:01 97.6 97.6 Total Intake and Output 06/20/24 06/20/24 06/21/24 15:00 23:00 07:00 Intake Total 803.791 ml 650.10 ml 100 ml Output Total 1550 ml 1475 ml Balance 803.791 ml -899.90 ml -1375 ml medications Current Medications Medications Dose Ordered Sig/Maday Route Start Time Stop Time Status Last Admin Dose Admin Ondansetron HCl 4 mg Q4HP PRN IV 06/09/24 08:00 06/20/24 21:57 4 MG Hydralazine HCl 10 mg Q6HP PRN IV 06/09/24 08:00 06/21/24 06:18 10 MG Aspirin 81 mg DAILY PO 06/10/24 10:00 06/21/24 09:08 81 MG Atorvastatin Calcium 40 mg HS PO 06/09/24 22:00 06/19/24 22:29 40 MG Pantoprazole Sodium 40 mg DAILY IV 06/09/24 10:00 06/21/24 09:08 40 MG Albuterol 2.5 mg Q6HR NEB 06/09/24 12:00 06/21/24 12:02 2.5 MG Ipratropium [place] 0.5 mg Q6HR NEB 06/09/24 12:00 06/21/24 12:02 0.5 MG Piperacillin Sod/ Tazobactam Sod 100 ml @ 25 mls/hr Q8HR IV 06/10/24 17:00 06/21/24 06:04 25 MLS/HR Amlodipine Besylate 10 mg DAILY PO 06/11/24 08:15 06/21/24 09:07 10 MG Acetylcysteine 100 mg Q6HR NEB 06/12/24 12:00 06/21/24 12:02 100 MG Enteral Nutritional Formula 1,000 ml 30ML/HR GT 06/12/24 13:15 06/16/24 23:19 1,000 ML Doxycycline Monohydrate 100 mg Q12HR PO 06/13/24 22:00 06/21/24 09:07 100 MG Sodium Chloride 10 ml QSHIFT@10,22 IV 06/14/24 10:00 06/21/24 09:26 10 ML Acetaminophen 650 mg Q6HP PRN GT 06/16/24 20:30 Purified Water 250 ml Q6HR GT 06/17/24 12:00 06/20/24 12:00 250 ML Fentanyl Citrate 250 ml @ 2.5 mls/hr Q24H IV 06/20/24 02:00 06/20/24 02:00 5 MLS/HR Morphine Sulfate 1 mg Q6HP PRN IV 06/20/24 17:30 06/20/24 21:58 1 MG Methylprednisolone Sodium Succinate 20 mg DAILY IV 06/21/24 10:00 06/21/24 11:39 20 MG laboratory and microbiology Laboratory Tests 06/21/24 03:00 Test 06/21/24 03:00 Range/Units Serum Glucose 137 H 74-106 mg/dL Assessment/Plan Impression Acute hypoxemic respiratory failure Angioedema Morbid obesity Pneumonia Patient seen and examined in ICU Events S/p extubation Low oxygen requirements On 4 liters nasal cannula Angioedema secondary to Lisinopril Off all drips, no distress Labs and imaging reviewed Management Supplemental oxygen Titrate to maintain sats 90% or above Incentive spirometry Prn bipap Continue antibiotics F/u cultures Bronchodilators IV steroids Monitor renal function Monitor electrolytes Supplement as needed Observe closely DVT prophylaxis Critical care time 35 minutes Dietary Evaluation Review Comments: 1. Recommend Vital HP while on high-dose propofol; begin @ 10 ml/hr, advance by 10 ml Q4 or as tolerated to goal-rate of 50 ml/hr continuously 2. Provide minimal free water flushes for tube patency of 30 ml Q6 (120 ml total); adjust PRN 3. Monitor BMP/lytes and replete per protocol TF Provision: TF at goal to provide 1200 ml total volume, 1200 kcal (+562 via propofol = 1762 kcal), 105 gm pro, 0 gm fiber, 1103 ml H20 (meets 100% est. kcal needs, 100% est. pro needs) Expected Outcomes/Goals: Adequate nutrition, weight maintenance, improved hemodynamic stability. Plan discussed with: Patient DEQUAN MORALES MD Jun 21, 2024 12:18
--- NOTE | 2024-06-21 15:12 | DVHINCON2 ---
Date of service: Jun 21, [address] Cool Reason for Consultation Leucocytosis History of Present Illness Patient is a 63-year-old female presented to the hospital in the ED on 06/09 with a chief complaint of allergic reaction. Patient got intubation due to severe allergic reaction with angioedema. According to records, apparently symptoms of facial swelling, tongue swelling, throat swelling, shortness of breath, and wheezing started on 06/08 night. On 06/09, Patient was unable to speak in full sentences, and in respiratory distress at that time care, saturating 95% on room air. On 06/11, decreased FiO2 from 55-45%, respiratory rate was decreased from 22-20 and PEEP was kept at 8. Bilateral lower extremities were not edematous that morning. Blood pressure was in the higher side for which patient started on Amlodipine 10 mg daily. Scheduled CPAP trial for 06/12 a.m. Patient was failed to do CPAP trial on 06/12 a.m. since she was desaturating overnight requiring more FiO2. On 06/13, Patient started enteral nutrition, and cancelled CPAP trial since she was not yet meeting minimal ventilatory settings. There were no peripheral edema on bilateral lower extremities. 06/16 S/P Bronchoscopy. On 06/19, Patient was being weaned off sedation for CPAP trial that morning, still intubated on minimal ventilatory settings S/P extubation on 06/20/2024. ID consulted for Leukocytosis. Past Medical History Patient's past medical history is significant for hypertension and obesity. Family History: Cardiovascular disease G8 MOTHER Allergies: Coded Allergies: NO KNOWN ALLERGIES (Unverified , 06/09/24) Home Meds Reported Medications Lisinopril (Lisinopril) 20 Mg Tab, 1 TAB PO BID 06/09/24 Atorvastatin Calcium (ATORVASTATIN CALCIUM) 20 Mg Tab, 1 TAB PO DAILY 06/09/24 Current Medications Current Medications Medications (Trade) Dose Ordered Sig/Maday Route PRN Reason Start Time Stop Time Status Last Admin Morphine Sulfate 1 mg Q6HP PRN IV MODERATE PAIN (4-6 PAIN SCALE) 06/20/24 17:30 06/20/24 21:58 Methylprednisolone Sodium Succinate (Solu Medrol) 20 mg DAILY IV 06/21/24 10:00 06/21/24 11:39 Review of Systems ROS limited due to current condition Vital Signs Vital Signs Date Time Temp Pulse Resp B/P (MAP) Pulse Ox O2 Delivery O2 Flow Rate FiO2 06/21/24 14:30 100 25 141/88 (105) 86 06/21/24 14:00 Nasal Cannula* 4 36 06/21/24 04:01 97.6 97.6 Physical Exam General: Patient alert and oriented in person and place but not in time. S/P extubation. HEENT: Normocephalic, atraumatic, moist mucous membranes Respiratory/pulmonary: Clear lungs bilaterally, no associated crackles or wheezes. Cardiovascular: Normal heart sounds S1 and S2 with no associated murmurs Abdomen: Abdomen nondistended, there is no pain to palpation in any of the abdominal quadrants, no palpable masses. Extremities: There is no peripheral edema present at the lower extremities. Skin: No rashes or pruritus, there is no sacral edema present at this time. Labs/Diagnostic Data Labs Test 06/21/24 03:00 06/20/24 09:33 06/20/24 03:15 06/19/24 07:23 Range/Units White Blood Count 19.5 #H 4.4-10.8 10^3/uL Red Blood Count 5.55 H 4.0-5.20 10^6/uL Hemoglobin 14.5 12.2-16.2 g/dL Hematocrit 44.7 36.0-46.0 % Mean Corpuscular Volume 80.5 80.0-100.0 fL Mean Corpuscular Hemoglobin 26.1 L 28.0-32.0 pg Mean Corpuscular Hemoglobin Concent 32.4 32.0-36.0 g/dL Red Cell Distribution Width 17.4 H 11.8-14.3 % Platelet Count 291 140-450 10^3/uL Mean Platelet Volume 8.6 6.9-10.8 fL Neutrophils (%) (Auto) 37.0-80.0 % Lymphocytes (%) (Auto) 10.0-50.0 % Monocytes (%) (Auto) 0.0-12.0 % Basophils (%) (Auto) 0.0-2.0 % Neutrophils # (Auto) 1.6-8.6 10 ^3/uL Lymphocytes # (Auto) 0.4-5.4 10 ^3/uL Monocytes # (Auto) 0-1.3 10 ^3/uL Differential Total Cells Counted 100.0 100 Neutrophils % (Manual) 78 37.0-80.0 Band Neutrophils % (Manual) 0 Lymphocytes % (Manual) 16 10.0-50.0 Monocytes % (Manual) 5 0-12 Eosinophils % (Manual) 1 0-7 Basophils % (Manual) 0 0.0-2.0 Metamyelocytes % (manual) 0 Myelocytes % (Manual) 0 Promyelocytes % (Manual) 0 Blast Cells % (Manual) 0 Reactive Lymphocytes 0 Platelet Estimate Adequate Sodium Level 150 H 136-145 mmol/L Potassium Level 3.8 3.5-5.1 mmol/L Chloride Level 115 H 98-107 mmol/L Carbon Dioxide Level 23 20-31 mmol/L Anion Gap 12 5-15 Blood Urea Nitrogen 33 H 9-23 mg/dL Creatinine 1.04 H 0.550-1.02 mg/dL Glomerular Filtration Rate Calc 60 >90 mL/min BUN/Creatinine Ratio 31.7 H 10.0-20.0 Serum Glucose 137 H 74-106 mg/dL Calcium Level 10.7 H 8.7-10.4 mg/dL Blood Gas Specimen Type Arterial Blood Gas Sample Site Right radial Blood Gas Patient Temperature 37.0 Arterial Blood Date Drawn [id number] Arterial Blood pH 7.491 H 7.350-7.450 Arterial Blood Partial Pressure CO2 32.5 32.0-45.0 mmHg Arterial Blood Partial Pressure O2 67.1 L 83.0-108.0 mmHg Arterial Blood HCO3 24.3 21.0-28.0 mmol/L Arterial Blood Oxygen Saturation 92.3 L 94.0-98.0 % Arterial Blood Base Excess 1.6 -2.0-3.0 mmol/L Arterial Blood Oxyhemoglobin 92.0 L 94.0-98.0 % Arterial Blood Carboxyhemoglobin 0.0 L 0.5-1.5 % Arterial Blood Methemoglobin 0.3 0.0-1.5 % Ken Test Modified Blood Gas Total Hemoglobin 13.70 12.0-16.0 g/dL Blood Gas Modality Vent - cpap Blood Gas Spontaneous Rate 23 FiO2 % 35.0 Blood Gas Spontaneous Tidal Volume 616 Blood Gas Inspiratory Pressure 14.0 Blood Gas PEEP or CPAP 5.0 Bl Gas Inspiratory/Expiratory Ratio 1:1.5 Specimen Drawn By socorro hooks Blood Gas Notified By socorro hooks Eosinophils (%) (Auto) 0.1 0.0-7.0 % Eosinophils # (Auto) 0 0-0.8 10 ^3/uL Basophils # (Auto) 0 0-0.2 10 ^3/uL Nucleated Red Blood Cells 0.1 % Magnesium Level 2.3 1.6-2.6 mg/dL Blood Gas Set Respiration Rate 20.0 Blood Gas Tidal Volume 500.0 Test 06/17/24 03:10 06/16/24 03:00 06/14/24 10:11 06/09/24 12:35 Range/Units Total Bilirubin 0.8 0.2-1.0 mg/dL Aspartate Amino Transferase (AST) 33 13-40 U/L Alanine Aminotransferase (ALT) 24 7-40 U/L Alkaline Phosphatase 121 H 46-116 U/L Total Protein 8.1 5.7-8.2 g/dL Albumin 4.7 3.2-4.8 g/dL Phosphorus Level 2.7 2.4-5.1 mg/dL Prothrombin Time 10.6 9.3-11.8 sec Prothrombin Time INR 1.00 0.9-1.15 Activated Partial Thromboplast Time 23.9 L 24.5-34.5 SEC Troponin I High Sensitivity 517 *H </=34 ng/L Test 06/09/24 10:11 06/09/24 08:03 06/09/24 04:19 06/09/24 02:44 Range/Units Influenza Type A Antigen Negative Negative Influenza Type B Antigen Negative Negative SARS-CoV-2 Antigen (Rapid) Negative NEGATIVE Triglycerides Level 163 H < 150 mg/dL Cholesterol Level 190 < 200 mg/dL LDL Cholesterol 134 H < 100 mg/dL HDL Cholesterol 31 L 40-59 mg/dL Thyroid Stimulating Hormone (TSH) 1.76 0.55-4.78 uIU/mL Urine Color Colorless Yellow Urine Clarity Clear Clear Urine pH 6.0 5.0-9.0 Urine Specific [place] 1.005 1.001-1.035 Urine Protein Negative Negative Urine Ketones Negative Negative Urine Blood Negative Negative /uL Urine Nitrite Negative Negative Urine Bilirubin Negative Negative Urine Urobilinogen Normal Negative mg/dL Urine Leukocyte Esterase Negative Negative /uL Urine RBC 1 0 - 4 /hpf Urine Microscopic WBC < 1 0-5 /HPF Urine Squamous Epithelial Cells Few <5 /hpf Urine Bacteria Few H None Seen /hpf Urine Mucus Few None Seen Urine Glucose Normal Normal mg/dL Hemoglobin A1c 6.1 H <5.7 % A1C Lactic Acid Level 1.2 0.4-2.0 mmol/L B-Type Natriuretic Peptide 20.54 0-100 pg/mL Microbiology Date/Time Source Procedure Growth Status 06/18/24 23:20 Voided Urine Urine Culture - Preliminary Resulted 06/16/24 23:54 Blood Blood Culture - Preliminary NO GROWTH AFTER 72 HOURS OF INCUBATION. Resulted 06/16/24 22:10 Bronchial Washings Gram Stain - Final Complete 06/16/24 22:10 Bronchial Washings Respiratory Culture - Final Complete 06/10/24 18:10 Nose MRSA Screen - Final Complete Assessment Patient is a 63-year-old male presents to the hospital with: Angioedema Acute hypoxic respiratory failure s/p extubation Leucocytosis Delirium Recommendations reviewed all the cultures: blood, sputum She is receiving broad spectrum antibiotics Doxycycline and Zosyn since 06/10, Leucocytosis is likely reactive personally reviewed imaging CXR no infiltrate Dc Doxycycline/ zosyn monitor WBC and for signs of infection 06/21, WBC elevated at 22.5K Antibiotic status: Doxycycline IV [Started on 06/10 - Ongoing] Zosyn IV [Started on 06/13 - Ongoing] It's unclear what is the reason for Angioedema. Review of culture: 06/09, Respiratory culture showed no growth 06/10, MRSA screening negative 06/13, Respiratory culture showed no growth 06/16, Respiratory culture showed no growth 06/16, Blood culture showed no growth 06/18, Urine culture showed no growth A total of 80 minutes was spent performing this encounter on this date of service. My evaluation of this patient included review of the chart, history, laboratory, imaging findings and discussion with the patient and or family, treatment team placing orders and documenting the plan. Plan discussed with Dr Cool Thank you for consult Plan discussed with: AMY Soliman MD Jun 21, 2024 15:12
[2024-06-21] MEDS: D5W 5% 1,000 ML IV SCH (20:40)
[2024-06-21 21:45] LABS: Hemoglobin 14.9 g/dL (12.2-16.2)
[2024-06-21 21:47] LABS: Hematocrit 45.9 % (36.0-46.0); Mean Corpuscular Hemoglobin 26.1 pg (28.0-32.0); Mean Corpuscular Hgb Conc. 32.4 g/dL (32.0-36.0); Mean Corpuscular Volume 80.7 fL (80.0-100.0); Platelet Count (auto) 300 10^3/uL (140-450); Red Blood Cells 5.69 10^6/uL (4.0-5.20); Red Cell Distribution Width 16.8 % (11.8-14.3); White Blood Cell 22.5 10^3/uL (4.4-10.8)
[2024-06-21 21:52] LABS: Band Neutrophils % (manual) 0; Basophils % (manual) 0 (0.0-2.0); Blast Cells 0; Eosinophils % (manual) 0 (0-7); Metamyelocytes % 0; Myelocytes % 0; Promyelocytes % 0; Reactive Lymphocytes 0
[2024-06-21 22:03] LABS: Alanine Aminotransferase 35 U/L (7-40); Albumin 4.6 g/dL (3.2-4.8); Alkaline Phosphatase 121 U/L (46-116); Anion Gap 13 (5-15); Aspartate Aminotransferase 40 U/L (13-40); BUN/Creatinine Ratio 30.4 (10.0-20.0); Blood Urea Nitrogen 31 mg/dL (9-23); Calcium 10.8 mg/dL (8.7-10.4); Carbon Dioxide 23 mmol/L (20-31); Chloride 115 mmol/L (98-107); Glucose 125 mg/dL (74-106); Potassium 3.5 mmol/L (3.5-5.1); Sodium 151 mmol/L (136-145); Total Protein 7.8 g/dL (5.7-8.2)
[2024-06-21 22:04] LABS: Bilirubin, Total 0.6 mg/dL (0.2-1.0)
[2024-06-21 22:15] LABS: Lymphocytes % (manual) 27 (10.0-50.0); Monocytes % (manual) 3 (0-12)
[2024-06-21 22:16] LABS: Platelet Estimate Adequate
[2024-06-21 22:18] LABS: Lactic Acid w/Reflex 2.4 mmol/L (0.4-2.0)
[2024-06-21 23:23] LABS: Base Excess 0.3 mmol/L (-2.0-3.0)
[2024-06-22] VITALS (84 sets, daily range): BP systolic 121–176; BP diastolic 70–110; PULSE 63–98; RESP 11–26; TEMP 98.3–99; O2SAT 89–100
[2024-06-22] MEDS: D5W 5% 500 ML IV ONE (00:01)
[2024-06-22] MEDS: PIPERACILLIN-TAZOB 3.375GM 100 ML IV SCH (00:59)
[2024-06-22] MEDS: PIPERACILLIN-TAZOB 3.375GM 100 ML IV ONE (01:00)
[2024-06-22] MEDS: DOXYCYCLINE 100 MG TAB/CAP PO SCH (01:40)
[2024-06-22] MEDS: ACETAMINOPHEN 650 mg PER 20.3 mL UD GT PRN (01:54)
[2024-06-22 04:11] LABS: Basophils # (auto) 0.1 10 ^3/uL (0-0.2); Eosinophils # (auto) 0 10 ^3/uL (0-0.8)
[2024-06-22 04:15] LABS: Basophils % (auto) 0.6 % (0.0-2.0); Eosinophils % (auto) 0.2 % (0.0-7.0); Hematocrit 46.4 % (36.0-46.0); Hemoglobin 14.9 g/dL (12.2-16.2); Lymphocytes % (auto) 14.4 % (10.0-50.0); Mean Corpuscular Hemoglobin 26.1 pg (28.0-32.0); Mean Corpuscular Hgb Conc. 32.2 g/dL (32.0-36.0); Monocytes # (auto) 1.7 10 ^3/uL (0-1.3); Neutrophils # (auto) 16.1 10 ^3/uL (1.6-8.6); Neutrophils % (auto) 76.8 % (37.0-80.0); Nucleated Red Blood Cells % 0.2 %; Platelet Count (auto) 261 10^3/uL (140-450); Red Blood Cells 5.73 10^6/uL (4.0-5.20); Red Cell Distribution Width 17.2 % (11.8-14.3); White Blood Cell 20.9 10^3/uL (4.4-10.8)
[2024-06-22 04:27] LABS: Anion Gap 13 (5-15); Carbon Dioxide 22 mmol/L (20-31)
[2024-06-22 04:32] LABS: BUN/Creatinine Ratio 30.1 (10.0-20.0)
[2024-06-22 04:53] LABS: Blood Urea Nitrogen 28 mg/dL (9-23); Calcium 10.7 mg/dL (8.7-10.4); Chloride 112 mmol/L (98-107); Glucose 136 mg/dL (74-106); Potassium 3.4 mmol/L (3.5-5.1); Sodium 147 mmol/L (136-145)
[2024-06-22] MEDS: POTASSIUM EFFERVESENT TAB 25 MEQ PO ONE (07:52)
--- NOTE | 2024-06-22 08:10 | DVHPN2 ---
Progress Note - Dictate Date Seen: Jun 22, 2024 Has the PT tested + for MRSA If YES, has PT been informed?: No Medical Necessity Reason Pt with a Central, PICC or Fol: Yes The following are medically ne: Bae Catheter Reason for bae catheter: Strict I&O Subjective S/P Extubation on 06/20. Patient is Afebrile however concern of lactic acidosis. Antibiotics were restarted. vital signs Vital Sign Date Time Temp Pulse Resp B/P (MAP) Pulse Ox O2 Delivery O2 Flow Rate FiO2 06/22/24 06:48 84 21 96 06/22/24 06:44 Nasal Cannula* 3 32 06/22/24 06:38 163/94 06/22/24 04:00 98.6 98.6 Total Intake and Output 06/21/24 06/21/24 06/22/24 14:59 22:59 06:59 Intake Total 438.75 ml 186.6 ml 1450 ml Output Total 1150 ml 700 ml Balance 438.75 ml -963.4 ml 750 ml medications Current Medications Medications Dose Ordered Sig/Maday Route Start Time Stop Time Status Last Admin Dose Admin Ondansetron HCl 4 mg Q4HP PRN IV 06/09/24 08:00 06/20/24 21:57 4 MG Hydralazine HCl 10 mg Q6HP PRN IV 06/09/24 08:00 06/22/24 06:38 10 MG Aspirin 81 mg DAILY PO 06/10/24 10:00 06/21/24 09:08 81 MG Atorvastatin Calcium 40 mg HS PO 06/09/24 22:00 06/21/24 22:13 40 MG Pantoprazole Sodium 40 mg DAILY IV 06/09/24 10:00 06/21/24 09:08 40 MG Albuterol 2.5 mg Q6HR NEB 06/09/24 12:00 06/22/24 06:42 2.5 MG Ipratropium [place] 0.5 mg Q6HR NEB 06/09/24 12:00 06/22/24 06:42 0.5 MG Amlodipine Besylate 10 mg DAILY PO 06/11/24 08:15 06/21/24 09:07 10 MG Acetylcysteine 100 mg Q6HR NEB 06/12/24 12:00 06/22/24 06:43 100 MG Enteral Nutritional Formula 1,000 ml 30ML/HR GT 06/12/24 13:15 06/16/24 23:19 1,000 ML Sodium Chloride 10 ml QSHIFT@10,22 IV 06/14/24 10:00 06/21/24 22:13 10 ML Acetaminophen 650 mg Q6HP PRN GT 06/16/24 20:30 06/22/24 01:54 650 MG Purified Water 250 ml Q6HR GT 06/17/24 12:00 06/22/24 06:00 250 ML Fentanyl Citrate 250 ml @ 2.5 mls/hr Q24H IV 06/20/24 02:00 06/20/24 02:00 5 MLS/HR Morphine Sulfate 1 mg Q6HP PRN IV 06/20/24 17:30 06/20/24 21:58 1 MG Methylprednisolone Sodium Succinate 20 mg DAILY IV 06/21/24 10:00 06/21/24 11:39 20 MG Dextrose 1,000 ml @ 50 mls/hr Q20H IV 06/21/24 20:30 06/21/24 20:40 50 MLS/HR Doxycycline Monohydrate 100 mg Q12HR PO 06/22/24 00:00 06/22/24 01:40 100 MG Piperacillin Sod/ Tazobactam Sod 100 ml @ 25 mls/hr Q8HR IV 06/22/24 00:00 06/22/24 06:37 25 MLS/HR objective General: Patient alert and oriented in person and place but not in time. S/P extubation. HEENT: Normocephalic, atraumatic, moist mucous membranes Respiratory/pulmonary: Clear lungs bilaterally, no associated crackles or wheezes. Cardiovascular: Normal heart sounds S1 and S2 with no associated murmurs Abdomen: Abdomen nondistended, there is no pain to palpation in any of the abdominal quadrants, no palpable masses. Extremities: There is no peripheral edema present at the lower extremities. Skin: No rashes or pruritus, there is no sacral edema present at this time. laboratory and microbiology Laboratory Tests 06/22/24 03:48 Test 06/22/24 03:48 Range/Units Serum Glucose 136 H 74-106 mg/dL Assessment/Plan Patient is a 63-year-old male presents to the hospital with: Lactic acidosis Angioedema Acute hypoxic respiratory failure s/p extubation Leucocytosis Delirium Recommendations Antibiotics resumed by Primary Team, on IV Doxycycline and Zosyn. However I advised to switched Doxycycline to Vancomycin IV Repeat 2 sets of blood culture Blood pressure is stable Will monitor for any acute worsening He is receiving broad spectrum antibiotics Doxycycline and Zosyn since 06/10, Leucocytosis is likely reactive personally reviewed imaging CXR no infiltrate monitor WBC 06/22, WBC elevated at 20.9K Antibiotic status: Doxycycline IV [Started on 06/10 - Ongoing] Zosyn IV [Started on 06/13 - Ongoing] It's unclear what is the reason for Angioedema. Review of culture: 06/09, Respiratory culture showed no growth 06/10, MRSA screening negative 06/13, Respiratory culture showed no growth 06/16, Respiratory culture showed no growth 06/16, Blood culture showed no growth 06/18, Urine culture showed no growth Plan discussed with Primary Team A total of 80 minutes was spent performing this encounter on this date of service. My evaluation of this patient included review of the chart, history, laboratory, imaging findings and discussion with the patient and or family, treatment team placing orders and documenting the plan. Thank you for consult Dietary Evaluation Review Comments: 1. Recommend Vital HP while on high-dose propofol; begin @ 10 ml/hr, advance by 10 ml Q4 or as tolerated to goal-rate of 50 ml/hr continuously 2. Provide minimal free water flushes for tube patency of 30 ml Q6 (120 ml total); adjust PRN 3. Monitor BMP/lytes and replete per protocol TF Provision: TF at goal to provide 1200 ml total volume, 1200 kcal (+562 via propofol = 1762 kcal), 105 gm pro, 0 gm fiber, 1103 ml H20 (meets 100% est. kcal needs, 100% est. pro needs) Expected Outcomes/Goals: Adequate nutrition, weight maintenance, improved hemodynamic stability. Plan discussed with: AMY Soliman MD Jun 22, 2024 08:10
--- NOTE | 2024-06-22 10:01 | DVHPN2 ---
Progress Note - Dictate Date Seen: Jun 22, 2024 Has the PT tested + for MRSA If YES, has PT been informed?: No Medical Necessity Reason Pt with a Central, PICC or Fol: Yes The following are medically ne: Bae Catheter Reason for bae catheter: Strict I&O vital signs Vital Sign Date Time Temp Pulse Resp B/P (MAP) Pulse Ox O2 Delivery O2 Flow Rate FiO2 06/22/24 09:45 84 24 95 06/22/24 08:00 Nasal Cannula* 4 36 06/22/24 07:45 98.3 98.3 Total Intake and Output 06/21/24 06/21/24 06/22/24 15:00 23:00 07:00 Intake Total 413.75 ml 236.6 ml 1650 ml Output Total 1150 ml 700 ml Balance 413.75 ml -913.4 ml 950 ml medications Current Medications Medications Dose Ordered Sig/Maday Route Start Time Stop Time Status Last Admin Dose Admin Ondansetron HCl 4 mg Q4HP PRN IV 06/09/24 08:00 06/20/24 21:57 4 MG Hydralazine HCl 10 mg Q6HP PRN IV 06/09/24 08:00 06/22/24 06:38 10 MG Aspirin 81 mg DAILY PO 06/10/24 10:00 06/22/24 09:34 81 MG Atorvastatin Calcium 40 mg HS PO 06/09/24 22:00 06/21/24 22:13 40 MG Pantoprazole Sodium 40 mg DAILY IV 06/09/24 10:00 06/22/24 09:33 40 MG Albuterol 2.5 mg Q6HR NEB 06/09/24 12:00 06/22/24 06:42 2.5 MG Ipratropium [place] 0.5 mg Q6HR NEB 06/09/24 12:00 06/22/24 06:42 0.5 MG Amlodipine Besylate 10 mg DAILY PO 06/11/24 08:15 06/22/24 09:34 10 MG Acetylcysteine 100 mg Q6HR NEB 06/12/24 12:00 06/22/24 06:43 100 MG Enteral Nutritional Formula 1,000 ml 30ML/HR GT 06/12/24 13:15 06/16/24 23:19 1,000 ML Sodium Chloride 10 ml QSHIFT@, IV 06/14/24 10:00 06/22/24 09:35 10 ML Acetaminophen 650 mg Q6HP PRN GT 06/16/24 20:30 06/22/24 01:54 650 MG Purified Water 250 ml Q6HR GT 06/17/24 12:00 06/22/24 06:00 250 ML Fentanyl Citrate 250 ml @ 2.5 mls/hr Q24H IV 06/20/24 02:00 06/20/24 02:00 5 MLS/HR Morphine Sulfate 1 mg Q6HP PRN IV 06/20/24 17:30 06/20/24 21:58 1 MG Methylprednisolone Sodium Succinate 20 mg DAILY IV 06/21/24 10:00 06/22/24 09:33 20 MG Dextrose 1,000 ml @ 50 mls/hr Q20H IV 06/21/24 20:30 06/21/24 20:40 50 MLS/HR Doxycycline Monohydrate 100 mg Q12HR PO 06/22/24 00:00 06/22/24 09:34 100 MG Piperacillin Sod/ Tazobactam Sod 100 ml @ 25 mls/hr Q8HR IV 06/22/24 00:00 06/22/24 06:37 25 MLS/HR laboratory and microbiology Laboratory Tests 06/22/24 03:48 Test 06/22/24 03:48 Range/Units Serum Glucose 136 H 74-106 mg/dL Assessment/Plan Impression Acute hypoxemic respiratory failure Angioedema Morbid obesity Pneumonia Patient seen and examined in ICU Events S/p extubation Low oxygen requirements On 4 liters nasal cannula Angioedema secondary to Lisinopril resolved mentation improving Labs and imaging reviewed Management Supplemental oxygen Titrate to maintain sats 90% or above Incentive spirometry Prn bipap Continue antibiotics F/u cultures Bronchodilators IV steroids Monitor renal function Monitor electrolytes Supplement as needed ambulate with PT ok to d/grade DVT prophylaxis Critical care time 35 minutes Dietary Evaluation Review Comments: 1. Recommend Vital HP while on high-dose propofol; begin @ 10 ml/hr, advance by 10 ml Q4 or as tolerated to goal-rate of 50 ml/hr continuously 2. Provide minimal free water flushes for tube patency of 30 ml Q6 (120 ml total); adjust PRN 3. Monitor BMP/lytes and replete per protocol TF Provision: TF at goal to provide 1200 ml total volume, 1200 kcal (+562 via propofol = 1762 kcal), 105 gm pro, 0 gm fiber, 1103 ml H20 (meets 100% est. kcal needs, 100% est. pro needs) Expected Outcomes/Goals: Adequate nutrition, weight maintenance, improved hemodynamic stability. Plan discussed with: Patient DEQUAN MORALES MD Jun 22, 2024 10:01
--- NOTE | 2024-06-22 10:19 | DVHPNRES ---
Progress Note Date Seen: Jun 22, 2024 Resident Creating Document: QUEENIE GARCIA RESIDENT Has the PT tested + for MRSA If YES, has PT been informed?: No Medical Necessity Reason Pt with a Central, PICC or Fol: Yes The following are medically ne: Bae Catheter Reason for bae catheter: Strict I&O Subjective Review of Systems This is a 63-year-old female with past medical history of hypertension and morbid obesity grade 3, who presented to the ED with chief complaint of allergic reaction. Upon admission, the patient was complaining of mild shortness of breath, facial swelling, tongue swelling, throat swelling and wheezes. Patient was evaluated by the ED staff and decision to secure airway was taken to prevent airway collapse. Patient was intubated and placed on mechanical ventilator. Initial parameters were VT 500, RR 22, FiO2 55%, peep 10. Patient was started on methylprednisolone 60 mg b.i.d., sedation. Prophylactic dose of enoxaparin. Patient was admitted for further assessment and management. Patient seen and examined at bedside. Patient is currently status post extubation and on 4L O2 with saturation 95%. Patient is currently alert in person and oriented place but not in time. Last night patient had frequent delirium and lactic acid went up to 2.4. IV 5% DA bolus given and followed by 1 L at 50 mL/hour and lactic acid dropped down to 1.8. Blood culture, sputum culture ordered and discontinued IV doxycycline and started IV vancomycin as per pharmacy and IV Zosyn 3.375 g Q 8 hours as per Infectious Disease Dr. Nielsen recommendation. Sodium dropped down from 151 to 147 and we will continue IV 5% DKA at 50 mL/hours for hypernatremia. We will possibly downgrade patient to TY. Objective vital signs Vital Sign Date Time Temp Pulse Resp B/P (MAP) Pulse Ox O2 Delivery O2 Flow Rate FiO2 06/22/24 09:45 84 24 95 06/22/24 08:00 Nasal Cannula* 4 36 06/22/24 07:45 98.3 98.3 Total Intake and Output 06/21/24 06/21/24 06/22/24 15:00 23:00 07:00 Intake Total 413.75 ml 236.6 ml 1650 ml Output Total 1150 ml 700 ml Balance 413.75 ml -913.4 ml 950 ml medications Current Medications Medications Dose Ordered Sig/Maday Route Start Time Stop Time Status Last Admin Dose Admin Ondansetron HCl 4 mg Q4HP PRN IV 06/09/24 08:00 06/20/24 21:57 4 MG Hydralazine HCl 10 mg Q6HP PRN IV 06/09/24 08:00 06/22/24 06:38 10 MG Aspirin 81 mg DAILY PO 06/10/24 10:00 06/22/24 09:34 81 MG Atorvastatin Calcium 40 mg HS PO 06/09/24 22:00 06/21/24 22:13 40 MG Pantoprazole Sodium 40 mg DAILY IV 06/09/24 10:00 06/22/24 09:33 40 MG Albuterol 2.5 mg Q6HR NEB 06/09/24 12:00 06/22/24 06:42 2.5 MG Ipratropium [place] 0.5 mg Q6HR NEB 06/09/24 12:00 06/22/24 06:42 0.5 MG Amlodipine Besylate 10 mg DAILY PO 06/11/24 08:15 06/22/24 09:34 10 MG Acetylcysteine 100 mg Q6HR NEB 06/12/24 12:00 06/22/24 06:43 100 MG Enteral Nutritional Formula 1,000 ml 30ML/HR GT 06/12/24 13:15 06/16/24 23:19 1,000 ML Sodium Chloride 10 ml QSHIFT@10,22 IV 06/14/24 10:00 06/22/24 09:35 10 ML Acetaminophen 650 mg Q6HP PRN GT 06/16/24 20:30 06/22/24 01:54 650 MG Purified Water 250 ml Q6HR GT 06/17/24 12:00 06/22/24 06:00 250 ML Fentanyl Citrate 250 ml @ 2.5 mls/hr Q24H IV 06/20/24 02:00 06/20/24 02:00 5 MLS/HR Morphine Sulfate 1 mg Q6HP PRN IV 06/20/24 17:30 06/20/24 21:58 1 MG Methylprednisolone Sodium Succinate 20 mg DAILY IV 06/21/24 10:00 06/22/24 09:33 20 MG Dextrose 1,000 ml @ 50 mls/hr Q20H IV 06/21/24 20:30 06/21/24 20:40 50 MLS/HR Doxycycline Monohydrate 100 mg Q12HR PO 06/22/24 00:00 06/22/24 09:34 100 MG Piperacillin Sod/ Tazobactam Sod 100 ml @ 25 mls/hr Q8HR IV 06/22/24 00:00 06/22/24 06:37 25 MLS/HR Examination Physical Examination General: Patient alert and oriented in person and place but not in time. Status post extubation. Patient might be cursing with the episode of delirium. patient follows command. HEENT: Normocephalic, atraumatic, moist mucous membranes Respiratory/pulmonary: Clear lungs bilaterally, no associated crackles or wheezes. Status post extubation, on room air at this time. Cardiovascular: Normal heart sounds S1 and S2 with no associated murmurs Abdomen: Abdomen nondistended, there is no pain to palpation in any of the abdominal quadrants, no palpable masses. Extremities: There is no peripheral edema present at the lower extremities. Peripheral Pulses: 3+ Radial (R). 3+ Radial (L). 3+ Dorsalis pedis (R). 3+ Dorsalis pedis(L) Skin: No rashes or pruritus, there is no sacral edema present at this time. laboratory and microbiology Laboratory Tests 06/22/24 03:48 Test 06/22/24 03:48 Range/Units Serum Glucose 136 H 74-106 mg/dL Microbiology Date/Time Source Procedure Growth Status 06/18/24 23:20 Voided Urine Urine Culture - Final Complete 06/16/24 23:54 Blood Blood Culture - Final NO GROWTH AFTER 5 DAYS OF INCUBATION. Complete 06/16/24 22:10 Bronchial Washings Gram Stain - Final Complete 06/16/24 22:10 Bronchial Washings Respiratory Culture - Final Complete 06/10/24 18:10 Nose MRSA Screen - Final Complete Labs and/or images reviewed: Labs reviewed by me, Image(s) reviewed by me Problem List/Assessment/Plan Problem List/Assessment/Plan Assessment/Plan Acute anaphylactic reaction, unknown etiology/trigger Acute angioedema Sepsis with acute organ dysfunction; kidney Acute hypoxic respiratory failure likely due to above -patient was having facial swelling, tongue, throat swelling and decision was to intubate to protect airway -patient is currently on 4L O2 saturating above 94%. -monitor ABGs -Decrease methylprednisolone to 20 mg IV daily, and then we will wean off steroids. -sedated on propofol, Versed. Analgesia with fentanyl -keep saturation above 92% -bronchoscopy was performed on 06/16/2024, no complications, bilateral mucus plugs were removed from right and left lower lobes of the lung. -there was no air leak present at this time. We will give a single dose of Decadron 6 mg IV and increase methylprednisolone to 40mg b.i.d. -patient is status post extubation yesterday 06/20/2024. We will order a new chest x-ray for today an ABGs. Sepsis due to possible aspiration pneumonia POA Possible aspiration pneumonitis not present on admission - Ordered blood culture, sputum culture - started IV vancomycin as per pharmacy -Continue on IV Zosyn -Monitor Chest X-rays -patient is status post extubation on 06/20/2024. 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% -echocardiogram showed LVEF of 45% with apical wall abnormalities and hypokinesis -EKG showed sinus rhythm with right bundle branch block and T-wave inversion in all leads -troponin were elevated -Discontinue Bumex to 2 mg BID Acute hypernatremia -D5W/ 1L @ 50 ml/hr IV fluids -Na 147 improving NSTEMI type 2 likely due to above -trend troponin -cardiology on the case DI likely due to vasomotor nephropathy resolved -creatinine is 0.93 -we will monitor kidney function closely -hold Nirav or arbs at this time Primary hypertension -blood pressure on normal range at this time -patient sedated and intubated, not needing vasopressor at this time Dyslipidemia -continue atorvastatin 40 mg daily Morbid obesity Grade III -Lifestyle modification Will place PICC line. Downgrade patient to TY at this time. Goals of care discussed with daughter by phone for 20min, FULL CODE Critical time spent of 55 min Plan discussed with Dr. Alfaro Plan discussed with: Patient, Other (RN) Dietary Evaluation Review Comments: 1. Recommend Vital HP while on high-dose propofol; begin @ 10 ml/hr, advance by 10 ml Q4 or as tolerated to goal-rate of 50 ml/hr continuously 2. Provide minimal free water flushes for tube patency of 30 ml Q6 (120 ml total); adjust PRN 3. Monitor BMP/lytes and replete per protocol TF Provision: TF at goal to provide 1200 ml total volume, 1200 kcal (+562 via propofol = 1762 kcal), 105 gm pro, 0 gm fiber, 1103 ml H20 (meets 100% est. kcal needs, 100% est. pro needs) Expected Outcomes/Goals: Adequate nutrition, weight maintenance, improved hemodynamic stability. Critical Care Time (mins): 55 Addendum Addendum Addendum I was physically present for the dupree portions of the service provided to patient by THE RESIDENT. I have reviewed the documentation, discussed the case with resident and agree with the resident's documentation except as noted. Also the patient's clinical case was discussed with the patient's nurse. This medical document was created using an electronic medical record system with computerized dictation system. Although this document has been carefully reviewed, there might still be some phonetic and typographical errors. These areas are purely typographical due to imperfections of the software programs, and do not reflect any compromise in the patient's medical care. Late signature. Date of Service: Jun 22, 2024 Billing Provider: VY ALFARO MD Common Visit Codes: 55102-[id number] CARE 30-74 MIN (55 minutes) Secondary Visit Codes: [id number] CARE PLAN 30 MINUTES (20 minutes) QUEENIE GARCIA RESIDENT Jun 22, 2024 10:19 VY ALFARO MD Jun 23, 2024 16:42
[2024-06-22] MEDS ORDERED: VANCOMYCIN PER PHARMACY 0 MG IV SCH (12:00)
[2024-06-22] MEDS: VANCOMYCIN 1GM/200ML PM 250 ML IV SCH (14:46)
[2024-06-22] MEDS: VANCOMYCIN 1GM/200ML PM 200 ML IV ONE (20:54)
[2024-06-23] VITALS (42 sets, daily range): BP systolic 117–171; BP diastolic 68–117; PULSE 59–94; RESP 11–22; TEMP 97.9–98.6; O2SAT 94–100
[2024-06-23] MEDS: VANCOMYCIN 1GM/200ML PM 200 ML IV SCH (02:16)
[2024-06-23 04:09] LABS: Basophils # (auto) 0.1 10 ^3/uL (0-0.2); Eosinophils # (auto) 0.1 10 ^3/uL (0-0.8); Eosinophils % (auto) 0.4 % (0.0-7.0); Mean Corpuscular Volume 80.8 fL (80.0-100.0); Monocytes # (auto) 1.1 10 ^3/uL (0-1.3)
[2024-06-23 04:13] LABS: Basophils % (auto) 0.8 % (0.0-2.0); Hematocrit 42.9 % (36.0-46.0); Hemoglobin 13.9 g/dL (12.2-16.2); Lymphocytes # (auto) 2.6 10 ^3/uL (0.4-5.4); Lymphocytes % (auto) 14.7 % (10.0-50.0); Mean Corpuscular Hemoglobin 26.2 pg (28.0-32.0); Mean Corpuscular Hgb Conc. 32.4 g/dL (32.0-36.0); Monocytes % (auto) 6.3 % (0.0-12.0); Neutrophils # (auto) 13.5 10 ^3/uL (1.6-8.6); Neutrophils % (auto) 77.8 % (37.0-80.0); Nucleated Red Blood Cells % 0.1 %; Platelet Count (auto) 214 10^3/uL (140-450); Red Cell Distribution Width 17.3 % (11.8-14.3); White Blood Cell 17.4 10^3/uL (4.4-10.8)
[2024-06-23 04:26] LABS: Anion Gap 9 (5-15); Calcium 9.6 mg/dL (8.7-10.4); Carbon Dioxide 23 mmol/L (20-31); Potassium 4.4 mmol/L (3.5-5.1); Sodium 144 mmol/L (136-145)
[2024-06-23 04:29] LABS: Chloride 112 mmol/L (98-107)
[2024-06-23 04:32] LABS: BUN/Creatinine Ratio 23.4 (10.0-20.0); Blood Urea Nitrogen 22 mg/dL (9-23)
[2024-06-23 04:33] LABS: Glucose 108 mg/dL (74-106)
--- NOTE | 2024-06-23 09:08 | DVHPN2 ---
Progress Note - Dictate Date Seen: Jun 23, 2024 Has the PT tested + for MRSA If YES, has PT been informed?: No Medical Necessity Reason Pt with a Central, PICC or Fol: Yes The following are medically ne: Bae Catheter Reason for bae catheter: Strict I&O vital signs Vital Sign Date Time Temp Pulse Resp B/P (MAP) Pulse Ox O2 Delivery O2 Flow Rate FiO2 06/23/24 06:40 97 Nasal Cannula* 3 32 06/23/24 06:40 63 14 06/23/24 06:30 156/103 (120) 06/23/24 04:00 98.3 98.3 Total Intake and Output 06/22/24 06/22/24 06/23/24 15:00 23:00 07:00 Intake Total 475 ml 1145 ml 1050 ml Output Total 700 ml 750 ml Balance 475 ml 445 ml 300 ml medications Current Medications Medications Dose Ordered Sig/Maday Route Start Time Stop Time Status Last Admin Dose Admin Ondansetron HCl 4 mg Q4HP PRN IV 06/09/24 08:00 06/20/24 21:57 4 MG Hydralazine HCl 10 mg Q6HP PRN IV 06/09/24 08:00 06/22/24 06:38 10 MG Aspirin 81 mg DAILY PO 06/10/24 10:00 06/22/24 09:34 81 MG Atorvastatin Calcium 40 mg HS PO 06/09/24 22:00 06/22/24 21:36 40 MG Pantoprazole Sodium 40 mg DAILY IV 06/09/24 10:00 06/22/24 09:33 40 MG Albuterol 2.5 mg Q6HR NEB 06/09/24 12:00 06/23/24 06:40 2.5 MG Ipratropium [place] 0.5 mg Q6HR NEB 06/09/24 12:00 06/23/24 06:40 0.5 MG Amlodipine Besylate 10 mg DAILY PO 06/11/24 08:15 06/22/24 09:34 10 MG Acetylcysteine 100 mg Q6HR NEB 06/12/24 12:00 06/23/24 06:40 100 MG Enteral Nutritional Formula 1,000 ml 30ML/HR GT 06/12/24 13:15 06/16/24 23:19 1,000 ML Sodium Chloride 10 ml QSHIFT@ IV 06/14/24 10:00 06/22/24 21:36 10 ML Acetaminophen 650 mg Q6HP PRN GT 06/16/24 20:30 06/23/24 02:27 650 MG Purified Water 250 ml Q6HR GT 06/17/24 12:00 06/23/24 00:10 250 ML Fentanyl Citrate 250 ml @ 2.5 mls/hr Q24H IV 06/20/24 02:00 06/20/24 02:00 5 MLS/HR Morphine Sulfate 1 mg Q6HP PRN IV 06/20/24 17:30 06/22/24 20:47 1 MG Methylprednisolone Sodium Succinate 20 mg DAILY IV 06/21/24 10:00 06/22/24 09:33 20 MG Dextrose 1,000 ml @ 50 mls/hr Q20H IV 06/21/24 20:30 06/23/24 00:09 50 MLS/HR Piperacillin Sod/ Tazobactam Sod 100 ml @ 25 mls/hr Q8HR IV 06/22/24 00:00 06/23/24 05:31 25 MLS/HR Vancomycin HCl 0 ml @ 0 mls/hr UD IV 06/22/24 12:00 Vancomycin HCl 200 ml @ 200 mls/hr Q12H IV 06/23/24 03:00 06/23/24 02:16 200 MLS/HR laboratory and microbiology Laboratory Tests 06/23/24 03:10 Test 06/23/24 03:10 Range/Units Serum Glucose 108 H 74-106 mg/dL Assessment/Plan Impression Acute hypoxemic respiratory failure Angioedema Morbid obesity Pneumonia Patient seen and examined in ICU Events S/p extubation Low oxygen requirements On 4 liters nasal cannula Angioedema secondary to Lisinopril resolved mentation improving Labs and imaging reviewed Management Supplemental oxygen Titrate to maintain sats 90% or above Incentive spirometry Prn bipap Continue antibiotics F/u cultures Bronchodilators IV steroids Monitor renal function Monitor electrolytes Supplement as needed ambulate with PT ok to d/grade DVT prophylaxis Critical care time 35 minutes Dietary Evaluation Review Comments: 1. Recommend Vital HP while on high-dose propofol; begin @ 10 ml/hr, advance by 10 ml Q4 or as tolerated to goal-rate of 50 ml/hr continuously 2. Provide minimal free water flushes for tube patency of 30 ml Q6 (120 ml total); adjust PRN 3. Monitor BMP/lytes and replete per protocol TF Provision: TF at goal to provide 1200 ml total volume, 1200 kcal (+562 via propofol = 1762 kcal), 105 gm pro, 0 gm fiber, 1103 ml H20 (meets 100% est. kcal needs, 100% est. pro needs) Expected Outcomes/Goals: Adequate nutrition, weight maintenance, improved hemodynamic stability. Plan discussed with: Other DEQUAN MORALES MD Jun 23, 2024 09:08
--- NOTE | 2024-06-23 12:56 | DVHPN2 ---
Subjective Still confused but with no agitation Reviewed: Care Plan, H&P, Labs, Medications, Previous Orders, Radiology, Other (Consultations) Changes from previous H/P or p: Changes Objective Vitals Vital Signs Date Time Temp Pulse Resp B/P (MAP) Pulse Ox O2 Delivery O2 Flow Rate FiO2 06/23/24 12:00 98.6 71 20 149/89 (109) 95 98.6 06/23/24 12:00 Nasal Cannula* 3 32 Intake/Output Intake and Output 06/23/24 07:00 Intake Total 2720 ml Output Total 1450 ml Balance 1270 ml Intake Oral 840 ml IV Total 1880 ml Output Urine Total 1450 ml # Bowel Movements 1 General Appearance: Alert, Cooperative, No acute distress HEENT: Atraumatic Lungs: Other (Decreased air entry bilateral) Cardiovascular: Regular rate, Normal S1, Normal S2, No murmurs Abdomen: Normal bowel sounds, Soft, No tenderness Neuro: Normal speech, Cranial nerves 3-12 NL, Other (Confused) Psych/Mental Status: Mental status NL, Mood NL Medications Current Medications Medications Dose Ordered Sig/Maday Route Start Time Stop Time Status Last Admin Dose Admin Ondansetron HCl 4 mg Q4HP PRN IV 06/09/24 08:00 06/20/24 21:57 4 MG Hydralazine HCl 10 mg Q6HP PRN IV 06/09/24 08:00 06/22/24 06:38 10 MG Aspirin 81 mg DAILY PO 06/10/24 10:00 06/23/24 09:33 81 MG Atorvastatin Calcium 40 mg HS PO 06/09/24 22:00 06/22/24 21:36 40 MG Pantoprazole Sodium 40 mg DAILY IV 06/09/24 10:00 06/23/24 09:32 40 MG Albuterol 2.5 mg Q6HR NEB 06/09/24 12:00 06/23/24 11:02 2.5 MG Ipratropium [place] 0.5 mg Q6HR NEB 06/09/24 12:00 06/23/24 11:02 0.5 MG Amlodipine Besylate 10 mg DAILY PO 06/11/24 08:15 06/23/24 09:34 10 MG Acetylcysteine 100 mg Q6HR NEB 06/12/24 12:00 06/23/24 11:02 100 MG Enteral Nutritional Formula 1,000 ml 30ML/HR GT 06/12/24 13:15 06/16/24 23:19 1,000 ML Sodium Chloride 10 ml QSHIFT@10,22 IV 06/14/24 10:00 06/23/24 09:33 10 ML Acetaminophen 650 mg Q6HP PRN GT 06/16/24 20:30 06/23/24 02:27 650 MG Purified Water 250 ml Q6HR GT 06/17/24 12:00 06/23/24 00:10 250 ML Fentanyl Citrate 250 ml @ 2.5 mls/hr Q24H IV 06/20/24 02:00 06/20/24 02:00 5 MLS/HR Morphine Sulfate 1 mg Q6HP PRN IV 06/20/24 17:30 06/22/24 20:47 1 MG Methylprednisolone Sodium Succinate 20 mg DAILY IV 06/21/24 10:00 06/23/24 09:32 20 MG Dextrose 1,000 ml @ 50 mls/hr Q20H IV 06/21/24 20:30 06/23/24 00:09 50 MLS/HR Piperacillin Sod/ Tazobactam Sod 100 ml @ 25 mls/hr Q8HR IV 06/22/24 00:00 06/23/24 05:31 25 MLS/HR Vancomycin HCl 0 ml @ 0 mls/hr UD IV 06/22/24 12:00 Vancomycin HCl 200 ml @ 200 mls/hr Q12H IV 06/23/24 03:00 06/23/24 02:16 200 MLS/HR Laboratory Results Laboratory Tests 06/23/24 03:10 Chemistry Test 06/23/24 03:10 Calcium Level 9.6 mg/dL (8.7-10.4) Urinalysis Test 06/09/24 04:19 Urine Color Colorless (Yellow) Urine Clarity Clear (Clear) Urine pH 6.0 (5.0-9.0) Urine Specific [place] 1.005 (1.001-1.035) Urine Protein Negative (Negative) Urine Ketones Negative (Negative) Urine Blood Negative /uL (Negative) Urine Nitrite Negative (Negative) Urine Bilirubin Negative (Negative) Urine Urobilinogen Normal mg/dL (Negative) Urine Leukocyte Esterase Negative /uL (Negative) Urine RBC 1 /hpf (0 - 4) Urine Microscopic WBC < 1 /HPF (0-5) Urine Squamous Epithelial Cells Few /hpf (<5) Urine Bacteria Few /hpf (None Seen) H Urine Mucus Few (None Seen) Urine Glucose Normal mg/dL (Normal) Microbiology Microbiology Date/Time Source Procedure Growth Status 06/18/24 23:20 Voided Urine Urine Culture - Final Complete 06/16/24 23:54 Blood Blood Culture - Final NO GROWTH AFTER 5 DAYS OF INCUBATION. Complete 06/16/24 22:10 Bronchial Washings Gram Stain - Final Complete 06/16/24 22:10 Bronchial Washings Respiratory Culture - Final Complete 06/10/24 18:10 Nose MRSA Screen - Final Complete Labs and/or images reviewed: Labs reviewed by me, Image(s) reviewed by me Assessment/Plan Assessment/Plan Covering: Acute metabolic/toxic encephalopathy; with delirium; still confused; not agitated Acute anaphylactic reaction, unknown etiology/trigger; resolved Acute angioedema; resolved Severe sepsis with leukocytosis and lactic acidosis due to suspected aspiration pneumonia Acute hypoxic respiratory failure; status post intubation and mechanical ventilation DI; most likely vasomotor nephropathy Acute on chronic systolic heart failure NSTEMI; most likely demand ischemia; most likely type 2; in the setting of severe sepsis Suspected aspiration pneumonia Morbid obesity Reviewed lab work including ABGs Reviewed imaging studies including chest x-rays Reviewed available cultures Continue IV antibiotics Continue IV steroids Continue IV diuresis Continue oxygen therapy as indicated Avoid nephrotoxic agents One-to-one sitter Aspiration precautions Cardiology, ID, and pulmonology are following Telemetry Continue monitoring Late Entry. This medical document was created using an electronic medical record system with computerized dictation system. Although this document has been carefully reviewed, there might still be some phonetic and typographical errors. These areas are purely typographical due to imperfections of the software programs, and do not reflect any compromise in the patient's medical care. Plan discussed with: Patient, Other (Nurse) My Orders Orders - VY ALFARO MD Procedure Category Date Status Time Transfer Orders XFER 06/23/24 Transmitted 10:52 Date of Service: Jun 23, 2024 Billing Provider: VY ALFARO MD Common Visit Codes: [id number] INP/OBS CARE(HIGH) VY ALFARO MD Jun 23, 2024 12:56
[2024-06-24] VITALS (17 sets, daily range): BP systolic 110–157; BP diastolic 70–96; PULSE 56–80; RESP 16–22; TEMP 97.5–98.3; O2SAT 92–100
[2024-06-24 08:21] LABS: Basophils # (auto) 0 10 ^3/uL (0-0.2); Basophils % (auto) 0.2 % (0.0-2.0); Eosinophils # (auto) 0.1 10 ^3/uL (0-0.8); Eosinophils % (auto) 0.8 % (0.0-7.0); Hematocrit 43.7 % (36.0-46.0); Hemoglobin 13.7 g/dL (12.2-16.2); Lymphocytes # (auto) 3.1 10 ^3/uL (0.4-5.4); Lymphocytes % (auto) 18.9 % (10.0-50.0); Mean Corpuscular Hemoglobin 25.6 pg (28.0-32.0); Mean Corpuscular Hgb Conc. 31.5 g/dL (32.0-36.0); Mean Corpuscular Volume 81.3 fL (80.0-100.0); Monocytes # (auto) 1.2 10 ^3/uL (0-1.3); Monocytes % (auto) 7.2 % (0.0-12.0); Neutrophils # (auto) 11.9 10 ^3/uL (1.6-8.6); Neutrophils % (auto) 72.9 % (37.0-80.0); Platelet Count (auto) 221 10^3/uL (140-450); Red Blood Cells 5.37 10^6/uL (4.0-5.20); White Blood Cell 16.3 10^3/uL (4.4-10.8)
[2024-06-24 08:49] LABS: Alanine Aminotransferase 35 U/L (7-40); Anion Gap 11 (5-15); BUN/Creatinine Ratio 19.8 (10.0-20.0); Blood Urea Nitrogen 17 mg/dL (9-23); Calcium 10.1 mg/dL (8.7-10.4); Carbon Dioxide 23 mmol/L (20-31); Glucose 94 mg/dL (74-106); Magnesium 1.9 mg/dL (1.6-2.6); Potassium 3.8 mmol/L (3.5-5.1); Sodium 142 mmol/L (136-145); Total Protein 7.1 g/dL (5.7-8.2)
[2024-06-24 08:50] LABS: Albumin 4.2 g/dL (3.2-4.8); Aspartate Aminotransferase 31 U/L (13-40)
[2024-06-24 08:51] LABS: Alkaline Phosphatase 119 U/L (46-116); Bilirubin, Total 0.9 mg/dL (0.2-1.0); Chloride 108 mmol/L (98-107)
--- NOTE | 2024-06-24 09:01 | DVHPN2 ---
Progress Note - Dictate Date Seen: Jun 24, 2024 Has the PT tested + for MRSA If YES, has PT been informed?: No Medical Necessity Reason Pt with a Central, PICC or Fol: Yes The following are medically ne: Bae Catheter Reason for bae catheter: Strict I&O Subjective Patient is currently on 2 L of oxygen through nasal cannula. Patient still reports mild shortness of breaths but no additional complaints or symptoms at this time. vital signs Vital Sign Date Time Temp Pulse Resp B/P (MAP) Pulse Ox O2 Delivery O2 Flow Rate FiO2 06/24/24 07:14 76 16 136/82 06/24/24 06:13 100 06/24/24 06:05 Nasal Cannula 2.0 06/24/24 06:05 28 06/24/24 05:00 97.5 97.5 Total Intake and Output 06/23/24 06/23/24 06/24/24 15:00 23:00 07:00 Intake Total 450 ml 225 ml 300 ml Output Total 625 ml Balance 450 ml -400 ml 300 ml medications Current Medications Medications Dose Ordered Sig/Maday Route Start Time Stop Time Status Last Admin Dose Admin Ondansetron HCl 4 mg Q4HP PRN IV 06/09/24 08:00 06/20/24 21:57 4 MG Hydralazine HCl 10 mg Q6HP PRN IV 06/09/24 08:00 06/23/24 16:12 10 MG Aspirin 81 mg DAILY PO 06/10/24 10:00 06/23/24 09:33 81 MG Atorvastatin Calcium 40 mg HS PO 06/09/24 22:00 06/23/24 22:22 40 MG Pantoprazole Sodium 40 mg DAILY IV 06/09/24 10:00 06/23/24 09:32 40 MG Albuterol 2.5 mg Q6HR NEB 06/09/24 12:00 06/24/24 06:05 2.5 MG Ipratropium [place] 0.5 mg Q6HR NEB 06/09/24 12:00 06/24/24 06:05 0.5 MG Amlodipine Besylate 10 mg DAILY PO 06/11/24 08:15 06/23/24 09:34 10 MG Acetylcysteine 100 mg Q6HR NEB 06/12/24 12:00 06/24/24 06:05 100 MG Sodium Chloride 10 ml QSHIFT@10,22 IV 06/14/24 10:00 06/23/24 22:22 10 ML Acetaminophen 650 mg Q6HP PRN GT 06/16/24 20:30 06/23/24 02:27 650 MG Morphine Sulfate 1 mg Q6HP PRN IV 06/20/24 17:30 06/24/24 06:44 1 MG Piperacillin Sod/ Tazobactam Sod 100 ml @ 25 mls/hr Q8HR IV 06/22/24 00:00 06/24/24 06:04 25 MLS/HR Vancomycin HCl 0 ml @ 0 mls/hr UD IV 06/22/24 12:00 Vancomycin HCl 200 ml @ 200 mls/hr Q12H IV 06/23/24 03:00 06/24/24 03:10 200 MLS/HR objective General: Patient alert and oriented in person and place but not in time. S/P extubation. HEENT: Normocephalic, atraumatic, moist mucous membranes Respiratory/pulmonary: Clear lungs bilaterally, no associated crackles or wheezes. Cardiovascular: Normal heart sounds S1 and S2 with no associated murmurs Abdomen: Abdomen nondistended, there is no pain to palpation in any of the abdominal quadrants, no palpable masses. Extremities: There is no peripheral edema present at the lower extremities. Skin: No rashes or pruritus, there is no sacral edema present at this time. laboratory and microbiology Laboratory Tests 06/24/24 07:30 Test 06/24/24 07:30 Range/Units Serum Glucose 94 74-106 mg/dL Assessment/Plan Patient is a 63-year-old male presents to the hospital with: Lactic acidosis resolved Angioedema Acute hypoxic respiratory failure s/p extubation Leucocytosis Delirium Recommendations Antibiotics resumed by Primary Team, on IV Doxycycline and Zosyn. However I advised to switched Doxycycline to Vancomycin IV Discontinue Antibiotics Repeat 2 sets of blood culture, cultures reviewed came back negative Blood pressure is stable Will monitor for any acute worsening He is receiving broad spectrum antibiotics Doxycycline and Zosyn since 06/10, Leucocytosis is likely reactive personally reviewed imaging CXR no infiltrate monitor WBC, trending down 06/24, WBC trending down, currently at 16.3K Antibiotic status: Doxycycline IV [Started on 06/10 - Ongoing] Zosyn IV [Started on 06/13 - Ongoing] It's unclear what is the reason for Angioedema. Review of culture: 06/09, Respiratory culture showed no growth 06/10, MRSA screening negative 06/13, Respiratory culture showed no growth 06/16, Respiratory culture showed no growth 06/16, Blood culture showed no growth 06/18, Urine culture showed no growth Plan discussed with Primary Team A total of 50 minutes was spent performing this encounter on this date of service. My evaluation of this patient included review of the chart, history, laboratory, imaging findings and discussion with the patient and or family, treatment team placing orders and documenting the plan. Thank you for consult Dietary Evaluation Review Comments: 1. Recommend Vital HP while on high-dose propofol; begin @ 10 ml/hr, advance by 10 ml Q4 or as tolerated to goal-rate of 50 ml/hr continuously 2. Provide minimal free water flushes for tube patency of 30 ml Q6 (120 ml total); adjust PRN 3. Monitor BMP/lytes and replete per protocol TF Provision: TF at goal to provide 1200 ml total volume, 1200 kcal (+562 via propofol = 1762 kcal), 105 gm pro, 0 gm fiber, 1103 ml H20 (meets 100% est. kcal needs, 100% est. pro needs) Expected Outcomes/Goals: Adequate nutrition, weight maintenance, improved hemodynamic stability. Plan discussed with: AMY Soliman MD Jun 24, 2024 09:01
--- NOTE | 2024-06-24 10:28 | DVHPNRES ---
Progress Note Date Seen: Jun 24, 2024 Resident Creating Document: CHRIS JOSE RESIDENT Has the PT tested + for MRSA If YES, has PT been informed?: No Medical Necessity Reason Pt with a Central, PICC or Fol: Yes The following are medically ne: Bae Catheter Reason for bae catheter: Strict I&O Subjective Review of Systems This is a 63-year-old female with past medical history of hypertension and morbid obesity grade 3, who presented to the ED with chief complaint of allergic reaction. Upon admission, the patient was complaining of mild shortness of breath, facial swelling, tongue swelling, throat swelling and wheezes. Patient was evaluated by the ED staff and decision to secure airway was taken to prevent airway collapse. Patient was intubated and placed on mechanical ventilator. Initial parameters were VT 500, RR 22, FiO2 55%, peep 10. Patient was started on methylprednisolone 60 mg b.i.d., sedation. Prophylactic dose of enoxaparin. Patient was admitted for further assessment and management. Patient seen and examined at bedside. Today, patient looks more alert and oriented in person, place and time. There is no signs of the [place] at this time. Patient is currently on 2 L of oxygen through nasal cannula, we will try to titrate down oxygen to room air. Patient is currently on IV vancomycin and Zosyn for aspiration pneumonia. We will continue this therapy at this time we will discontinue steroids. Patient needs to keep working on physical therapy and do incentive spirometry. We will progress the diet to cardiac diet. Patient still reports mild shortness of breaths but no additional complaints or symptoms at this time. ROS Constitutional: Denies weight loss, fever and chills. HEENT: Denies changes in vision and hearing. Respiratory: Denies shortness of breath and cough Cardiovascular: Denies chest discomfort or palpitations GI: Denies abdominal pain, nausea, vomiting and diarrhea. : Denies dysuria and urinary frequency. Musculoskeletal: Denies myalgias and joint pain Skin: Denies rash and pruritus. Neurological: Denies dizziness, headache, vision or hearing problems Objective vital signs Vital Sign Date Time Temp Pulse Resp B/P (MAP) Pulse Ox O2 Delivery O2 Flow Rate FiO2 06/24/24 09:51 142/80 06/24/24 07:14 76 16 06/24/24 06:13 100 06/24/24 06:05 Nasal Cannula 2.0 4/28/25 06:05 28 06/24/24 05:00 97.5 97.5 Total Intake and Output 06/23/24 06/23/24 06/24/24 15:00 23:00 07:00 Intake Total 450 ml 225 ml 300 ml Output Total 625 ml Balance 450 ml -400 ml 300 ml medications Current Medications Medications Dose Ordered Sig/Maday Route Start Time Stop Time Status Last Admin Dose Admin Ondansetron HCl 4 mg Q4HP PRN IV 06/09/24 08:00 06/20/24 21:57 4 MG Hydralazine HCl 10 mg Q6HP PRN IV 06/09/24 08:00 06/23/24 16:12 10 MG Aspirin 81 mg DAILY PO 06/10/24 10:00 06/24/24 09:52 81 MG Atorvastatin Calcium 40 mg HS PO 06/09/24 22:00 06/23/24 22:22 40 MG Pantoprazole Sodium 40 mg DAILY IV 06/09/24 10:00 06/24/24 09:53 40 MG Albuterol 2.5 mg Q6HR NEB 06/09/24 12:00 06/24/24 06:05 2.5 MG Ipratropium [place] 0.5 mg Q6HR NEB 06/09/24 12:00 06/24/24 06:05 0.5 MG Amlodipine Besylate 10 mg DAILY PO 06/11/24 08:15 06/24/24 09:51 10 MG Acetylcysteine 100 mg Q6HR NEB 06/12/24 12:00 06/24/24 06:05 100 MG Sodium Chloride 10 ml QSHIFT@10,22 IV 06/14/24 10:00 06/24/24 09:53 10 ML Acetaminophen 650 mg Q6HP PRN GT 06/16/24 20:30 06/23/24 02:27 650 MG Morphine Sulfate 1 mg Q6HP PRN IV 06/20/24 17:30 06/24/24 06:44 1 MG Piperacillin Sod/ Tazobactam Sod 100 ml @ 25 mls/hr Q8HR IV 06/22/24 00:00 06/24/24 06:04 25 MLS/HR Vancomycin HCl 0 ml @ 0 mls/hr UD IV 06/22/24 12:00 Vancomycin HCl 200 ml @ 200 mls/hr Q12H IV 06/23/24 03:00 06/24/24 03:10 200 MLS/HR Examination Physical Examination General: Patient alert and oriented in person, place and time. patient follows command. HEENT: Normocephalic, atraumatic, moist mucous membranes Respiratory/pulmonary: Clear lungs bilaterally, no associated crackles or wheezes. Currently on 2 L of oxygen through nasal cannula. Cardiovascular: Normal heart sounds S1 and S2 with no associated murmurs Abdomen: Abdomen nondistended, there is no pain to palpation in any of the abdominal quadrants, no palpable masses. Extremities: There is no peripheral edema present at the lower extremities. Peripheral Pulses: 3+ Radial (R). 3+ Radial (L). 3+ Dorsalis pedis (R). 3+ Dorsalis pedis(L) Skin: No rashes or pruritus, there is no sacral edema present at this time. laboratory and microbiology Laboratory Tests 06/24/24 07:30 Test 06/24/24 07:30 Range/Units Serum Glucose 94 74-106 mg/dL Microbiology Date/Time Source Procedure Growth Status 06/22/24 14:47 Blood Blood Culture - Preliminary NO GROWTH AFTER 24 HOURS OF INCUBATION. Resulted 06/18/24 23:20 Voided Urine Urine Culture - Final Complete 06/16/24 22:10 Bronchial Washings Gram Stain - Final Complete 06/16/24 22:10 Bronchial Washings Respiratory Culture - Final Complete 06/10/24 18:10 Nose MRSA Screen - Final Complete Labs and/or images reviewed: Labs reviewed by me, Image(s) reviewed by me Problem List/Assessment/Plan Problem List/Assessment/Plan Assessment/Plan Acute anaphylactic reaction, unkown source Acute angioedema Sepsis with acute organ dysfunction kidney Acute hypoxic respiratory failure likely due to above -patient was having facial swelling, tongue, throat swelling and decision was to intubate to protect airway -patient is currently on 2 L of oxygen through nasal cannula, will titrate O2 down. -monitor ABG -discontinue steroids at this time -sedated on propofol, Versed. Analgesia with fentanyl -keep saturation above 92% -bronchoscopy was performed yesterday on 06/16/2024, no complications, bilateral mucus plugs were removed from right and left lower lobes of the lung. -there was no air leak present at this time. We will give a single dose of Decadron 6 mg IV and increase methylprednisolone to 40mg b.i.d. -patient is status post extubation on 06/20/2024. -diet to cardiac diet. Sepsis due to possible aspiration pneumonia POA Possible aspiration pneumonitis not present on admission -Continue on IV Zosyn -Continue IV vancomycin -Monitor Chest xrays -patient is status post extubation on 06/20/2024. 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% -echocardiogram showed LVEF of 45% with apical wall abnormalities and hypokinesis -EKG showed sinus rhythm with right bundle branch block and T-wave inversion in all leads -troponins were elevated -Discontinue bumex to 2 mg BID -currently on cardiac diet Acute hypernatremia -D5W/o.45%NS 500cc IV fluids -Na 153, now 142, slightly improving NSTEMI type 2 likely due to above -trend troponin -cardiology on the case ID likely due to vasomotor nephropathy, resolved -creatinine was 1.03, Cr 0.86 -we will monitor kidney function closely -hold Nirav or arbs at this time Primary hypertension -blood pressure on normal range at this time -patient sedated and intubated, not needing vasopressor at this time Dyslipidemia -continue atorvastatin 40 mg daily Morbid obesity Grade III -Lifestyle modification Plan discussed with Dr. Alfaro Plan discussed with: Patient, Other (Nurse) My Orders My Orders Orders - CHRIS JOSE RESIDENT Procedure Category Date Status Time Cardiac DIET 06/24/24 Transmitted Diet-2gna,Lofat,Lochol Breakfast Incentive Spirometry ORDERS 06/24/24 Transmitted 06:57 Incentive Spirometry ORDERS 06/24/24 Transmitted 08:34 Pt Request For Service PT 06/24/24 Logged 08:34 Pt Request For Service PT 06/24/24 Transmitted 10:20 Incentive Spirometry ORDERS 06/24/24 Transmitted 10:20 Dietary Evaluation Review Comments: 1. Recommend Vital HP while on high-dose propofol; begin @ 10 ml/hr, advance by 10 ml Q4 or as tolerated to goal-rate of 50 ml/hr continuously 2. Provide minimal free water flushes for tube patency of 30 ml Q6 (120 ml total); adjust PRN 3. Monitor BMP/lytes and replete per protocol TF Provision: TF at goal to provide 1200 ml total volume, 1200 kcal (+562 via propofol = 1762 kcal), 105 gm pro, 0 gm fiber, 1103 ml H20 (meets 100% est. kcal needs, 100% est. pro needs) Expected Outcomes/Goals: Adequate nutrition, weight maintenance, improved hemodynamic stability. Addendum Addendum Addendum I was physically present for the dupree portions of the service provided to patient by THE RESIDENT. I have reviewed the documentation, discussed the case with resident and agree with the resident's documentation except as noted. Also the patient's clinical case was discussed with the patient's nurse. This medical document was created using an electronic medical record system with computerized dictation system. Although this document has been carefully reviewed, there might still be some phonetic and typographical errors. These areas are purely typographical due to imperfections of the software programs, and do not reflect any compromise in the patient's medical care. Late signature. Date of Service: Jun 24, 2024 Billing Provider: VY ALFARO MD Common Visit Codes: [id number] INP/OBS CARE(HIGH) CHRIS JOSE RESIDENT Jun 24, 2024 10:28 VY ALFARO MD Jun 26, 2024 05:49
--- NOTE | 2024-06-24 12:38 | DVHPN2 ---
Progress Note - Dictate Date Seen: Jun 24, 2024 Has the PT tested + for MRSA If YES, has PT been informed?: No Medical Necessity Reason Pt with a Central, PICC or Fol: Yes The following are medically ne: Bae Catheter Reason for bae catheter: Strict I&O vital signs Vital Sign Date Time Temp Pulse Resp B/P (MAP) Pulse Ox O2 Delivery O2 Flow Rate FiO2 06/24/24 11:23 63 16 100 06/24/24 11:17 Nasal Cannula 2.0 06/24/24 11:17 28 06/24/24 09:51 142/80 06/24/24 05:00 97.5 97.5 Total Intake and Output 06/23/24 06/23/24 06/24/24 15:00 23:00 07:00 Intake Total 450 ml 225 ml 300 ml Output Total 625 ml Balance 450 ml -400 ml 300 ml medications Current Medications Medications Dose Ordered Sig/Maday Route Start Time Stop Time Status Last Admin Dose Admin Ondansetron HCl 4 mg Q4HP PRN IV 06/09/24 08:00 06/20/24 21:57 4 MG Hydralazine HCl 10 mg Q6HP PRN IV 06/09/24 08:00 06/23/24 16:12 10 MG Aspirin 81 mg DAILY PO 06/10/24 10:00 06/24/24 09:52 81 MG Atorvastatin Calcium 40 mg HS PO 06/09/24 22:00 06/23/24 22:22 40 MG Pantoprazole Sodium 40 mg DAILY IV 06/09/24 10:00 06/24/24 09:53 40 MG Albuterol 2.5 mg Q6HR NEB 06/09/24 12:00 06/24/24 11:17 2.5 MG Ipratropium [place] 0.5 mg Q6HR NEB 06/09/24 12:00 06/24/24 11:17 0.5 MG Amlodipine Besylate 10 mg DAILY PO 06/11/24 08:15 06/24/24 09:51 10 MG Sodium Chloride 10 ml QSHIFT@10,22 IV 06/14/24 10:00 06/24/24 09:53 10 ML Acetaminophen 650 mg Q6HP PRN GT 06/16/24 20:30 06/23/24 02:27 650 MG Morphine Sulfate 1 mg Q6HP PRN IV 06/20/24 17:30 06/24/24 06:44 1 MG Piperacillin Sod/ Tazobactam Sod 100 ml @ 25 mls/hr Q8HR IV 06/22/24 00:00 06/24/24 06:04 25 MLS/HR Vancomycin HCl 0 ml @ 0 mls/hr UD IV 06/22/24 12:00 Vancomycin HCl 200 ml @ 200 mls/hr Q12H IV 06/23/24 03:00 06/24/24 03:10 200 MLS/HR laboratory and microbiology Laboratory Tests 06/24/24 07:30 Test 06/24/24 07:30 Range/Units Serum Glucose 94 74-106 mg/dL Assessment/Plan Impression Acute hypoxemic respiratory failure Angioedema Morbid obesity Pneumonia Patient seen and examined in ICU Events S/p extubation Low oxygen requirements On 4 liters nasal cannula Angioedema secondary to Lisinopril resolved s/p d/grade following commands Labs and imaging reviewed Management Supplemental oxygen Titrate to maintain sats 90% or above Incentive spirometry Prn bipap at night Continue antibiotics F/u cultures Bronchodilators IV steroids Monitor renal function Monitor electrolytes Supplement as needed ambulate with PT ok to d/grade DVT prophylaxis dispo per primary team Dietary Evaluation Review Comments: 1. Recommend Vital HP while on high-dose propofol; begin @ 10 ml/hr, advance by 10 ml Q4 or as tolerated to goal-rate of 50 ml/hr continuously 2. Provide minimal free water flushes for tube patency of 30 ml Q6 (120 ml total); adjust PRN 3. Monitor BMP/lytes and replete per protocol TF Provision: TF at goal to provide 1200 ml total volume, 1200 kcal (+562 via propofol = 1762 kcal), 105 gm pro, 0 gm fiber, 1103 ml H20 (meets 100% est. kcal needs, 100% est. pro needs) Expected Outcomes/Goals: Adequate nutrition, weight maintenance, improved hemodynamic stability. Plan discussed with: Patient, Other (rn) DEQUAN MORALES MD Jun 24, 2024 12:38
[2024-06-25] VITALS (10 sets, daily range): BP systolic 125–142; BP diastolic 83–96; PULSE 58–79; RESP 16–96; TEMP 97.9–98.1; O2SAT 96–100
[2024-06-25 08:15] LABS: Basophils # (auto) 0.1 10 ^3/uL (0-0.2); Basophils % (auto) 0.6 % (0.0-2.0); Eosinophils # (auto) 0.2 10 ^3/uL (0-0.8); Eosinophils % (auto) 2.3 % (0.0-7.0); Hematocrit 39.1 % (36.0-46.0); Hemoglobin 12.8 g/dL (12.2-16.2); Lymphocytes # (auto) 1.9 10 ^3/uL (0.4-5.4); Lymphocytes % (auto) 18.5 % (10.0-50.0); Mean Corpuscular Hemoglobin 26.2 pg (28.0-32.0); Mean Corpuscular Hgb Conc. 32.7 g/dL (32.0-36.0); Mean Corpuscular Volume 80.3 fL (80.0-100.0); Monocytes # (auto) 0.7 10 ^3/uL (0-1.3); Monocytes % (auto) 6.7 % (0.0-12.0); Neutrophils # (auto) 7.5 10 ^3/uL (1.6-8.6); Neutrophils % (auto) 71.9 % (37.0-80.0); Nucleated Red Blood Cells % 0.1 %; Platelet Count (auto) 168 10^3/uL (140-450); Red Blood Cells 4.87 10^6/uL (4.0-5.20); Red Cell Distribution Width 16.6 % (11.8-14.3); White Blood Cell 10.5 10^3/uL (4.4-10.8)
[2024-06-25 08:41] LABS: Anion Gap 9 (5-15); Carbon Dioxide 25 mmol/L (20-31); Potassium 3.6 mmol/L (3.5-5.1); Sodium 142 mmol/L (136-145)
[2024-06-25 08:42] LABS: Calcium 9.7 mg/dL (8.7-10.4)
[2024-06-25 08:47] LABS: BUN/Creatinine Ratio 22.5 (10.0-20.0); Blood Urea Nitrogen 18 mg/dL (9-23); Glucose 93 mg/dL (74-106)
[2024-06-25 08:49] LABS: Chloride 108 mmol/L (98-107)
[2024-06-25] MEDS ORDERED: ASPI-325 PO (10:21)
[2024-06-25] MEDS ORDERED: EMPA1TAB PO (10:21)
[2024-06-25] MEDS ORDERED: AMLO1TAB23 PO (10:21)
[2024-06-25] MEDS ORDERED: HYDR12.59 PO (10:21)
--- NOTE | 2024-06-25 10:34 | DVHDSRES ---
Discharge Summary Date of Admission Resident Creating Document: CHRIS JOSE RESIDENT Jun 09, 2024 at 07:51 Date of Discharge: Jun 25, 2024 Admitting Diagnosis Acute severe allergic reaction causing anaphylaxis and angioedema Wounds: No wounds present at this time. Labs/Diagnostic Data: Laboratory Results Test 06/25/24 07:58 06/24/24 14:28 06/24/24 07:30 06/22/24 03:48 White Blood Count 10.5 10^3/uL (4.4-10.8) Red Blood Count 4.87 10^6/uL (4.0-5.20) Hemoglobin 12.8 g/dL (12.2-16.2) Hematocrit 39.1 % (36.0-46.0) Mean Corpuscular Volume 80.3 fL (80.0-100.0) Mean Corpuscular Hemoglobin 26.2 pg (28.0-32.0) Mean Corpuscular Hemoglobin Concent 32.7 g/dL (32.0-36.0) Red Cell Distribution Width 16.6 % (11.8-14.3) Platelet Count 168 10^3/uL (140-450) Mean Platelet Volume 8.7 fL (6.9-10.8) Neutrophils (%) (Auto) 71.9 % (37.0-80.0) Lymphocytes (%) (Auto) 18.5 % (10.0-50.0) Monocytes (%) (Auto) 6.7 % (0.0-12.0) Eosinophils (%) (Auto) 2.3 % (0.0-7.0) Basophils (%) (Auto) 0.6 % (0.0-2.0) Neutrophils # (Auto) 7.5 10 ^3/uL (1.6-8.6) Lymphocytes # (Auto) 1.9 10 ^3/uL (0.4-5.4) Monocytes # (Auto) 0.7 10 ^3/uL (0-1.3) Eosinophils # (Auto) 0.2 10 ^3/uL (0-0.8) Basophils # (Auto) 0.1 10 ^3/uL (0-0.2) Nucleated Red Blood Cells 0.1 % Sodium Level 142 mmol/L (136-145) Potassium Level 3.6 mmol/L (3.5-5.1) Chloride Level 108 mmol/L (98-107) Carbon Dioxide Level 25 mmol/L (20-31) Anion Gap 9 (5-15) Blood Urea Nitrogen 18 mg/dL (9-23) Creatinine 0.80 mg/dL (0.550-1.02) Glomerular Filtration Rate Calc 83 mL/min (>90) BUN/Creatinine Ratio 22.5 (10.0-20.0) Serum Glucose 93 mg/dL (74-106) Calcium Level 9.7 mg/dL (8.7-10.4) Vancomycin Level Trough 52.3 ug/mL (5-10) Magnesium Level 1.9 mg/dL (1.6-2.6) Total Bilirubin 0.9 mg/dL (0.2-1.0) Aspartate Amino Transferase (AST) 31 U/L (13-40) Alanine Aminotransferase (ALT) 35 U/L (7-40) Alkaline Phosphatase 119 U/L (46-116) Total Protein 7.1 g/dL (5.7-8.2) Albumin 4.2 g/dL (3.2-4.8) Lactic Acid Level 1.3 mmol/L (0.4-2.0) Test 06/21/24 23:14 06/21/24 21:31 06/20/24 09:33 06/19/24 07:23 Blood Gas Specimen Type Arterial Blood Gas Sample Site Left brachial Blood Gas Patient Temperature 37.0 Arterial Blood Date Drawn [id number] Arterial Blood pH 7.453 (7.350-7.450) Arterial Blood Partial Pressure CO2 34.5 mmHg (32.0-45.0) Arterial Blood Partial Pressure O2 81.6 mmHg (83.0-108.0) Arterial Blood HCO3 23.6 mmol/L (21.0-28.0) Arterial Blood Oxygen Saturation 95.4 % (94.0-98.0) Arterial Blood Base Excess 0.3 mmol/L (-2.0-3.0) Arterial Blood Oxyhemoglobin 94.9 % (94.0-98.0) Arterial Blood Carboxyhemoglobin 0.2 % (0.5-1.5) Arterial Blood Methemoglobin 0.3 % (0.0-1.5) Ken Test N/a Blood Gas Total Hemoglobin 15.30 g/dL (12.0-16.0) Blood Gas Liter Flow 6.00 Blood Gas Modality Nasal cannula FiO2 % 44.0 Differential Total Cells Counted 100.0 (100) Neutrophils % (Manual) 70 (37.0-80.0) Band Neutrophils % (Manual) 0 Lymphocytes % (Manual) 27 (10.0-50.0) Monocytes % (Manual) 3 (0-12) Eosinophils % (Manual) 0 (0-7) Basophils % (Manual) 0 (0.0-2.0) Metamyelocytes % (manual) 0 Myelocytes % (Manual) 0 Promyelocytes % (Manual) 0 Blast Cells % (Manual) 0 Reactive Lymphocytes 0 Platelet Estimate Adequate Blood Gas Spontaneous Rate 23 Blood Gas Spontaneous Tidal Volume 616 Blood Gas Inspiratory Pressure 14.0 Blood Gas PEEP or CPAP 5.0 Bl Gas Inspiratory/Expiratory Ratio 1:1.5 Specimen Drawn By MessageMee rt Blood Gas Notified By MessageMee rt Blood Gas Set Respiration Rate 20.0 Blood Gas Tidal Volume 500.0 Test 06/16/24 03:00 06/14/24 10:11 06/09/24 12:35 06/09/24 10:11 Phosphorus Level 2.7 mg/dL (2.4-5.1) Prothrombin Time 10.6 sec (9.3-11.8) Prothrombin Time INR 1.00 (0.9-1.15) Activated Partial Thromboplast Time 23.9 SEC (24.5-34.5) Troponin I High Sensitivity 517 ng/L (</=34) Influenza Type A Antigen Negative (Negative) Influenza Type B Antigen Negative (Negative) SARS-CoV-2 Antigen (Rapid) Negative (NEGATIVE) Test 06/09/24 08:03 06/09/24 04:19 06/09/24 02:44 Triglycerides Level 163 mg/dL (< 150) Cholesterol Level 190 mg/dL (< 200) LDL Cholesterol 134 mg/dL (< 100) HDL Cholesterol 31 mg/dL (40-59) Thyroid Stimulating Hormone (TSH) 1.76 uIU/mL (0.55-4.78) Urine Color Colorless (Yellow) Urine Clarity Clear (Clear) Urine pH 6.0 (5.0-9.0) Urine Specific [place] 1.005 (1.001-1.035) Urine Protein Negative (Negative) Urine Ketones Negative (Negative) Urine Blood Negative /uL (Negative) Urine Nitrite Negative (Negative) Urine Bilirubin Negative (Negative) Urine Urobilinogen Normal mg/dL (Negative) Urine Leukocyte Esterase Negative /uL (Negative) Urine RBC 1 /hpf (0 - 4) Urine Microscopic WBC < 1 /HPF (0-5) Urine Squamous Epithelial Cells Few /hpf (<5) Urine Bacteria Few /hpf (None Seen) Urine Mucus Few (None Seen) Urine Glucose Normal mg/dL (Normal) Hemoglobin A1c 6.1 % A1C (<5.7) B-Type Natriuretic Peptide 20.54 pg/mL (0-100) Other Laboratory Tests 06/25/24 07:58 Brief Hx & Hospital Course: This is a 63-year-old female with past medical history of hypertension and morbid obesity grade 3, who presented to the ED with chief complaint of allergic reaction. Upon admission, the patient was complaining of mild shortness of breath, facial swelling, tongue swelling, throat swelling and wheezes. Patient was evaluated by the ED staff and decision to secure airway was taken to prevent airway collapse. Patient was intubated and placed on mechanical ventilator. Initial parameters were VT 500, RR 22, FiO2 55%, peep 10. Patient was started on methylprednisolone 60 mg b.i.d., patient was intubated for almost 13 days in the ICU. Bronchoscopy was performed and they removed bilateral mucus plugs on both lower lung lopez. Patient had an aspiration pneumonia for which the patient was started on IV Zosyn and doxycycline. Patient was successfully extubated and completed IV antibiotic therapy. Infectious Disease was involved and also recommended discontinue antibiotic therapy due to complete moment of therapy as this time. Blood, sputum and urine cultures came back all negative. Patient is currently on room air saturating above 94%. Patient still weak but is working with physical therapy and doing incentive spirometry. Patient will go home with home health for physical therapy. Patient does not need any antibiotic at this time since he completed antibiotic treatment in the hospital. We will stop home lisinopril and start the patient on amlodipine 10 mg daily, Jardiance 10 mg daily and hydrochlorothiazide 12.5 mg daily. Patient and daughter both agreed and understands the plan. ROS Constitutional: Denies weight loss, fever and chills. HEENT: Denies changes in vision and hearing. Respiratory: Denies shortness of breath and cough Cardiovascular: Denies chest discomfort or palpitations GI: Denies abdominal pain, nausea, vomiting and diarrhea. : Denies dysuria and urinary frequency. Musculoskeletal: Denies myalgias and joint pain Skin: Denies rash and pruritus. Neurological: Denies dizziness, headache, vision or hearing problems Physical Examination General: Patient alert and oriented in person, place and time. Patient following commands. HEENT: Normocephalic, atraumatic, moist mucous membranes Respiratory/pulmonary: Clear lungs bilaterally, no associated crackles or wheezes. Cardiovascular: Normal heart sounds S1 and S2 with no associated murmurs Abdomen: Abdomen nondistended, there is no pain to palpation in any of the abdominal quadrants, no palpable masses. Extremities: There is no peripheral edema present at the lower extremities. Peripheral Pulses: 3+ Radial (R). 3+ Radial (L). 3+ Dorsalis pedis (R). 3+ Dorsalis pedis(L) Skin: No rashes or pruritus, there is no sacral edema present at this time. Neurological: Intact cranial nerves with no focal neurologic deficits Consults/Reason for consult Pulmonary/Critical care for mechanical ventilation management and critical illness management Operations or Procedures CHEST RADIOGRAPH Indication: Shortness of breath Technique: Single frontal view of the chest was obtained COMPARISON: None FINDINGS: Lines and Tubes: Endotracheal tube tip projects approximately 2.7 cm above the level of the ambar. Enteric catheter courses below the level of the diaphragm, terminating within the left upper quadrant. Lungs: Moderate opacification of the left lung consistent with pulmonary airspace disease. Pleura: No effusion. No pneumothorax. Cardiomediastinal contours: The heart is enlarged. Bones: Unremarkable IMPRESSION: 1. Left pulmonary airspace disease. 2. Cardiomegaly. 3. Lines and tubes as above. Exam: US US GUIDED VASCULAR ACCESS Clinical History: PICC LINE PLACEMENT Comparison: None Findings: Targeted sonographic evaluation of the arm vein was obtained utilizing grayscale and color Doppler imaging. IMPRESSION: Sonographic assistance for central line placement. Please refer to procedural report for detailed findings. Bilateral Chest Sonogram Date: 06/14/2024 10:58 AM Clinical history: poss pleural eff Findings: Limited sonographic evaluation of the right and left chest was performed to localize and ada fluid for thoracentesis. No fluid noted IMPRESSION: No fluid noted END IMPRESSION: Procedure: CT CHEST WITHOUT CONTRAST Reason for study/Clinical History: R/O asp pna Comparison Study: None available at time of dictation. Exam Date: 06/14/2024 03:49 PM TECHNIQUE: Multidetector CT of the chest was performed from the lung apices to the upper abdomen without the use of intravenous contract. Axial, coronal and sagittal multiplanar reformats were performed. Radiation Dose Information: CT Dose: CTDI volume is 30.75 mGy. Dose-length product is 802.15 mGy*cm The dose indicators for CT are the volume Computed Tomography (CT) Dose Index (CTDIvol) and the Dose Length Product (DLP), and are measured in units of mGy and mGy-cm, respectively. These indicators are not patient dose, but values generated from the CT scanner acquisition factors. The report includes radiation exposure data for exposures received during this examination. FINDINGS: Lower neck: Normal thyroid. Endotracheal tube and enteric tube in place. PICC line from right arm in place in the superior vena cava. Lungs: Bilateral perihilar peribronchial thickening with extension into the lower lobes bilaterally and bibasilar areas of atelectasis. Findings could be secondary to aspiration. Heart/Vascular Structures: Normal heart size. No pericardial effusion. Lymph Nodes: No adenopathy Pleura: No pleural effusion or significant pneumothorax. Musculoskeletal: No acute osseous abnormality. Soft tissues: Normal. Upper abdomen: Limited portions of the upper abdomen are unremarkable. IMPRESSION: 1. Bilateral perihilar peribronchial thickening and bibasilar areas of atelectasis may be consistent with aspiration. 2. Endotracheal tube and enteric tubes in place 3. PICC line from right arm in the superior vena cava above the right atrium EXAM: XR Chest, 1 View CLINICAL INDICATION: reeval TECHNIQUE: Frontal view of the chest. COMPARISON: XY CHEST XRAY 1 VIEW on DOS: 06/17/24, XY CHEST XRAY 1 VIEW on DOS: 06/16/24, XY CHEST XRAY 1 VIEW on DOS: 06/15/24, XY CHEST XRAY 1 VIEW on DOS: 06/14/24, XY CHEST XRAY 1 VIEW on DOS: 06/13/24 FINDINGS: LUNGS AND PLEURAL SPACES: Mild congestive heart failure. No consolidation. No pneumothorax. HEART: Unremarkable. No cardiomegaly. MEDIASTINUM: Unremarkable. Normal mediastinal contour. BONES/JOINTS: Unremarkable. No acute fracture. TUBES, LINES AND DEVICES: Right peripherally inserted central catheter (PICC) tip in the superior vena cava. The endotracheal tube (ETT) is in satisfactory position. Enteric tube tip in the stomach. OTHER FINDINGS: . . IMPRESSION: Mild congestive heart failure. Procedure: XY NECK FOR SOFT TISSUE Exam Date: 06/18/2024 10:46 PM History: foreign object Comparison Study: None available at time of dictation. Technique: Soft Tissue Neck: AP and lateral views. Findings: There is is no evidence for radiopaque foreign body in the neck. Right-sided PICC line tip is at the right subclavian superior vena cava junction. Nasogastric tube is far too low . It is in the bifurcation and should be pulled back at least 3 cm. Nasogastric tube appears to be in the stomach. There is cardiomegaly and bilateral pleural effusions. IMPRESSION: 1. PICC line tip is at the right subclavian superior vena cava junction. Endotracheal tube should be pulled back 3 cm. No radiopaque foreign body is seen. Heart size consistent with cardiomegaly there is bilateral pleural effusions CHEST RADIOGRAPH Indication: reeval post extubation Technique: Single frontal view of the chest was obtained Comparison: XY CHEST XRAY 1 VIEW on DOS: 06/20/24, XY CHEST XRAY 1 VIEW on DOS: 06/19/24, XY CHEST XRAY 1 VIEW on DOS: 06/18/24, XY CHEST XRAY 1 VIEW on DOS: 06/17/24, XY CHEST XRAY 1 VIEW on DOS: 06/16/24 FINDINGS: Lines and Tubes: Right PICC tip in the SVC Lungs: No focal consolidation. Pleura: No effusion. No pneumothorax. Cardiomediastinal contours: Unremarkable Bones: No acute osseous abnormality. IMPRESSION: No acute cardiopulmonary disease. 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% Acute hypernatremia NSTEMI type 2 likely due to above DI likely due to vasomotor nephropathy, resolved Primary hypertension Dyslipidemia Morbid obesity Grade III Discharge Disposition: Home with Health Services Discharge Instruct/Medications Diet: Cardiac 2g Na,low cholest Activity: No Restrictions, As Tolerated Follow Up/Referral: F/U with her PCP in 1 week F/U with cardiology in 1-2 weeks F/U on discharge clinic Medications: Stop lisinopril Start amlodipine 10 mg daily Start Jardiance 10 mg daily Start hydrochlorothiazide 12.5 mg daily Discharge Statement: "Patient was advised to return to the ER or call 911 if any headaches, dizziness, shortness of breath, chest pain, abdominal pain, bleeding, fevers, or worsening of medical condition. Patient was counseled about treatment plan, medications, possible side effects, patientverbalized understanding. All questions were answered to the best of my ability. 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 I have reviewed the documentation, discussed the case with resident and agree with the resident's documentation except as noted. Also the patient's clinical case was discussed with the patient's nurse. This medical document was created using an electronic medical record system with computerized dictation system. Although this document has been carefully reviewed, there might still be some phonetic and typographical errors. These areas are purely typographical due to imperfections of the software programs, and do not reflect any compromise in the patient's medical care. Late signature. Date of Service: Jun 25, 2024 Billing Provider: VY ALFARO MD Common Visit Codes: 77841-DOV/OBS DISCH DAY >30min CHRIS JOSE RESIDENT Jun 25, 2024 10:34 VY ALFARO MD Jun 26, 2024 05:53
--- NOTE | 2024-06-25 12:42 | DVHPN2 ---
Progress Note - Dictate Date Seen: Jun 25, 2024 Has the PT tested + for MRSA If YES, has PT been informed?: No Medical Necessity Reason Pt with a Central, PICC or Fol: Yes The following are medically ne: Bae Catheter Reason for bae catheter: Strict I&O Subjective Patient is expecting to be discharged today. S/P Extubation on 06/20. vital signs Vital Sign Date Time Temp Pulse Resp B/P (MAP) Pulse Ox O2 Delivery O2 Flow Rate FiO2 06/25/24 10:45 66 20 100 06/25/24 10:38 Nasal Cannula 2.0 06/25/24 10:38 28 06/25/24 09:47 130/88 06/25/24 09:00 98.1 98.1 Total Intake and Output 06/24/24 06/24/24 06/25/24 15:00 23:00 07:00 Intake Total 1780 ml 305 ml 950 ml Output Total 477 ml Balance 1780 ml 305 ml 473 ml medications Current Medications Medications Dose Ordered Sig/Maday Route Start Time Stop Time Status Last Admin Dose Admin Ondansetron HCl 4 mg Q4HP PRN IV 06/09/24 08:00 06/20/24 21:57 4 MG Hydralazine HCl 10 mg Q6HP PRN IV 06/09/24 08:00 06/23/24 16:12 10 MG Aspirin 81 mg DAILY PO 06/10/24 10:00 06/25/24 09:45 81 MG Atorvastatin Calcium 40 mg HS PO 06/09/24 22:00 06/24/24 21:30 40 MG Pantoprazole Sodium 40 mg DAILY IV 06/09/24 10:00 06/25/24 09:46 40 MG Albuterol 2.5 mg Q6HR NEB 06/09/24 12:00 06/25/24 10:38 2.5 MG Ipratropium [place] 0.5 mg Q6HR NEB 06/09/24 12:00 06/25/24 10:38 0.5 MG Amlodipine Besylate 10 mg DAILY PO 06/11/24 08:15 06/25/24 09:46 10 MG Sodium Chloride 10 ml QSHIFT@10,22 IV 06/14/24 10:00 06/25/24 09:47 10 ML Acetaminophen 650 mg Q6HP PRN GT 06/16/24 20:30 06/23/24 02:27 650 MG Morphine Sulfate 1 mg Q6HP PRN IV 06/20/24 17:30 06/25/24 09:47 1 MG objective General: Patient alert and oriented in person and place but not in time. S/P extubation. HEENT: Normocephalic, atraumatic, moist mucous membranes Respiratory/pulmonary: Clear lungs bilaterally, no associated crackles or wheezes. Cardiovascular: Normal heart sounds S1 and S2 with no associated murmurs Abdomen: Abdomen nondistended, there is no pain to palpation in any of the abdominal quadrants, no palpable masses. Extremities: There is no peripheral edema present at the lower extremities. Skin: No rashes or pruritus, there is no sacral edema present at this time. laboratory and microbiology Laboratory Tests 06/25/24 07:58 Test 06/25/24 07:58 Range/Units Serum Glucose 93 74-106 mg/dL Assessment/Plan Patient is a 63-year-old male presents to the hospital with: Lactic acidosis resolved Angioedema Acute hypoxic respiratory failure s/p extubation Leucocytosis Delirium Recommendations Antibiotics resumed by Primary Team, on IV Doxycycline and Zosyn. However I advised to switched Doxycycline to Vancomycin IV Discontinue Antibiotics Repeat 2 sets of blood culture, cultures reviewed came back negative Blood pressure is stable Will monitor for any acute worsening He is receiving broad spectrum antibiotics Doxycycline and Zosyn since 06/10, Leucocytosis is likely reactive personally reviewed imaging CXR no infiltrate monitor WBC, trending down 06/24, WBC trending down, currently at 16.3K Antibiotic status: Doxycycline IV [Started on 06/10 - Ongoing] Zosyn IV [Started on 06/13 - Ongoing] It's unclear what is the reason for Angioedema. Review of culture: 06/09, Respiratory culture showed no growth 06/10, MRSA screening negative 06/13, Respiratory culture showed no growth 06/16, Respiratory culture showed no growth 06/16, Blood culture showed no growth 06/18, Urine culture showed no growth Plan discussed with Primary Team A total of 50 minutes was spent performing this encounter on this date of service. My evaluation of this patient included review of the chart, history, laboratory, imaging findings and discussion with the patient and or family, treatment team placing orders and documenting the plan. Thank you for consult Dietary Evaluation Review Comments: 1. Recommend Vital HP while on high-dose propofol; begin @ 10 ml/hr, advance by 10 ml Q4 or as tolerated to goal-rate of 50 ml/hr continuously 2. Provide minimal free water flushes for tube patency of 30 ml Q6 (120 ml total); adjust PRN 3. Monitor BMP/lytes and replete per protocol TF Provision: TF at goal to provide 1200 ml total volume, 1200 kcal (+562 via propofol = 1762 kcal), 105 gm pro, 0 gm fiber, 1103 ml H20 (meets 100% est. kcal needs, 100% est. pro needs) Expected Outcomes/Goals: Adequate nutrition, weight maintenance, improved hemodynamic stability. AMY WADSWORTH MD Jun 25, 2024 12:41
--- NOTE | 2024-06-25 12:58 | DVHPN2 ---
Progress Note - Dictate Date Seen: Jun 25, 2024 Has the PT tested + for MRSA If YES, has PT been informed?: No Medical Necessity Reason Pt with a Central, PICC or Fol: Yes The following are medically ne: Bae Catheter Reason for bae catheter: Strict I&O vital signs Vital Sign Date Time Temp Pulse Resp B/P (MAP) Pulse Ox O2 Delivery O2 Flow Rate FiO2 06/25/24 10:45 66 20 100 06/25/24 10:38 Nasal Cannula 2.0 06/25/24 10:38 28 06/25/24 09:47 130/88 06/25/24 09:00 98.1 98.1 Total Intake and Output 06/24/24 06/24/24 06/25/24 15:00 23:00 07:00 Intake Total 1780 ml 305 ml 950 ml Output Total 477 ml Balance 1780 ml 305 ml 473 ml medications Current Medications Medications Dose Ordered Sig/Maday Route Start Time Stop Time Status Last Admin Dose Admin Ondansetron HCl 4 mg Q4HP PRN IV 06/09/24 08:00 06/20/24 21:57 4 MG Hydralazine HCl 10 mg Q6HP PRN IV 06/09/24 08:00 06/23/24 16:12 10 MG Aspirin 81 mg DAILY PO 06/10/24 10:00 06/25/24 09:45 81 MG Atorvastatin Calcium 40 mg HS PO 06/09/24 22:00 06/24/24 21:30 40 MG Pantoprazole Sodium 40 mg DAILY IV 06/09/24 10:00 06/25/24 09:46 40 MG Albuterol 2.5 mg Q6HR NEB 06/09/24 12:00 06/25/24 10:38 2.5 MG Ipratropium [place] 0.5 mg Q6HR NEB 06/09/24 12:00 06/25/24 10:38 0.5 MG Amlodipine Besylate 10 mg DAILY PO 06/11/24 08:15 06/25/24 09:46 10 MG Sodium Chloride 10 ml QSHIFT@10,22 IV 06/14/24 10:00 06/25/24 09:47 10 ML Acetaminophen 650 mg Q6HP PRN GT 06/16/24 20:30 06/23/24 02:27 650 MG Morphine Sulfate 1 mg Q6HP PRN IV 06/20/24 17:30 06/25/24 09:47 1 MG laboratory and microbiology Laboratory Tests 06/25/24 07:58 Test 06/25/24 07:58 Range/Units Serum Glucose 93 74-106 mg/dL Assessment/Plan Impression Acute hypoxemic respiratory failure Angioedema Morbid obesity Pneumonia Patient seen and examined in ICU Events S/p extubation Low oxygen requirements On 4 liters nasal cannula Angioedema secondary to Lisinopril resolved s/p d/grade following commands Labs and imaging reviewed Management Supplemental oxygen Titrate to maintain sats 90% or above Incentive spirometry Prn bipap at night Continue antibiotics F/u cultures Bronchodilators IV steroids Monitor renal function Monitor electrolytes Supplement as needed ambulate with PT ok to d/grade DVT prophylaxis dispo per primary team Dietary Evaluation Review Comments: 1. Recommend Vital HP while on high-dose propofol; begin @ 10 ml/hr, advance by 10 ml Q4 or as tolerated to goal-rate of 50 ml/hr continuously 2. Provide minimal free water flushes for tube patency of 30 ml Q6 (120 ml total); adjust PRN 3. Monitor BMP/lytes and replete per protocol TF Provision: TF at goal to provide 1200 ml total volume, 1200 kcal (+562 via propofol = 1762 kcal), 105 gm pro, 0 gm fiber, 1103 ml H20 (meets 100% est. kcal needs, 100% est. pro needs) Expected Outcomes/Goals: Adequate nutrition, weight maintenance, improved hemodynamic stability. Plan discussed with: Other (pt) DEQUAN MORALES MD Jun 25, 2024 12:58
== END 2024-06-25 15:50 | disposition home health service (06) | DRG 720 ==
LOC: ER 02:21 → OVERFLOW 07:51 → ICU WEST 06-10 18:00 → TELE-CENTR 06-23 15:44
PROVIDERS: ADMIT Internal Medicine; ATTEND Emergency Medicine
PROC: 5A1955Z Respiratory Ventilation, Greater than 96 Consecutive Hours (ICD-10-PCS; principal; 2024-06-09)
PROC: 0BH17EZ Insertion of Endotracheal Airway into Trachea, Via Natural or Artificial Opening (ICD-10-PCS; 2024-06-09)
PROC: 0DH67UZ Insertion of Feeding Device into Stomach, Via Natural or Artificial Opening (ICD-10-PCS; 2024-06-09)
PROC: 02HV33Z Insertion of Infusion Device into Superior Vena Cava, Percutaneous Approach (ICD-10-PCS; 2024-06-14)
PROC: B548ZZA Ultrasonography of Superior Vena Cava, Guidance (ICD-10-PCS; 2024-06-14)
PROC: 0B9D8ZX Drainage of Right Middle Lung Lobe, Via Natural or Artificial Opening Endoscopic, Diagnostic (ICD-10-PCS; 2024-06-16)
PROC: 0BC78ZZ Extirpation of Matter from Left Main Bronchus, Via Natural or Artificial Opening Endoscopic (ICD-10-PCS; 2024-06-16)
PROC: 0BC38ZZ Extirpation of Matter from Right Main Bronchus, Via Natural or Artificial Opening Endoscopic (ICD-10-PCS; 2024-06-16)
DX: A41.9 Sepsis, unspecified organism (principal); J96.01 Acute respiratory failure with hypoxia; N17.0 Acute kidney failure with tubular necrosis; J69.0 Pneumonitis due to inhalation of food and vomit; G92.8 Other toxic encephalopathy; I50.23 Acute on chronic systolic (congestive) heart failure; I21.A1 Myocardial infarction type 2; J18.9 Pneumonia, unspecified organism; E87.4 Mixed disorder of acid-base balance; T78.2XXA Anaphylactic shock, unspecified, initial encounter; I13.0 Hypertensive heart and chronic kidney disease with heart failure and stage 1 through stage 4 chronic kidney disease, or unspecified chronic kidney disease; T78.3XXA Angioneurotic edema, initial encounter; N18.2 Chronic kidney disease, stage 2 (mild); Z20.822 Contact with and (suspected) exposure to COVID-19; E66.01 Morbid (severe) obesity due to excess calories; E78.5 Hyperlipidemia, unspecified; E87.0 Hyperosmolality and hypernatremia; R65.20 Severe sepsis without septic shock; T46.4X5A Adverse effect of angiotensin-converting-enzyme inhibitors, initial encounter; I45.10 Unspecified right bundle-branch block; R13.10 Dysphagia, unspecified; Z68.41 Body mass index [BMI] 40.0-44.9, adult; Z79.899 Other long term (current) drug therapy; Y92.89 Other specified places as the place of occurrence of the external cause
CPT/HCPCS: 31500; 36415; 36569; 36600; 70360; 71045; 71250; 76604; 76937; 80048; 80053; 80061; 80202; 81001; 82805; 83036; 83605; 83735; 83880; 84100; 84132; 84295; 84443; 84484; 85007; 85025; 85027; 85610; 85730; 87040; 87070; 87081; 87086; 87205; 87426; 87804; 92610; 93005; 93306; 94002; 94003; 94640; 96365; 96372; 96375; 97116; 97163; 97530; 99291; G0378; J0171; J0330; J1100; J2250; J2405; J2470; J2543; J2704; J3480; J7060